=== PATIENT | female | born 1935 | race Caucasian/White ===

== ENCOUNTER 2021-04-18 10:47 | Inpatient (IN) ==
--- NOTE | 2021-04-18 10:56 | Emergency Department Note ---
HPI General Chief complaint: Shortness of Breath/Dyspnea Stated complaint: SOB Time Seen by Provider: 04/18/21 10:56 Source: patient Mode of arrival: EMS Limitations: no limitations History of Present Illness HPI Narrative: 85-year-old female with past medical history of CKD, hypertension, and GERD presenting with cough and confusion. She lives at a nursing facility and was sent over today because she seemed more confused than usual and has had a cough productive of brown sputum for the last 3 days. Patient states she received her Covid booster shot 4 days ago. She endorses chills but no fevers. No headache, chest pain, shortness of breath, abdominal pain, vomiting, or leg swelling. Not on anticoagulation. No other complaints. Related Data Home Medications Medication Instructions Recorded Confirmed acetaminophen 325 mg tablet 650 mg PO Q4H PRN 08/28/20 08/28/20 (Tylenol) aspirin 81 mg chewable tablet 81 mg PO QDAY 08/28/20 08/28/20 baclofen 10 mg tablet 10 mg PO QDAY 08/28/20 08/28/20 ciprofloxacin HCl 500 mg tablet 500 mg PO BID 08/28/20 08/28/20 fluoxetine 10 mg tablet 10 mg PO QDAY 08/28/20 08/28/20 furosemide 20 mg tablet 30 mg PO QAM 08/28/20 08/28/20 lisinopril 10 mg tablet 10 mg PO QDAY 08/28/20 08/28/20 multivitamin (Daily Multi-Vitamin) 1 tab PO QAM 08/28/20 08/28/20 pantoprazole 40 mg tablet,delayed 40 mg PO QDAY 08/28/20 08/28/20 release potassium 20 mg chewable tablet 10 mg PO DAILY 08/28/20 08/28/20 pramipexole 1 mg tablet 1 mg PO TID 08/28/20 08/28/20 pregabalin 50 mg capsule (Lyrica) 50 mg PO QDAY 08/28/20 08/28/20 tramadol 50 mg tablet 50 mg PO TID PRN 08/28/20 08/28/20 Allergies Allergy/AdvReac Type Severity Reaction Status Date / Time No Known Drug Allergies Allergy Unverified 08/28/20 06:56 Review of Systems ROS ROS Narrative: Narrative: Constitutional: Reports chills; Denies fever Eyes: Denies vision change ENT ED: Denies throat pain Cardiovascular: Denies chest pain or palpitations Respiratory: Reports cough and phlegm; Denies shortness of breath Gastrointestinal: Denies abdominal pain, nausea or vomiting Genitourinary: Denies dysuria or frequency Musculoskeletal: Denies back pain or joint swelling Integumentary: Denies rash Neurological: Reports confusion; Denies headache or weakness Psychiatric: Denies anxiety Endocrine: Denies fatigue Hematological/Lymphatic: Denies easy bleeding PFSH Narrative Patient History Narrative: Narrative: Medical/Surgical/Family History All Active Problems (Updated 04/18/21 @ 14:31 by Kevin Grijalva MD) Pneumonia (Acute) Renal insufficiency (Acute) Leukocytosis (Acute) UTI (urinary tract infection) (Acute) Social History Smoking Status: Former smoker Exam Narrative Narrative: Narrative: General Limitations: no limitations General appearance: Present alert and in no apparent distress Head Head: Present atraumatic and normocephalic Eye Eye: Present normal appearance, PERRL and EOMI; Absent scleral icterus or conjunctival injection ENT ENT: Present normal oropharynx and mucous membranes moist Neck Neck: Present normal inspection, full ROM and trachea midline Chest Chest: Present symmetric chest wall rise Respiratory Respiratory: Present rales/crackles (Base and right midlung); Absent respiratory distress, wheezes, stridor or accessory muscle use Cardiovascular Cardiovascular: Present regular rate and normal rhythm; Absent systolic murmur or diastolic murmur Adbominal Abdominal: Present soft; Absent distention, tenderness, guarding, rebound or rigidity Extremities Extremities: Present normal inspection; Absent pretibial edema Back Back: Present normal inspection; Absent CVA tenderness (R), CVA tenderness (L) or spinous process tenderness Neurological Neurological: Present alert, oriented X3 and CN II-XII intact; Absent motor sensory deficit Expanded Neurological Patient oriented to: Present person, place and time Speech: Absent expressive aphasia or dysarthria CRANIAL NERVES: EOM function (II, III, IV, ): Normal, facial sensation (V): Normal, facial palsy (VII): Normal, gag reflex (IX): Normal, spinal accessory function (XI): Normal and tongue deviation (XII): Normal CEREBELLAR FUNCTION: finger to nose: Normal Motor strength - LUE: 5/5 Motor strength - RUE: 5/5 Motor strength - LLE: 5/5 Motor strength - RLE: 5/5 SENSORY EXAM UPPER EXTREMITY: Normal: light touch SENSORY EXAM LOWER EXTREMITY: Normal: light touch Coma Scale Eye Opening: Spontaneous Coma Scale Motor Response: Obeys Commands Coma Scale Verbal Response: Oriented Coma Scale Total: 15 Psychiatric Psychiatric: Present normal affect and normal mood Skin Skin: Present warm (WNL) and dry Course Consultations Consultation #1: Dr. Pack, hospitalist Time: 14:29 Vital Signs Vital signs: Vital Signs Temperature 99.9 F H 04/18/21 10:50 Pulse Rate 105 H 04/18/21 10:50 Respiratory Rate 24 H 04/18/21 10:50 Blood Pressure 110/53 04/18/21 10:50 Pulse Oximetry (%) 98 04/18/21 10:50 Temperature 99.9 F H 04/18/21 10:50 Pulse Rate 101 H 04/18/21 14:00 Respiratory Rate 21 04/18/21 14:00 Blood Pressure 122/89 04/18/21 14:00 Pulse Oximetry (%) 84 L 04/18/21 14:00 MDM MDM Narrative Medical decision making narrative: 85-year-old female presenting with cough and confusion. She was hypoxic on room air to 88%. She is A&O x3 here in the ED. Concern for sepsis given she was initially hypotensive. Will obtain labs, blood cultures, UA, and chest x-ray. 2 L of normal saline ordered. Bladder scan in the ED was 27 cc. Chest x-ray shows evidence of right-sided pneumonia. Labs notable for a leukocytosis to 21.4. Creatinine is 3.1, unknown baseline. Lactate level was normal. She continued to be borderline hypotensive so a 3rd L of normal saline was ordered and her last blood pressure was 122/89. Troponin is elevated to 0.11 in the setting of her kidney disease. Low concern for cardiac etiology gi rayna she had an EKG with no signs of ischemia and patient has not had any chest pain. Vancomycin and Zosyn ordered. UA also shows possible infection, urine culture and blood culture sent. Patient remains stable and alert. I discussed patient with hospitalist Dr. Pack. Will repeat her troponin and then admit for further management. Lab Data Lab results reviewed: Yes I reviewed the patient's lab results. Result diagrams: 04/18/21 11:38 04/18/21 11:38 Labs: Lab Results 04/18/21 04/18/21 04/18/21 Range/Units 11:38 11:38 11:38 WBC 21.4 H (4.5-11.0) K/mcL RBC 2.79 L (3.59-5.38) M/mcL Hgb 8.7 L (11.2-15.7) g/dL Hct 26.4 L (34.1-44.9) % MCV 94.6 (80.0-100.0) fL MCH 31.2 (26.0-34.0) pg MCHC 33.0 (31.0-36.0) g/dL RDW 14.4 (11.5-14.5) % Plt Count 258 (140-440) K/mcL MPV 9.7 (7.4-10.4) fL Neut % (Auto) 88.1 H (38.0-78.0) % Lymph % (Auto) 4.2 L (15.5-49.0) % [place] % (Auto) 7.6 (1.0-12.0) % Eos % (Auto) 0 (0.0-7.0) % Baso % (Auto) 0.1 (0.0-2.0) % Lymph # (Auto) 0.89 L (1.50-4.80) K/mcL [place] # (Auto) 1.62 H (0.10-0.90) K/mcL Eos # (Auto) 0.01 (0.00-0.70) K/mcL Baso # (Auto) 0.03 (0.00-0.30) K/mcL Absolute Neutrophils 18.84 H (1.80-8.00) K/mcL VBG Lactic Acid 0.9 (0.5-2.0) mmol/L Sodium 136 (133-145) mmol/L Potassium 5.2 H (3.3-5.1) mmol/L Chloride 100 (96-108) mmol/L Carbon Dioxide 20 L (22-30) mmol/L Anion Gap 16.0 (8.0-16.0) BUN 83 H (8-23) mg/dL Creatinine 3.1 H (0.6-1.1) mg/dL GFR Calculation 13 Glucose 77 (70-105) mg/dL Calcium 9.0 (8.6-10.4) mg/dL Total Bilirubin 0.3 (0.1-1.0) mg/dL AST 42 H (<32) U/L ALT 26 (<40) U/L Alkaline Phosphatase 93 (39-117) U/L Troponin T (<0.03) ng/mL NT-Pro-B Natriuret Pep 2223.0 H (<450.0) pg/mL Total Protein 7.4 (5.9-8.4) gm/dL Albumin 3.1 L (3.2-5.2) gm/dL Globulin 4.3 H (2.2-3.7) gm/dL Albumin/Globulin Ratio 0.7 L (1.0-2.3) Urine Color Urine Appearance (Clear) Urine pH (5.0-9.0) Ur Specific [place] (1.000-1.035) Urine Protein (Negative) mg/dL Urine Glucose (UA) (Negative) mg/dL Urine Ketones (Negative) mg/dL Urine Occult Blood (Negative) mg/dL Urine Nitrate (Negative) Urine Bilirubin (Negative) mg/dL Urine Urobilinogen mg/dL Ur Leukocyte Esterase (Negative) /uL Urine RBC (0-3) /hpf Urine WBC (0-4) /hpf Ur Squamous Epith Cells (0-4) /hpf Urine Bacteria (0) /hpf Hyaline Casts (0-2) /lph Urine Mucus (None) /hpf Ur Culture Indicated? 04/18/21 04/18/21 Range/Units 11:38 12:50 WBC (4.5-11.0) K/mcL RBC (3.59-5.38) M/mcL Hgb (11.2-15.7) g/dL Hct (34.1-44.9) % MCV (80.0-100.0) fL MCH (26.0-34.0) pg MCHC (31.0-36.0) g/dL RDW (11.5-14.5) % Plt Count (140-440) K/mcL MPV (7.4-10.4) fL Neut % (Auto) (38.0-78.0) % Lymph % (Auto) (15.5-49.0) % [place] % (Auto) (1.0-12.0) % Eos % (Auto) (0.0-7.0) % Baso % (Auto) (0.0-2.0) % Lymph # (Auto) (1.50-4.80) K/mcL [place] # (Auto) (0.10-0.90) K/mcL Eos # (Auto) (0.00-0.70) K/mcL Baso # (Auto) (0.00-0.30) K/mcL Absolute Neutrophils (1.80-8.00) K/mcL VBG Lactic Acid (0.5-2.0) mmol/L Sodium (133-145) mmol/L Potassium (3.3-5.1) mmol/L Chloride (96-108) mmol/L Carbon Dioxide (22-30) mmol/L Anion Gap (8.0-16.0) BUN (8-23) mg/dL Creatinine (0.6-1.1) mg/dL GFR Calculation Glucose (70-105) mg/dL Calcium (8.6-10.4) mg/dL Total Bilirubin (0.1-1.0) mg/dL AST (<32) U/L ALT (<40) U/L Alkaline Phosphatase (39-117) U/L Troponin T 0.11 H* (<0.03) ng/mL NT-Pro-B Natriuret Pep (<450.0) pg/mL Total Protein (5.9-8.4) gm/dL Albumin (3.2-5.2) gm/dL Globulin (2.2-3.7) gm/dL Albumin/Globulin Ratio (1.0-2.3) Urine Color Yellow Urine Appearance Hazy A (Clear) Urine pH 5.0 (5.0-9.0) Ur Specific [place] 1.012 (1.000-1.035) Urine Protein Negative (Negative) mg/dL Urine Glucose (UA) Negative (Negative) mg/dL Urine Ketones Negative (Negative) mg/dL Urine Occult Blood 0.20 (Negative) mg/dL Urine Nitrate Pos A (Negative) Urine Bilirubin Negative (Negative) mg/dL Urine Urobilinogen Negative mg/dL Ur Leukocyte Esterase 25 A (Negative) /uL Urine RBC 1 (0-3) /hpf Urine WBC 8 H (0-4) /hpf Ur Squamous Epith Cells 4 (0-4) /hpf Urine Bacteria Many A (0) /hpf Hyaline Casts 3 H (0-2) /lph Urine Mucus Few A (None) /hpf Ur Culture Indicated? Yes ED POC Tests ED POC Tests: SALAS - Influenza A Negative SALAS - Influenza B Negative SALAS - SARS Antigen Negative Radiology Data Radiology results reviewed: Yes I reviewed the patient's radiology results. Radiology results narrative: Ordering Physician:Kevin Grijalva M.D. Date of Service:04/18/21 Procedure(s):XR chest 1V portable CLINICAL INFORMATION: Cough shortness of breath. History of smoking COMPARISON: None. TECHNIQUE: PA and Lateral views FINDINGS: The heart is normal size for technique. Mediastinum and pulmonary vessels are normal. Small patchy right basilar infiltrate noted with small right pleural effusion. IMPRESSION: Small patchy right basilar infiltrate and tiny right pleural effusion. Interpreted and Authenticated by: Bob Ellis 04/18/21 EKG Data EKG #1: EKG attestation: Yes I reviewed and interpreted this EKG. and Yes There a re no EKG findings of acute coronary syndrome EKG results narrative: Normal sinus rhythm at 94 bpm. No peak T waves. No ST elevation or depression. QRS is normal. Interpretation: no acute changes Discharge Plan Patient/Caregiver Discharge Instructions Pt seen by SOFTWARE ENGINEER SALES/PA only: No Clinical Impression: Pneumonia, Renal insufficiency, Leukocytosis, UTI (urinary tract infection) Patient Disposition: Xfer As Inpt ([facility]) Condition: Fair Follow up with: Kayla Bello ARNP [Primary Care Provider] - Prescriptions: No Action acetaminophen [Tylenol] 325 mg Tablet 650 mg PO Q4H PRN (Reason: pain/elevated temp) 0RF multivitamin [Daily Multi-Vitamin] Tablet 1 tab PO QAM 0RF pramipexole 1 mg Tablet 1 mg PO TID 0RF fluoxetine 10 mg Tablet 10 mg PO QDAY 0RF ciprofloxacin HCl 500 mg Tablet 500 mg PO BID 0RF tramadol 50 mg Tablet 50 mg PO TID PRN (Reason: Pain) 0RF baclofen 10 mg Tablet 10 mg PO QDAY 0RF pantoprazole 40 mg Tablet,Delayed Release (Dr/Ec) 40 mg PO QDAY 0RF lisinopril 10 mg Tablet 10 mg PO QDAY 0RF aspirin 81 mg Tablet,Chewable 81 mg PO QDAY 0RF furosemide 20 mg Tablet 30 mg PO QAM 0RF potassium 20 mg Tablet,Chewable 10 mg PO DAILY 0RF pregabalin [Lyrica] 50 mg Capsule 50 mg PO QDAY 0RF
[2021-04-18] MEDS ORDERED: 0.9 % SODIUM CHLORIDE 1,000 ML IV ONE ×3 (11:31→13:38)
--- NOTE | 2021-04-18 12:07 | XRay Report ---
CLINICAL INFORMATION: Cough shortness of breath. History of smoking COMPARISON: None. TECHNIQUE: PA and Lateral views FINDINGS: The heart is normal size for technique. Mediastinum and pulmonary vessels are normal. Small patchy right basilar infiltrate noted with small right pleural effusion. IMPRESSION: Small patchy right basilar infiltrate and tiny right pleural effusion. Interpreted and Authenticated by: Bob Ellis 04/18/21
[2021-04-18 12:31] LABS: Basophils # (Auto) 0.03 K/mcL (0.00-0.30); Basophils % (Auto) 0.1 % (0.0-2.0); Eosinophils # (Auto) 0.01 K/mcL (0.00-0.70); Eosinophils % (Auto) 0 % (0.0-7.0); Hematocrit 26.4 % (34.1-44.9); Hemoglobin 8.7 g/dL (11.2-15.7); Lymphocytes # (Auto) 0.89 K/mcL (1.50-4.80); Lymphocytes % (Auto) 4.2 % (15.5-49.0); Mean Cell Volume 94.6 fL (80.0-100.0); Mean Platelet Volume 9.7 fL (7.4-10.4); Monocytes # (Auto) 1.62 K/mcL (0.10-0.90); Monocytes % (Auto) 7.6 % (1.0-12.0); Neutrophils % (Auto) 88.1 % (38.0-78.0); Platelet Count 258 K/mcL (140-440); RBC 2.79 M/mcL (3.59-5.38); Red Cell Distribution Width 14.4 % (11.5-14.5); WBC 21.4 K/mcL (4.5-11.0)
[2021-04-18 12:57] LABS: ALT/SGPT 26 U/L (<40); AST/SGOT 42 U/L (<32); Albumin 3.1 gm/dL (3.2-5.2); Albumin/Globulin Ratio 0.7 (1.0-2.3); Alkaline Phosphatase 93 U/L (39-117); Bilirubin,Total 0.3 mg/dL (0.1-1.0); Blood Urea Nitrogen 83 mg/dL (8-23); Carbon Dioxide 20 mmol/L (22-30); Chloride 100 mmol/L (96-108); Globulin 4.3 gm/dL (2.2-3.7); Glomerular Filtration Rate 13; Glucose 77 mg/dL (70-105)
[2021-04-18] MEDS ORDERED: PIPERACILLIN SODIUM/TAZOBACTAM 3.375 GM in DEXTROSE 5% IN WATER 50 ML IV ONE (12:58)
[2021-04-18] MEDS ORDERED: VANCOMYCIN 1,500 MG in 0.9 % SODIUM CHLORIDE 500 ML IV ONE (12:58)
[2021-04-18 14:05] LABS: Appearance,Urine HAZY (Clear); Bacteria,Urine MANY /hpf (0); Bilirubin,Urine Negative (Negative); Color,Urine YELLOW; Culture Indicated,Urine Yes; Glucose,Urine (UA) Negative (Negative); Ketones,Urine Negative (Negative); Leukocyte Esterase,Urine 25 /uL (Negative); Mucus,Urine FEW /hpf; Nitrate,Urine POS (Negative); Protein,Urine Negative (Negative); Specific Gravity,Urine 1.012 (1.000-1.035); Urine Hyaline Cast 3 /lph (0-2); Urine RBC 1 /hpf (0-3); Urine Squamous Epithelial Cell 4 /hpf (0-4); Urine WBC 8 /hpf (0-4); Urobilinogen,Urine Negative
--- NOTE | 2021-04-18 15:19 | Internal Med History&Physical ---
HPI History of Present Illness Patient information: Note initiated : 04/18/21 at 3:08 pm Service Date, if different from initiated Date: [] Patient: Savanah Rubio a 85 y/o F admitted on for Shortness of breath. Chief Complaint: [] History of present illness: Ms. Rubio is a 85 year old F Who resides at [facility] was brought in from the facility because she was confused, also report of productive cough over the last 2 3 days. Per notes it was brown sputum but per patient who is now mentally more clear she states it was bloody mucus. She does report some shortness of breath with past couple days. Does report chills as well. She does have a history of obstructive sleep apnea and uses CPAP and is working on getting oxygen at night as well. Recent received a Covid booster. Covid and flu negative in the ED. Troponin 0 0.11, patient denies chest pain she does have acute on chronic CKD. Per discussion with the ED physician no EKG changes. Suspect secondary to demand but pending follow-up troponin before admission. She was found to be hypoxic in the low 80s on admit, she was hypotensive. She received several liters of IV fluid and supplemental oxygen with improvement in vital signs and her mentation. Antibiotic started in the ED. Review of Systems: Positive as above. Denies headache/fever/nausea/vomiting/chest or abdominal pain/diarrhea. Otherwise see above. PFSH PFSH All Active Problems (Updated 04/18/21 @ 14:31 by Kevin Grijalva MD) Pneumonia (Acute) Renal insufficiency (Acute) Leukocytosis (Acute) UTI (urinary tract infection) (Acute) MEDS/ALLERGIES Home Medications and Allergies Home Medications Medication Instructions Recorded Confirmed Type acetaminophen 325 mg tablet 650 mg PO Q4H PRN 08/28/20 08/28/20 History (Tylenol) aspirin 81 mg chewable tablet 81 mg PO QDAY 08/28/20 04/18/21 History baclofen 10 mg tablet 10 mg PO QDAY 08/28/20 04/18/21 History ciprofloxacin HCl 500 mg tablet 500 mg PO BID 08/28/20 08/28/20 History fluoxetine 10 mg tablet 10 mg PO QDAY 08/28/20 04/18/21 History furosemide 20 mg tablet 30 mg PO QAM 08/28/20 08/28/20 History lisinopril 10 mg tablet 10 mg PO QDAY 08/28/20 04/18/21 History multivitamin (Daily Multi-Vitamin) 1 tab PO QAM 08/28/20 04/18/21 History pantoprazole 40 mg tablet,delayed 40 mg PO QDAY 08/28/20 08/28/20 History release potassium 20 mg chewable tablet 10 mg PO DAILY 08/28/20 08/28/20 History pramipexole 1 mg tablet 1 mg PO TID PRN 08/28/20 04/18/21 History pregabalin 50 mg capsule (Lyrica) 50 mg PO HS 08/28/20 04/18/21 History tramadol 50 mg tablet 50 mg PO TID PRN 08/28/20 08/28/20 History fluticasone furoate 100 1 ea INHALATION DAILY 04/18/21 04/18/21 History mcg-vilanterol 25 mcg/dose inhalation powder (Breo Ellipta) tiotropium bromide 18 mcg capsule 18 mcg INHALATION DAILY 04/18/21 04/18/21 History with inhalation device (Spiriva with HandiHaler) torsemide 20 mg tablet 20 mg PO DAILY 04/18/21 04/18/21 History Allergies Allergy/AdvReac Type Severity Reaction Status Date / Time No Known Drug Allergies Allergy Unverified 08/28/20 06:56 EXAM Constitutional Vitals: Temp Pulse Resp BP Pulse Ox 99.9 F H 39 L 23 H 127/106 64 L 04/18/21 10:50 04/18/21 14:30 04/18/21 14:45 04/18/21 14:45 04/18/21 14:30 Exam: General: Alert, Awake, No acute Distress, obese Eyes/N/T: EOMI, PERRL, dryMM Head/Neck: neck supple, normocephalic atraumatic CV: RRR, 1/6 SM, normal s1/s2 Pulm: Diminished b/l, no wheezing Abd: soft, nontender, +BS x4 Ext: no clubbing/cyanosis/ Neuro: Alert, no focal deficits, moves all extremities, CN 2-12 grossly intact, symmetrical strength b/l upper/lower, sensations intact b/l upper/lower Skin: warm/dry DATA Data Completed and Pending Labs: Labs from last 24 hours 04/18/21 04/18/2104/18/21 14:38 12:50 11:38 WBC RBC Hgb Hct MCV MCH MCHC RDW Plt Count MPV Neut % (Auto) Lymph % (Auto) [place] % (Auto) Eos % (Auto) Baso % (Auto) Lymph # (Auto) [place] # (Auto) Eos # (Auto) Baso # (Auto) Absolute Neutrophils VBG Lactic Acid Sodium Potassium Chloride Carbon Dioxide Anion Gap BUN Creatinine GFR Calculation Glucose Calcium Total Bilirubin AST ALT Alkaline Phosphatase Troponin T Pending 0.11 H* C-Reactive Protein NT-Pro-B Natriuret Pep Total Protein Albumin Globulin Albumin/Globulin Ratio Procalcitonin Urine Color Yellow Urine Appearance Hazy A Urine pH 5.0 Ur Specific [place] 1.012 Urine Protein Negative Urine Glucose (UA) Negative Urine Ketones Negative Urine Occult Blood 0.20 Urine Nitrate Pos A Urine Bilirubin Negative Urine Urobilinogen Negative Ur Leukocyte Esterase 25 A Urine RBC 1 Urine WBC 8 H Ur Squamous Epith Cells 4 Urine Bacteria Many A Hyaline Casts 3 H Urine Mucus Few A Ur Culture Indicated? Yes 04/18/21 04/18/21 04/18/21 11:38 11:38 11:38 WBC 21.4 H RBC 2.79 L Hgb 8.7 L Hct 26.4 L MCV 94.6 MCH 31.2 MCHC 33.0 RDW 14.4 Plt Count 258 MPV 9.7 Neut % (Auto) 88.1 H Lymph % (Auto) 4.2 L [place] % (Auto) 7.6 Eos % (Auto) 0 Baso % (Auto) 0.1 Lymph # (Auto) 0.89 L [place] # (Auto) 1.62 H Eos # (Auto) 0.01 Baso # (Auto) 0.03 Absolute Neutrophils 18.84 H VBG Lactic Acid 0.9 Sodium 136 Potassium 5.2 H Chloride 100 Carbon Dioxide 20 L Anion Gap 16.0 BUN 83 H Creatinine 3.1 H GFR Calculation 13 Glucose 77 Calcium 9.0 Total Bilirubin 0.3 AST 42 H ALT 26 Alkaline Phosphatase 93 Troponin T C-Reactive Protein NT-Pro-B Natriuret Pep 2223.0 H Total Protein 7.4 Albumin 3.1 L Globulin 4.3 H Albumin/Globulin Ratio 0.7 L Procalcitonin Urine Color Urine Appearance Urine pH Ur Specific [place] Urine Protein Urine Glucose (UA) Urine Ketones Urine Occult Blood Urine Nitrate Urine Bilirubin Urine Urobilinogen Ur Leukocyte Esterase Urine RBC Urine WBC Ur Squamous Epith Cells Urine Bacteria Hyaline Casts Urine Mucus Ur Culture Indicated? 04/18/21 04/18/21 11:33 11:33 WBC RBC Hgb Hct MCV MCH MCHC RDW Plt Count MPV Neut % (Auto) Lymph % (Auto) [place] % (Auto) Eos % (Auto) Baso % (Auto) Lymph # (Auto) [place] # (Auto) Eos # (Auto) Baso # (Auto) Absolute Neutrophils VBG Lactic Acid Sodium Potassium Chloride Carbon Dioxide Anion Gap BUN Creatinine GFR Calculation Glucose Calcium Total Bilirubin AST ALT Alkaline Phosphatase Troponin T C-Reactive Protein Pending NT-Pro-B Natriuret Pep Total Protein Albumin Globulin Albumin/Globulin Ratio Procalcitonin Pending Urine Color Urine Appearance Urine pH Ur Specific [place] Urine Protein Urine Glucose (UA) Urine Ketones Urine Occult Blood Urine Nitrate Urine Bilirubin Urine Urobilinogen Ur Leukocyte Esterase Urine RBC Urine WBC Ur Squamous Epith Cells Urine Bacteria Hyaline Casts Urine Mucus Ur Culture Indicated? 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
[2021-04-18] MEDS ORDERED: POLYETHYLENE GLYCOL 3350 17 GM PACKET PO PRN (16:53)
[2021-04-18] MEDS ORDERED: HYDROcodone/APAP 5/325MG TABLET PO PRN (16:53)
[2021-04-18] MEDS ORDERED: MAGNESIUM SULFATE 2 GM/50 ML BAG IV PRN (16:53)
[2021-04-18] MEDS ORDERED: POTASSIUM CHLORIDE 20 MEQ TABLET PO PRN ×2 (16:53)
[2021-04-18] MEDS ORDERED: POTASSIUM CHLORIDE 40 MEQ in DEXTROSE 5% IN WATER 500 ML IV PRN (16:53)
[2021-04-18] MEDS ORDERED: SENNOSIDES 1 TABLET PO PRN (16:53)
[2021-04-18] MEDS ORDERED: ACETAMINOPHEN 325 MG TABLET PO PRN (16:53)
[2021-04-18] MEDS: DOCUSATE SODIUM 100 MG CAPSULE PO SCH (22:28)
[2021-04-18] MEDS: cefTRIAXone 2 GM in DEXTROSE 5% IN WATER 50 ML IV SCH (22:40)
[2021-04-18] MEDS: HEPARIN 5,000 UNIT/ML VIAL SQ SCH (22:41)
[2021-04-18] MEDS: AZITHROMYCIN 500 MG in DEXTROSE 5% IN WATER 250 ML IV SCH (22:41)
[2021-04-18] MEDS: 0.9 % SODIUM CHLORIDE 10 ML SYRINGE IV SCH (22:42)
[2021-04-19] MEDS: 0.9 % SODIUM CHLORIDE 10 ML SYRINGE IV SCH ×3 (04:26→20:10)
[2021-04-19 07:08] LABS: Hematocrit 23.5 % (34.1-44.9); Hemoglobin 7.2 g/dL (11.2-15.7); Mean Cell Volume 98.3 fL (80.0-100.0); Mean Corpuscular HGB Conc 30.6 g/dL (31.0-36.0); Mean Platelet Volume 9.8 fL (7.4-10.4); Platelet Count 218 K/mcL (140-440); RBC 2.39 M/mcL (3.59-5.38); Red Cell Distribution Width 14.7 % (11.5-14.5); WBC 20.3 K/mcL (4.5-11.0)
--- NOTE | 2021-04-19 07:26 | Internal Med Progress Note ---
SUBJECTIVE Subjective Patient information: Note initiated : 04/19/21 at 7:21 am Service Date, if different from initiated Date: [] Patient: Savanah Rubio 85 y/o F admitted on 04/18/21 for Shortness of breath. Chief Complaint: [] Interval history: History of present illness: Ms. Rubio is a 85 year old F Who resides at [facility] was brought in from the facility because she was confused, also report of productive cough over the last 2 3 days. Per notes it was brown sputum but per patient who is now mentally more clear she states it was bloody mucus. She does report some shortness of breath with past couple days. Does report chills as well. She does have a history of obstructive sleep apnea and uses CPAP and is working on getting oxygen at night as well. Recent received a Covid booster. Covid and flu negative in the ED. Troponin 0 0.11, patient denies chest pain she does have acute on chronic CKD. Per discussion with the ED physician no EKG changes. Suspect secondary to demand but pending follow-up troponin before admission. She was found to be hypoxic in the low 80s on admit, she was hypotensive. She received several liters of IV fluid and supplemental oxygen with improvement in vital signs and her mentation. Antibiotic started in the ED. 04/19 States she slept all right but then complained that she needs better sleep. She has had diarrhea x2, mild cough today, some shortness of breath with pleuritic right-sided chest pain. Review of Systems: denies headache/fever/chills/nausea/vomiting/chest or abdominal pain/diarrhea. Otherwise see above. Constitutional Vitals: Vital Signs Temp Pulse Resp BP Pulse Ox 97.1 F 81 20 94/49 93 04/19/21 06:54 04/19/21 06:54 04/19/21 06:54 04/19/21 06:54 04/19/21 06:54 Period Temp Pulse Resp BP Sys/Travis Pulse Ox Last 24 Hr 97.1 F-99.9 F 39-155 15-28 60-209/29-191 64-100 Intake and Output 04/18/21 04/19/21 04/19/21 21:59 05:59 13:59 Intake Total 1500 750 Output Total 950 Balance 1500 -200 Weight 95.572 kg Intake & Output: Intake & Output 04/18/21 04/19/21 04/19/21 21:59 05:59 13:59 Intake Total 1500 750 Output Total 950 Balance 1500 -200 Weight 95.572 kg Intake: IV 1500 150 Sodium Chloride 0.9% 1,000 ml @ 1000 Wide Open IV BOLUS ONE Rx#: [id number] Zithromax 500 mg In Dextrose 5% 100 in Water 250 ml @ 250 mls/hr IV Q24H [facility] Rx#:[id number] Vancomycin 1,500 mg In Sodium 500 Chloride 0.9% 500 ml @ 333.3 mls/hr IV ONCE ONE Rx#: [id number] Rocephin 2 gm In Dextrose 5% in 50 Water 50 ml @ 100 mls/hr IV Q24H [facility] Rx#:[id number] Oral 600 Output: Void Amount 950 Other: # Voids 1 Exam: General: Alert, Awake, No acute Distress, obese Eyes/N/T: EOMI, Head/Neck: neck supple, CV: RRR, 1/6 SM, Pulm: Diminished b/l, Right side rhonchi, no wheezing Abd: soft, nontender, +BS x4 Ext: no clubbing/cyanosis, trace b/l LE edema Neuro: Alert, no focal deficits, moves all extremities, Skin: warm/dry OBJ DATA Labs CBC & Chem 7: 04/19/21 06:09 04/19/21 06:09 Labs: Abnormal Lab Results 04/19/21 04/18/21 04/18/21 06:09 14:38 12:50 WBC 20.3 H RBC 2.39 L Hgb 7.2 L Hct 23.5 L MCHC 30.6 L RDW 14.7 H Neut % (Auto) Lymph % (Auto) Lymph # (Auto) [place] # (Auto) Absolute Neutrophils Potassium Carbon Dioxide BUN Creatinine AST Troponin T 0.10 H* C-Reactive Protein NT-Pro-B Natriuret Pep Albumin Globulin Albumin/Globulin Ratio Procalcitonin Urine Appearance Hazy A Urine Nitrate Pos A Ur Leukocyte Esterase 25 A Urine WBC 8 H Urine Bacteria Many A Hyaline Casts 3 H Urine Mucus Few A 04/18/21 04/18/21 04/18/21 11:38 11:38 11:38 WBC 21.4 H RBC 2.79 L Hgb 8.7 L Hct 26.4 L MCHC RDW Neut % (Auto) 88.1 H Lymph % (Auto) 4.2 L Lymph # (Auto) 0.89 L [place] # (Auto) 1.62 H Absolute Neutrophils 18.84 H Potassium 5.2 H Carbon Dioxide 20 L BUN 83 H Creatinine 3.1 H AST 42 H Troponin T 0.11 H* C-Reactive Protein NT-Pro-B Natriuret Pep 2223.0 H Albumin 3.1 L Globulin 4.3 H Albumin/Globulin Ratio 0.7 L Procalcitonin Urine Appearance Urine Nitrate Ur Leukocyte Esterase Urine WBC Urine Bacteria Hyaline Casts Urine Mucus 04/18/21 04/18/21 11:33 11:33 WBC RBC Hgb Hct MCHC RDW Neut % (Auto) Lymph % (Auto) Lymph # (Auto) [place] # (Auto) Absolute Neutrophils Potassium Carbon Dioxide BUN Creatinine AST Troponin T C-Reactive Protein 27.80 H NT-Pro-B Natriuret Pep Albumin Globulin Albumin/Globulin Ratio Procalcitonin 1.18 H Urine Appearance Urine Nitrate Ur Leukocyte Esterase Urine WBC Urine Bacteria Hyaline Casts Urine Mucus Meds: Medications Acetaminophen (Acetaminophen 325 Mg Tablet) 650 mg PO Q6HP PRN; Protocol PRN Reason: Per Pain Protocol/Fever > 101 Hydrocodone Bitart/Acetaminophen (Hydrocodone/Apap 5/325mg Tablet) 1 tab PO Q4HP PRN PRN Reason: PAIN LEVEL 3-6 Docusate Sodium (Docusate Sodium 100 Mg Capsule) 100 mg PO BID [facility] Last Admin: 04/18/21 22:28 Dose: Not Given Documented by: Heparin Sodium (Porcine) (Heparin 5,000 Unit/Ml Vial) 5,000 unit SQ Q12 [facility] Last Admin: 04/18/21 22:41 Dose: 5,000 unit Documented by: Potassium Chloride 40 meq/ (Dextrose) 520 mls @ 130 mls/hr IV UD PRN PRN Reason: Potassium < 3 Magnesium Sulfate (Magnesium Sulfate) 2 gm in 50 mls @ 50 mls/hr IV UD PRN PRN Reason: Magnesium </= 1.6 Ceftriaxone Sodium 2 gm/ (Dextrose) 50 mls @ 100 mls/hr IV Q24H [facility]; Protocol Last Infusion: 04/18/21 23:57 Dose: Infused Documented by: Azithromycin 500 mg/ Dextrose 250 mls @ 250 mls/hr IV Q24H [facility]; Protocol Stop: 04/20/21 19:59 Last Infusion: 04/18/21 23:05 Dose: 0 mls/hr Documented by: Ondansetron HCl (Ondansetron 4 Mg/2 Ml Vial) 4 mg IV Q4HP PRN PRN Reason: Nausea And Vomiting Pantoprazole Sodium (Pantoprazole 40 Mg Tablet) 40 mg PO QAMAC [facility] Polyethylene Glycol (Polyethylene Glycol 3350 17 Gm Packet) 17 gm PO DAILYP PRN PRN Reason: Constipation Potassium Chloride (Potassium Chloride 20 Meq Tablet) 40 meq PO UD PRN PRN Reason: Potssium is 3-3.5 Potassium Chloride (Potassium Chloride 20 Meq Tablet) 40 meq PO UD PRN PRN Reason: Potassium < 3 Senna (Sennosides 1 Tablet) 2 tab PO DAILYP PRN PRN Reason: Constipation Sodium Chloride (0.9 % Sodium Chloride 10 Ml Syringe) 10 ml IV Q8 [facility] Last Admin: 04/19/21 04:26 Dose: 10 ml Documented by: A/P Narrative A/P Narrative: A: *PNA, right side: -leukocytosis, elevated PCT/CRP *Sepsis w/hypotension(resolved in ED with IVF bolus): improving *UTI ( ): *Encephalopathy: 2/2 hypoxia -Improved *Acute hypoxic respiratory failure: -on 2L NC *FLAVIA on CKD IV: -improving *Anemia, chronic: -7.2<8.7 *COPD (not on home O2, but will be getting at night): *JERMAN on CPAP: In process of getting home O2 for night *Obesity: *HTN: *GERD: *Depression: *Chronic neck/back pain *RLS: P: -Rocephin/azithromycin, pending SC/BC/UC, mrsa screen neg -IS/Acapella, prn nebs -Wean O2 as able -f/u renal fxn -f/u H&H -f/u CXR -home cpap -hold home ACEI for FLAVIA and hypotension -hold torsemide for flavia -pt/ot -ppx: lovenox / home ppi full code Time Spent With Patient Time: Total time spent is greater than 50% in coordination of care (as documented) at patient's floor/unit and/or counseling patient: QUALITY VTE Deep Vein Thrombosis/Pulmonary Embolism Present on Admission: No
[2021-04-19 07:35] LABS: ALT/SGPT 24 U/L (<40); AST/SGOT 34 U/L (<32); Albumin 2.5 gm/dL (3.2-5.2); Albumin/Globulin Ratio 0.7 (1.0-2.3); Alkaline Phosphatase 84 U/L (39-117); Bilirubin,Direct < 0.2 mg/dL (0-0.3); Bilirubin,Total 0.2 mg/dL (0.1-1.0); Blood Urea Nitrogen 65 mg/dL (8-23); Calcium 8.2 mg/dL (8.6-10.4); Carbon Dioxide 19 mmol/L (22-30); Chloride 105 mmol/L (96-108); Globulin 3.8 gm/dL (2.2-3.7); Glomerular Filtration Rate 21; Glucose 95 mg/dL (70-105); Lactate Dehydrogenase 208 U/L (135-225); Phosphorous 4.1 mg/dL (2.5-4.5); Triglycerides 133 mg/dL (<150); Uric Acid 10.3 mg/dL (2.5-8.0)
[2021-04-19 08:08] LABS: Anisocytosis 1+ (None Seen); Lymphocytes % 15 % (15-49); Monocytes % (Manual) 9 % (1-12); Platelet Estimate NORMAL (Normal); RBC Morphology ABNORMAL (Normal); Segmented Neutrophils % 76 % (38-78)
[2021-04-19] MEDS: PANTOPRAZOLE 40 MG TABLET PO SCH (08:11)
[2021-04-19] MEDS: DOCUSATE SODIUM 100 MG CAPSULE PO SCH (09:53)
[2021-04-19] MEDS: FLUTICASONE FUROATE VILANTEROL INH SCH (09:54)
[2021-04-19] MEDS: TIOTROPIUM BROMIDE 18 MCG INHALANT INH SCH (09:54)
[2021-04-19] MEDS: ASPIRIN 81 MG TAB.CHEW PO SCH (09:57)
[2021-04-19] MEDS: BACLOFEN 10 MG TABLET PO SCH (09:57)
[2021-04-19] MEDS: FLUoxetine HCL 10 MG CAPSULE PO SCH (09:57)
[2021-04-19] MEDS: cefTRIAXone 2 GM in DEXTROSE 5% IN WATER 50 ML IV SCH (10:14)
[2021-04-19] MEDS ORDERED: diphenhydrAMINE 25 MG CAPSULE PO PRN (10:18)
[2021-04-19] MEDS: HEPARIN 5,000 UNIT/ML VIAL SQ SCH ×2 (10:23→20:08)
[2021-04-19] MEDS: traMADol 50 MG TABLET PO PRN ×2 (10:30→20:08)
[2021-04-19] MEDS: AZITHROMYCIN 500 MG in DEXTROSE 5% IN WATER 250 ML IV SCH (10:53)
[2021-04-19 15:06] LABS: Hemoglobin 7.3 g/dL (11.2-15.7)
[2021-04-19] MEDS: MELATONIN 3 MG TABLET PO SCH (20:08)
[2021-04-19] MEDS: PRAMIPEXOLE 1 MG TABLET PO PRN (20:08)
[2021-04-19] MEDS: PREGABALIN 25 MG CAPSULE PO SCH (20:08)
[2021-04-19] MEDS: ONDANSETRON 4 MG/2 ML VIAL IV PRN (22:24)
[2021-04-20] MEDS: 0.9 % SODIUM CHLORIDE 10 ML SYRINGE IV SCH ×2 (05:31→21:56)
[2021-04-20 06:41] LABS: Basophils # (Auto) 0.02 K/mcL (0.00-0.30); Basophils % (Auto) 0.1 % (0.0-2.0); Eosinophils # (Auto) 0.05 K/mcL (0.00-0.70); Eosinophils % (Auto) 0.3 % (0.0-7.0); Hematocrit 25.9 % (34.1-44.9); Hemoglobin 7.8 g/dL (11.2-15.7); Lymphocytes # (Auto) 1.61 K/mcL (1.50-4.80); Lymphocytes % (Auto) 9.2 % (15.5-49.0); Mean Cell Volume 99.6 fL (80.0-100.0); Mean Corpuscular HGB Conc 30.1 g/dL (31.0-36.0); Mean Platelet Volume 9.8 fL (7.4-10.4); Monocytes # (Auto) 0.94 K/mcL (0.10-0.90); Monocytes % (Auto) 5.4 % (1.0-12.0); Platelet Count 255 K/mcL (140-440); Red Cell Distribution Width 14.9 % (11.5-14.5); WBC 17.5 K/mcL (4.5-11.0)
[2021-04-20 07:10] LABS: ALT/SGPT 32 U/L (<40); AST/SGOT 36 U/L (<32); Albumin 2.8 gm/dL (3.2-5.2); Albumin/Globulin Ratio 0.7 (1.0-2.3); Alkaline Phosphatase 97 U/L (39-117); Bilirubin,Direct < 0.2 mg/dL (0-0.3); Bilirubin,Total < 0.2 mg/dL (0.1-1.0); Blood Urea Nitrogen 44 mg/dL (8-23); Calcium 8.4 mg/dL (8.6-10.4); Carbon Dioxide 19 mmol/L (22-30); Chloride 108 mmol/L (96-108); Globulin 4.1 gm/dL (2.2-3.7); Glomerular Filtration Rate 29; Glucose 76 mg/dL (70-105); Lactate Dehydrogenase 223 U/L (135-225); Phosphorous 3.2 mg/dL (2.5-4.5); Triglycerides 171 mg/dL (<150); Uric Acid 9.4 mg/dL (2.5-8.0)
--- NOTE | 2021-04-20 07:19 | Internal Med Progress Note ---
SUBJECTIVE Subjective Patient information: Note initiated : 04/20/21 at 7:16 am Service Date, if different from initiated Date: [] Patient: Savanah Rubio 85 y/o F admitted on 04/18/21 for Shortness of breath. Chief Complaint: [] Interval history: History of present illness: Ms. Rubio is a 85 year old F Who resides at [facility] was brought in from the facility because she was confused, also report of productive cough over the last 2 3 days. Per notes it was brown sputum but per patient who is now mentally more clear she states it was bloody mucus. She does report some shortness of breath with past couple days. Does report chills as well. She does have a history of obstructive sleep apnea and uses CPAP and is working on getting oxygen at night as well. Recent received a Covid booster. Covid and flu negative in the ED. Troponin 0 0.11, patient denies chest pain she does have acute on chronic CKD. Per discussion with the ED physician no EKG changes. Suspect secondary to demand but pending follow-up troponin before admission. She was found to be hypoxic in the low 80s on admit, she was hypotensive. She received several liters of IV fluid and supplemental oxygen with improvement in vital signs and her mentation. Antibiotic started in the ED. 04/19 States she slept all right but then complained that she needs better sleep. She has had diarrhea x2, mild cough today, some shortness of breath with pleuritic right-sided chest pain. 04/20 Patient feeling better today. On room air. White blood cell count slowly improving, creatinine improved. Procalcitonin now starting to improve. Occasional cough. Awaiting final sputum culture Review of Systems: denies headache/fever/chills/nausea/vomiting/chest or abdominal pain/diarrhea. Otherwise see above. Constitutional Vitals: Vital Signs Temp Pulse Resp BP Pulse Ox 97 F 88 17 97/44 93 04/20/21 06:51 04/20/21 06:51 04/20/21 06:51 04/20/21 06:51 04/20/21 06:51 Period Temp Pulse Resp BP Sys/Travis Pulse Ox Last 24 Hr 97 F-98.4 F 76-88 17-20 89-126/44-64 91-95 Intake and Output 04/19/21 04/20/2104/20/21 21:59 05:59 13:59 Intake Total 700 Output Total 1 Balance 699 Weight 95.368 kg Intake & Output: Intake & Output 04/19/21 04/20/21 04/20/21 21:59 05:59 13:59 Intake Total 700 Output Total 1 Balance 699 Weight 95.368 kg Intake: Oral 700 Output: # of times incontinent of urine 1 Other: # Voids 2 4 Exam: General: Alert, Awake, No acute Distress, obese Eyes/N/T: EOMI, Head/Neck: neck supple, CV: RRR, 1/6 SM, Pulm: Diminished b/l, Right side rhonchi improving, no wheezing Abd: soft, nontender, +BS x4 Ext: no clubbing/cyanosis, trace b/l LE edema Neuro: Alert, no focal deficits, moves all extremities, Skin: warm/dry OBJ DATA Labs CBC & Chem 7: 04/20/21 05:20 04/20/21 05:20 Labs: Abnormal Lab Results 04/20/21 04/20/21 04/19/21 05:20 05:20 14:38 WBC 17.5 H RBC 2.60 L Hgb 7.8 L 7.3 L Hct 25.9 L 23.0 L MCHC 30.1 L RDW 14.9 H Neut % (Auto) 85.0 H Lymph % (Auto) 9.2 L Lymph # (Auto) [place] # (Auto) 0.94 H Absolute Neutrophils 14.83 H RBC Morphology Anisocytosis Potassium Carbon Dioxide 19 L BUN 44 H Creatinine 1.6 H Uric Acid 9.4 H Calcium 8.4 L Magnesium AST 36 H Troponin T C-Reactive Protein 28.30 H NT-Pro-B Natriuret Pep Albumin 2.8 L Globulin 4.1 H Albumin/Globulin Ratio 0.7 L Triglycerides 171 H Procalcitonin Urine Appearance Urine Nitrate Ur Leukocyte Esterase Urine WBC Urine Bacteria Hyaline Casts Urine Mucus 04/19/21 04/19/21 04/19/21 06:09 06:09 06:09 WBC 20.3 H RBC 2.39 L Hgb 7.2 L Hct 23.5 L MCHC 30.6 L RDW 14.7 H Neut % (Auto) Lymph % (Auto) Lymph # (Auto) [place] # (Auto) Absolute Neutrophils RBC Morphology Abnormal A Anisocytosis 1+ A Potassium Carbon Dioxide 19 L BUN 65 H Creatinine 2.1 H Uric Acid 10.3 H Calcium 8.2 L Magnesium 2.6 H AST 34 H Troponin T C-Reactive Protein NT-Pro-B Natriuret Pep Albumin 2.5 L Globulin 3.8 H Albumin/Globulin Ratio 0.7 L Triglycerides Procalcitonin 1.58 H Urine Appearance Urine Nitrate Ur Leukocyte Esterase Urine WBC Urine Bacteria Hyaline Casts Urine Mucus 04/19/21 04/18/21 04/18/21 06:09 14:38 12:50 WBC RBC Hgb Hct MCHC RDW Neut % (Auto) Lymph % (Auto) Lymph # (Auto) [place] # (Auto) Absolute Neutrophils RBC Morphology Anisocytosis Potassium Carbon Dioxide BUN Creatinine Uric Acid Calcium Magnesium AST Troponin T 0.10 H* C-Reactive Protein 32.20 H NT-Pro-B Natriuret Pep Albumin Globulin Albumin/Globulin Ratio Triglycerides Procalcitonin Urine Appearance Hazy A Urine Nitrate Pos A Ur Leukocyte Esterase 25 A Urine WBC 8 H Urine Bacteria Many A Hyaline Casts 3 H Urine Mucus Few A 04/18/21 04/18/21 04/18/21 11:38 11:38 11:38 WBC 21.4 H RBC 2.79 L Hgb 8.7 L Hct 26.4 L MCHC RDW Neut % (Auto) 88.1 H Lymph % (Auto) 4.2 L Lymph # (Auto) 0.89 L [place] # (Auto) 1.62 H Absolute Neutrophils 18.84 H RBC Morphology Anisocytosis Potassium 5.2 H Carbon Dioxide 20 L BUN 83 H Creatinine 3.1 H Uric Acid Calcium Magnesium AST 42 H Troponin T 0.11 H* C-Reactive Protein NT-Pro-B Natriuret Pep 2223.0 H Albumin 3.1 L Globulin 4.3 H Albumin/Globulin Ratio 0.7 L Triglycerides Procalcitonin Urine Appearance Urine Nitrate Ur Leukocyte Esterase Urine WBC Urine Bacteria Hyaline Casts Urine Mucus 04/18/21 04/18/21 11:33 11:33 WBC RBC Hgb Hct MCHC RDW Neut % (Auto) Lymph % (Auto) Lymph # (Auto) [place] # (Auto) Absolute Neutrophils RBC Morphology Anisocytosis Potassium Carbon Dioxide BUN Creatinine Uric Acid Calcium Magnesium AST Troponin T C-Reactive Protein 27.80 H NT-Pro-B Natriuret Pep Albumin Globulin Albumin/Globulin Ratio Triglycerides Procalcitonin 1.18 H Urine Appearance Urine Nitrate Ur Leukocyte Esterase Urine WBC Urine Bacteria Hyaline Casts Urine Mucus Meds: Medications Acetaminophen (Acetaminophen 325 Mg Tablet) 650 mg PO Q6HP PRN; Protocol PRN Reason: Per Pain Protocol/Fever > 101 Aspirin (Aspirin 81 Mg Tab.Chew) 81 mg PO QDAY [facility] Last Admin: 04/19/21 09:57 Dose: 81 mg Documented by: Baclofen (Baclofen 10 Mg Tablet) 10 mg PO QDAY [facility] Last Admin: 04/19/21 09:57 Dose: 10 mg Documented by: Diphenhydramine HCl (Diphenhydramine 25 Mg Capsule) 25 mg PO HSP PRN PRN Reason: Insomnia Fluoxetine HCl (Fluoxetine Hcl 10 Mg Capsule) 10 mg PO DAILY [facility] Last Admin: 04/19/21 09:57 Dose: 10 mg Documented by: Heparin Sodium (Porcine) (Heparin 5,000 Unit/Ml Vial) 5,000 unit SQ Q12 [facility] Last Admin: 04/19/21 20:08 Dose: 5,000 unit Documented by: Potassium Chloride 40 meq/ (Dextrose) 520 mls @ 130 mls/hr IV UD PRN PRN Reason: Potassium < 3 Magnesium Sulfate (Magnesium Sulfate) 2 gm in 50 mls @ 50 mls/hr IV UD PRN PRN Reason: Magnesium </= 1.6 Ceftriaxone Sodium 2 gm/ (Dextrose) 50 mls @ 100 mls/hr IV Q24H [facility]; Protocol Last Infusion: 04/19/21 10:50 Dose: Infused Documented by: Azithromycin 500 mg/ Dextrose 250 mls @ 250 mls/hr IV Q24H [facility]; Protocol Stop: 04/20/21 19:59 Last Infusion: 04/19/21 11:55 Dose: Infused Documented by: Melatonin (Melatonin 3 Mg Tablet) 3 mg PO QHS [facility] Last Admin: 04/19/21 20:08 Dose: 3 mg Documented by: Ondansetron HCl (Ondansetron 4 Mg/2 Ml Vial) 4 mg IV Q4HP PRN PRN Reason: Nausea And Vomiting Last Admin: 04/19/21 22:24 Dose: 4 mg Documented by: Pantoprazole Sodium (Pantoprazole 40 Mg Tablet) [facility] Admin: 04/19/21 08:11 Dose: 40 mg Documented by: Fluticasone Furoate- Vilanterol [Breo Ellipta] 100 Mcg Inhaler 1 dose INH DAILY [facility] Last Admin: 04/19/21 09:54 Dose: Not Given Documented by: Polyethylene Glycol (Polyethylene Glycol 3350 17 Gm Packet) 17 gm PO DAILYP PRN PRN Reason: Constipation Potassium Chloride (Potassium Chloride 20 Meq Tablet) 40 meq PO UD PRN PRN Reason: Potssium is 3-3.5 Potassium Chloride (Potassium Chloride 20 Meq Tablet) 40 meq PO UD PRN PRN Reason: Potassium < 3 Pramipexole Dihydrochloride (Pramipexole 1 Mg Tablet) 1 mg PO TID PRN PRN Reason: restless legs Last Admin: 04/19/21 20:08 Dose: 1 mg Documented by: Pregabalin (Pregabalin 25 Mg Capsule) 50 mg PO HS [facility] Last Admin: 04/19/21 20:08 Dose: 50 mg Documented by: Senna (Sennosides 1 Tablet) 2 tab PO DAILYP PRN PRN Reason: Constipation Sodium Chloride (0.9 % Sodium Chloride 10 Ml Syringe) 10 ml IV Q8 [facility] Last Admin: 04/20/21 05:31 Dose: 10 ml Documented by: Tiotropium [place] (Tiotropium [place] 18 Mcg Inhalant) 18 mcg INH DAILY [facility] Last Admin: 04/19/21 09:54 Dose: Not Given Documented by: Tramadol HCl (Tramadol 50 Mg Tablet) 50 mg PO TID PRN; Protocol PRN Reason: Pain Last Admin: 04/19/21 20:08 Dose: 50 mg Documented by: A/P Narrative A/P Narrative: A: *PNA, right side: -leukocytosis slowly improving, elevated PCT/CRP -SC w/GPC, strep Ur Ag / Myco *Sepsis w/hypotension(resolved in ED with IVF bolus): improving *UTI (GNB): *Encephalopathy: 2/2 hypoxia -Improved *Acute hypoxic respiratory failure: -now on room air *FLAVIA on CKD IV: -improving *Anemia, chronic: -7.8<7.2<8.7 *COPD (not on home O2, but will be getting at night): *JERMAN on CPAP: In process of getting home O2 for night *Obesity: *HTN: *GERD: *Depression: *Chronic neck/back pain *RLS: P: -Rocephin/azithromycin, pending SC/BC/UC, mrsa screen neg -IS/Acapella, prn nebs -Wean O2 as able -f/u CXR today -home cpap -hold home ACEI for FLAVIA and hypotension -hold torsemide for flavia -pt/ot -ppx: lovenox / home ppi full code Time Spent With Patient Time: Total time spent is greater than 50% in coordination of care (as documented) at patient's floor/unit and/or counseling patient: QUALITY VTE Deep Vein Thrombosis/Pulmonary Embolism Present on Admission: No
[2021-04-20] MEDS: PANTOPRAZOLE 40 MG TABLET PO SCH (08:03)
[2021-04-20] MEDS: FLUTICASONE FUROATE VILANTEROL INH SCH (09:07)
[2021-04-20] MEDS: FLUoxetine HCL 10 MG CAPSULE PO SCH (09:07)
[2021-04-20] MEDS: cefTRIAXone 2 GM in DEXTROSE 5% IN WATER 50 ML IV SCH (09:07)
[2021-04-20] MEDS: ASPIRIN 81 MG TAB.CHEW PO SCH (09:07)
[2021-04-20] MEDS: BACLOFEN 10 MG TABLET PO SCH (09:07)
[2021-04-20] MEDS: HEPARIN 5,000 UNIT/ML VIAL SQ SCH ×2 (09:07→21:56)
--- NOTE | 2021-04-20 09:26 | XRay Report ---
HISTORY: Follow-up right-sided pneumonia FINDINGS: A small consolidating infiltrate is present posteriorly and medially in the right lower lobe. Associated with this is a very small right-sided pleural effusion. A more subtle streaky infiltrate is present laterally in the right mid thorax. The infiltrates have not changed significantly. The volume of pleural fluid has increased a small amount. The left lung is clear. The heart size is normal. No adenopathy is detected. IMPRESSION: Persistent mild right lower lobe pneumonia with associated small pleural effusion Interpreted and Authenticated by: Suhas Adames 04/20/21
[2021-04-20] MEDS: AZITHROMYCIN 500 MG in DEXTROSE 5% IN WATER 250 ML IV SCH (09:49)
--- NOTE | 2021-04-20 10:15 | EKG ---
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
--- NOTE | 2021-04-20 10:38 | Discharge Summary ---
Discharge Provider Provider Patient information: Note initiated : 04/20/21 at 10:36 am Service Date, if different from initiated Date: [] Patient: Savanah Rubio 85 y/o F admitted on 04/18/21 for Shortness of breath. Chief Complaint: [] Date of admission: 04/18/21 16:40 Discharge date: 04/21/21 Primary care physician: Kayla Bello Consults: 04/18/21 Consult to Physician [CONS] Stat Comment: Consulting Provider: Jung Pack Reason For Exam: Physician to Consult 04/18/21 14:25 Consult to Physician [CONS] Stat Comment: Consulting Provider: Jung Pack Reason For Exam: Physician to Consult Discharge Meds Discharge Medications Home Medications acetaminophen 325 mg tablet (Tylenol) 650 mg PO Q4H PRN 08/28/20 [History Confirmed 04/18/21 Last Taken Unknown] aspirin 81 mg chewable tablet 81 mg PO QDAY 08/28/20 [History Confirmed 04/18/21 Last Taken 04/18/21 09:00] baclofen 10 mg tablet 10 mg PO QDAY 08/28/20 [History Confirmed 04/18/21 Last Taken 04/18/21 09:00] fluoxetine 10 mg tablet 10 mg PO QDAY 08/28/20 [History Confirmed 04/18/21 Last Taken 04/18/21 09:00] multivitamin (Daily Multi-Vitamin) 1 tab PO QAM 08/28/20 [History Confirmed 04/18/21 Last Taken 04/18/21 09:00] pramipexole 1 mg tablet 1 mg PO TID PRN 08/28/20 [History Confirmed 04/18/21 Last Taken 04/17/21 21:00] pregabalin 50 mg capsule (Lyrica) 50 mg PO HS 08/28/20 [History Confirmed 04/18/21 Last Taken 04/17/21 21:00] tramadol 50 mg tablet 50 mg PO TID PRN 08/28/20 [History Confirmed 04/18/21 Last Taken 04/18/21 09:00] fluticasone furoate 100 mcg-vilanterol 25 mcg/dose inhalation powder (Breo Ellipta) 1 ea INHALATION DAILY 04/18/21 [History Confirmed 04/18/21 Last Taken 04/18/21 09:00] tiotropium bromide 18 mcg capsule with inhalation device (Spiriva with HandiHaler) 18 mcg INHALATION DAILY 04/18/21 [History Confirmed 04/18/21 Last Taken 04/18/21 09:00] torsemide 20 mg tablet 20 mg PO DAILY 04/18/21 [History Confirmed 04/18/21 Last Taken 04/18/21 09:00] levofloxacin 750 mg tablet 750 mg PO Q24H #2 tab 04/20/21 [Rx Last Taken Unknown] pantoprazole 40 mg tablet,delayed release (Protonix) 40 mg PO QDAY #60 tab 04/21/21 [Rx Last Taken Unknown] COURSE Hospital Course Hospital course: Interval history: History of present illness: Ms. Rubio is a 85 year old F Who resides at [facility] was brought in from the facility because she was confused, also report of productive cough over the last 2 3 days. Per notes it was brown sputum but per patient who is now mentally more clear she states it was bloody mucus. She does report some shortness of breath with past couple days. Does report chills as well. She does have a history of obstructive sleep apnea and uses CPAP and is working on getting oxygen at night as well. Recent received a Covid booster. Covid and flu negative in the ED. Troponin 0 0.11, patient denies chest pain she does have acute on chronic CKD. Per discussion with the ED physician no EKG changes. Suspect secondary to demand but pending follow-up troponin before admission. She was found to be hypoxic in the low 80s on admit, she was hypotensive. She received several liters of IV fluid and supplemental oxygen with improvement in vital signs and her mentation. Antibiotic started in the ED. 04/19 States she slept all right but then complained that she needs better sleep. She has had diarrhea x2, mild cough today, some shortness of breath with pleuritic right-sided chest pain. 04/20 Patient feeling better today. On room air. White blood cell count slowly improving, creatinine improved. Procalcitonin now starting to improve. Occasional cough. Awaiting final sputum culture 04/21 Patient feeling better again. On room air cough much improved. No notable shortness of breath at rest. Hemoglobin dropped to 7.1. She does report loose dark stools. Per old notes she did have gastritis on endoscopy at [place] and is supposed to been on a PPI but I do not see that on her home med list. Rectal exam yielded light brown stool no gross blood, however the fecal occult blood test was faintly positive. She likely has a very slow bleed or likely some gastritis that had been found earlier in the year and she is not on a PPI. FOBT faintly positive. Sputum with MSSA. *Lisinopril held upon discharge due to low blood pressure, follow-up with PCP monitor blood pressure twice daily A: *PNA (MSSA), right side: *Sepsis w/hypotension(resolved in ED with IVF bolus): resolved *UTI (e. 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 Campos *Anemia, chronic (h/o blood transfusion outpt, h/o gastritis) & ORALIA: supposed to be on ppi -rectal exam FOBT faintly positive, stool light brown - likely mild gastritis *COPD (not on home O2, but will be getting at night): *JERMAN on CPAP: In process of getting home O2 for night *Obesity: *HTN: *GERD: *Depression: *Chronic neck/back pain *RLS: *MCI: per [facility] notes Discharge diagnosis: Pneumonia UTI sepsis encephalopathy acute hypoxic respite failure acute kid Secondary discharge diagnosis: Chronic anemia COPD obstructive sleep apnea obesity hypertension GERD depression chronic pain RLS gastritis Time Spent with Patient Time attestation: Total time spent providing and/or coordinating discharge services: Time spent: Greater than 30 minutes EXAM Constitutional Vitals: Temp Pulse Resp BP Pulse Ox 97 F 88 17 95/49 93 04/20/21 06:51 04/20/21 06:51 04/20/21 06:51 04/20/21 09:28 04/20/21 06:51 Discharge Data Data Completed and Pending Labs on day of discharge: Labs from last 24 hours 04/20/21 04/20/21 04/20/21 05:20 05:20 05:20 WBC 17.5 H RBC 2.60 L Hgb 7.8 L Hct 25.9 L MCV 99.6 MCH 30.0 MCHC 30.1 L RDW 14.9 H Plt Count 255 MPV 9.8 Neut % (Auto) 85.0 H Lymph % (Auto) 9.2 L [place] % (Auto) 5.4 Eos % (Auto) 0.3 Baso % (Auto) 0.1 Lymph # (Auto) 1.61 [place] # (Auto) 0.94 H Eos # (Auto) 0.05 Baso # (Auto) 0.02 Absolute Neutrophils 14.83 H Sodium 138 Potassium 5.0 Chloride 108 Carbon Dioxide 19 L Anion Gap 11.0 BUN 44 H Creatinine 1.6 H GFR Calculation 29 Glucose 76 Uric Acid 9.4 H Calcium 8.4 L Phosphorus 3.2 Magnesium 2.5 Total Bilirubin < 0.2 Direct Bilirubin < 0.2 GGT 26 AST 36 H ALT 32 Alkaline Phosphatase 97 Lactate Dehydrogenase 223 C-Reactive Protein 28.30 H Total Protein 6.9 Albumin 2.8 L Globulin 4.1 H Albumin/Globulin Ratio 0.7 L Triglycerides 171 H Procalcitonin 1.02 H Mycoplasma pneumon IgG Mycoplasma pneumon IgM Ur Strep pneumoniae Ag 04/19/21 04/19/21 04/18/21 14:38 06:05 12:50 WBC RBC Hgb 7.3 L Hct 23.0 L MCV MCH MCHC RDW Plt Count MPV Neut % (Auto) Lymph % (Auto) [place] % (Auto) Eos % (Auto) Baso % (Auto) Lymph # (Auto) [place] # (Auto) Eos # (Auto) Baso # (Auto) Absolute Neutrophils Sodium Potassium Chloride Carbon Dioxide Anion Gap BUN Creatinine GFR Calculation Glucose Uric Acid Calcium Phosphorus Magnesium Total Bilirubin Direct Bilirubin GGT AST ALT Alkaline Phosphatase Lactate Dehydrogenase C-Reactive Protein Total Protein Albumin Globulin Albumin/Globulin Ratio Triglycerides Procalcitonin Mycoplasma pneumon IgG Pending Mycoplasma pneumon IgM Pending Ur Strep pneumoniae Ag Negative Preliminary micro results at discharge 04/18/21 12:50 Urine Culture - Preliminary Urine - Clean Void Mid-Stream Gram negative bacillus 04/18/21 12:58 Blood Culture - Preliminary Blood 04/18/21 12:05 Blood Culture - Preliminary Blood 04/19/21 03:28 Gram Stain - Preliminary Sputum source - Expectorated Discharge Plan Patient/Caregiver Discharge Instructions Activity: increase activity as tolerated Diet: Regular Diet Activity Restrictions/Additional Instructions: *Lisinopril held upon discharge due to low blood pressure, follow-up with PCP monitor blood pressure twice daily. Follow-up with GI for guaiac positive stool, suspect gastritis 3 to 14 days. Prescriptions: New levofloxacin 750 mg tablet 750 mg PO Q24H Qty: 2 0RF Rx Instructions: start on 04/22/2021 pantoprazole [Protonix] 40 mg tablet,delayed release (DR/EC) 40 mg PO QDAY Qty: 60 0RF Continued acetaminophen [Tylenol] 325 mg Tablet 650 mg PO Q4H PRN (Reason: pain/elevated temp) 0RF multivitamin [Daily Multi-Vitamin] Tablet 1 tab PO QAM 0RF pramipexole 1 mg Tablet 1 mg PO TID PRN (Reason: restless legs) 0RF fluoxetine 10 mg Tablet 10 mg PO QDAY 0RF tramadol 50 mg Tablet 50 mg PO TID PRN (Reason: Pain) 0RF Rx Instructions: 1-2 tabs every 6 hours PRN baclofen 10 mg Tablet 10 mg PO QDAY 0RF aspirin 81 mg Tablet,Chewable 81 mg PO QDAY 0RF pregabalin [Lyrica] 50 mg Capsule 50 mg PO HS 0RF torsemide 20 mg tablet 20 mg PO DAILY 0RF Spiriva with HandiHaler 18 mcg capsule, w/inhalation device 18 mcg INHALATION DAILY 0RF Breo Ellipta 100-25 mcg/dose blister with device 1 ea INHALATION DAILY 0RF Discontinued lisinopril 10 mg Tablet 10 mg PO QDAY 0RF Other Ambulatory Orders: Complete Blood Count (Routine) Timeframe: 3 Days Facility: [facility] - Location: Laboratory Ordered By: Jung Pack Follow Up Plan Follow up with: Kayla Bello ARNP [Primary Care Provider] - 04/30/21 11:30 am Patient Disposition: Xfer Assisted Living Facility Prognosis: Fair Overall status at discharge: patient is progressing back to baseline Discharge Orders: Discharge Order (Routine); Ordered 04/21/21 Ordered By: Jung Pack QUALITY VTE Deep Vein Thrombosis/Pulmonary Embolism Present on Admission: No
[2021-04-20] MEDS: TIOTROPIUM BROMIDE 18 MCG INHALANT INH SCH (12:17)
[2021-04-20] MEDS: traMADol 50 MG TABLET PO PRN (21:57)
[2021-04-20] MEDS: ONDANSETRON 4 MG/2 ML VIAL IV PRN (21:57)
[2021-04-20] MEDS: MELATONIN 3 MG TABLET PO SCH (21:57)
[2021-04-20] MEDS: PREGABALIN 25 MG CAPSULE PO SCH (21:58)
[2021-04-20] MEDS: PRAMIPEXOLE 1 MG TABLET PO PRN (21:58)
[2021-04-21] MEDS: 0.9 % SODIUM CHLORIDE 10 ML SYRINGE IV SCH (05:06)
[2021-04-21 06:57] LABS: Basophils # (Auto) 0.02 K/mcL (0.00-0.30); Basophils % (Auto) 0.1 % (0.0-2.0); Eosinophils % (Auto) 0.7 % (0.0-7.0); Hematocrit 23.2 % (34.1-44.9); Hemoglobin 7.1 g/dL (11.2-15.7); Lymphocytes % (Auto) 7.6 % (15.5-49.0); Mean Cell Volume 97.9 fL (80.0-100.0); Mean Corpuscular HGB Conc 30.6 g/dL (31.0-36.0); Mean Platelet Volume 9.4 fL (7.4-10.4); Monocytes # (Auto) 0.78 K/mcL (0.10-0.90); Monocytes % (Auto) 5.4 % (1.0-12.0); Neutrophils % (Auto) 86.2 % (38.0-78.0); Platelet Count 256 K/mcL (140-440); RBC 2.37 M/mcL (3.59-5.38); WBC 14.5 K/mcL (4.5-11.0)
[2021-04-21 07:22] LABS: ALT/SGPT 34 U/L (<40); AST/SGOT 30 U/L (<32); Albumin 2.6 gm/dL (3.2-5.2); Albumin/Globulin Ratio 0.6 (1.0-2.3); Alkaline Phosphatase 145 U/L (39-117); Bilirubin,Direct < 0.2 mg/dL (0-0.3); Bilirubin,Total < 0.2 mg/dL (0.1-1.0); Blood Urea Nitrogen 33 mg/dL (8-23); Calcium 8.7 mg/dL (8.6-10.4); Carbon Dioxide 18 mmol/L (22-30); Chloride 108 mmol/L (96-108); Globulin 4.1 gm/dL (2.2-3.7); Glomerular Filtration Rate 37; Glucose 88 mg/dL (70-105); Lactate Dehydrogenase 259 U/L (135-225); Triglycerides 143 mg/dL (<150); Uric Acid 8.1 mg/dL (2.5-8.0)
[2021-04-21] MEDS ORDERED: 0.9 % SODIUM CHLORIDE 250 ML IV SCH (07:30)
--- NOTE | 2021-04-21 07:34 | Internal Med Progress Note ---
SUBJECTIVE Subjective Patient information: Note initiated : 04/21/21 at 7:25 am Service Date, if different from initiated Date: [] Patient: Savanah Rubio a 85 y/o F admitted on 04/18/21 for Shortness of breath. Chief Complaint: [] Interval history: History of present illness: Ms. Rubio is a 85 year old F Who resides at [facility] was brought in from the facility because she was confused, also report of productive cough over the last 2 3 days. Per notes it was brown sputum but per patient who is now mentally more clear she states it was bloody mucus. She does report some shortness of breath with past couple days. Does report chills as well. She does have a history of obstructive sleep apnea and uses CPAP and is working on getting oxygen at night as well. Recent received a Covid booster. Covid and flu negative in the ED. Troponin 0 0.11, patient denies chest pain she does have acute on chronic CKD. Per discussion with the ED physician no EKG changes. Suspect secondary to demand but pending follow-up troponin before admission. She was found to be hypoxic in the low 80s on admit, she was hypotensive. She received several liters of IV fluid and supplemental oxygen with improvement in vital signs and her mentation. Antibiotic started in the ED. 04/19 States she slept all right but then complained that she needs better sleep. She has had diarrhea x2, mild cough today, some shortness of breath with pleuritic right-sided chest pain. 04/20 Patient feeling better today. On room air. White blood cell count slowly improving, creatinine improved. Procalcitonin now starting to improve. Occasional cough. Awaiting final sputum culture 04/21 Patient feeling better again. On room air cough much improved. No notable shortness of breath at rest. Hemoglobin dropped to 7.1. She does report loose dark stools. Per old notes she did have gastritis on endoscopy at [place] and is supposed to been on a PPI but I do not see that on her home med list. Rectal exam yielded light brown stool no gross blood, however the fecal occult blood test was faintly positive. She likely has a very slow bleed or likely some gastritis that had been found earlier in the year and she is not on a PPI. Review of Systems: denies headache/fever/chills/nausea/vomiting/chest or abdominal pain/diarrhea. Otherwise see above. Constitutional Vitals: Vital Signs Temp Pulse Resp BP Pulse Ox 97.7 F 92 H 24 H 112/61 93 04/21/21 04:15 04/21/21 04:15 04/21/21 04:15 04/21/21 04:15 04/21/21 04:15 Period Temp Pulse Resp BP Sys/Travis Pulse Ox Last 24 Hr 97.7 F-98.8 F 54-92 16-24 95-113/49-61 92-99 Intake and Output 04/20/21 04/21/21 04/21/21 21:59 05:59 13:59 Intake Total 800 50 Output Total 0 Balance 800 50 Weight 96.162 kg Intake & Output: Intake & Output 04/20/21 04/21/21 04/21/21 21:59 05:59 13:59 Intake Total 800 50 Output Total 0 Balance 800 50 Weight 96.162 kg Intake: Oral 800 50 Output: Void Amount 0 # of times incontinent of urine 0 Other: Meal Lunch Percent of Meal Consumed 100% Feeding Ability Independent # Voids 4 # Bowel Movements 1 Exam: General: Alert, Awake, No acute Distress, obese Eyes/N/T: EOMI, Head/Neck: neck supple, CV: RRR, 1/6 SM, Pulm: Right side rhonchi improved, no wheezing Abd: soft, nontender, +BS x4 Ext: no clubbing/cyanosis, trace b/l LE edema Neuro: Alert, no focal deficits, moves all extremities, Skin: warm/dry RECTAL Exam: no gross blood, stool light brown OBJ DATA Labs CBC & Chem 7: 04/21/21 05:31 04/21/21 05:30 Labs: Abnormal Lab Results 04/21/21 04/21/21 04/20/21 05:31 05:30 05:20 WBC 14.5 H RBC 2.37 L Hgb 7.1 L Hct 23.2 L MCHC 30.6 L RDW 15.0 H Neut % (Auto) 86.2 H Lymph % (Auto) 7.6 L Lymph # (Auto) 1.10 L [place] # (Auto) Absolute Neutrophils 12.52 H RBC Morphology Anisocytosis Potassium Carbon Dioxide 18 L 19 L BUN 33 H 44 H Creatinine 1.3 H 1.6 H Uric Acid 8.1 H 9.4 H Calcium 8.4 L Magnesium AST 36 H Alkaline Phosphatase 145 H Lactate Dehydrogenase 259 H Troponin T C-Reactive Protein 28.30 H NT-Pro-B Natriuret Pep Albumin 2.6 L 2.8 L Globulin 4.1 H 4.1 H Albumin/Globulin Ratio 0.6 L 0.7 L Triglycerides 171 H Procalcitonin Urine Appearance Urine Nitrate Ur Leukocyte Esterase Urine WBC Urine Bacteria Hyaline Casts Urine Mucus 04/20/21 04/20/21 04/19/21 05:20 05:20 14:38 WBC 17.5 H RBC 2.60 L Hgb 7.8 L 7.3 L Hct 25.9 L 23.0 L MCHC 30.1 L RDW 14.9 H Neut % (Auto) 85.0 H Lymph % (Auto) 9.2 L Lymph # (Auto) [place] # (Auto) 0.94 H Absolute Neutrophils 14.83 H RBC Morphology Anisocytosis Potassium Carbon Dioxide BUN Creatinine Uric Acid Calcium Magnesium AST Alkaline Phosphatase Lactate Dehydrogenase Troponin T C-Reactive Protein NT-Pro-B Natriuret Pep Albumin Globulin Albumin/Globulin Ratio Triglycerides Procalcitonin 1.02 H Urine Appearance Urine Nitrate Ur Leukocyte Esterase Urine WBC Urine Bacteria Hyaline Casts Urine Mucus 04/19/21 04/19/21 04/19/21 06:09 06:09 06:09 WBC 20.3 H RBC 2.39 L Hgb 7.2 L Hct 23.5 L MCHC 30.6 L RDW 14.7 H Neut % (Auto) Lymph % (Auto) Lymph # (Auto) [place] # (Auto) Absolute Neutrophils RBC Morphology Abnormal A Anisocytosis 1+ A Potassium Carbon Dioxide 19 L BUN 65 H Creatinine 2.1 H Uric Acid 10.3 H Calcium 8.2 L Magnesium 2.6 H AST 34 H Alkaline Phosphatase Lactate Dehydrogenase Troponin T C-Reactive Protein NT-Pro-B Natriuret Pep Albumin 2.5 L Globulin 3.8 H Albumin/Globulin Ratio 0.7 L Triglycerides Procalcitonin 1.58 H Urine Appearance Urine Nitrate Ur Leukocyte Esterase Urine WBC Urine Bacteria Hyaline Casts Urine Mucus 04/19/21 04/18/21 04/18/21 06:09 14:38 12:50 WBC RBC Hgb Hct MCHC RDW Neut % (Auto) Lymph % (Auto) Lymph # (Auto) [place] # (Auto) Absolute Neutrophils RBC Morphology Anisocytosis Potassium Carbon Dioxide BUN Creatinine Uric Acid Calcium Magnesium AST Alkaline Phosphatase Lactate Dehydrogenase Troponin T 0.10 H* C-Reactive Protein 32.20 H NT-Pro-B Natriuret Pep Albumin Globulin Albumin/Globulin Ratio Triglycerides Procalcitonin Urine Appearance Hazy A Urine Nitrate Pos A Ur Leukocyte Esterase 25 A Urine WBC 8 H Urine Bacteria Many A Hyaline Casts 3 H Urine Mucus Few A 04/18/21 04/18/21 04/18/21 11:38 11:38 11:38 WBC 21.4 H RBC 2.79 L Hgb 8.7 L Hct 26.4 L MCHC RDW Neut % (Auto) 88.1 H Lymph % (Auto) 4.2 L Lymph # (Auto) 0.89 L [place] # (Auto) 1.62 H Absolute Neutrophils 18.84 H RBC Morphology Anisocytosis Potassium 5.2 H Carbon Dioxide 20 L BUN 83 H Creatinine 3.1 H Uric Acid Calcium Magnesium AST 42 H Alkaline Phosphatase Lactate Dehydrogenase Troponin T 0.11 H* C-Reactive Protein NT-Pro-B Natriuret Pep 2223.0 H Albumin 3.1 L Globulin 4.3 H Albumin/Globulin Ratio 0.7 L Triglycerides Procalcitonin Urine Appearance Urine Nitrate Ur Leukocyte Esterase Urine WBC Urine Bacteria Hyaline Casts Urine Mucus 04/18/21 04/18/21 11:33 11:33 WBC RBC Hgb Hct MCHC RDW Neut % (Auto) Lymph % (Auto) Lymph # (Auto) [place] # (Auto) Absolute Neutrophils RBC Morphology Anisocytosis Potassium Carbon Dioxide BUN Creatinine Uric Acid Calcium Magnesium AST Alkaline Phosphatase Lactate Dehydrogenase Troponin T C-Reactive Protein 27.80 H NT-Pro-B Natriuret Pep Albumin Globulin Albumin/Globulin Ratio Triglycerides Procalcitonin 1.18 H Urine Appearance Urine Nitrate Ur Leukocyte Esterase Urine WBC Urine Bacteria Hyaline Casts Urine Mucus Meds: Medications Acetaminophen (Acetaminophen 325 Mg Tablet) 650 mg PO Q6HP PRN; Protocol PRN Reason: Per Pain Protocol/Fever > 101 Aspirin (Aspirin 81 Mg Tab.Chew) 81 mg PO QDAY [facility] Last Admin: 04/20/21 09:07 Dose: 81 mg Documented by: Baclofen (Baclofen 10 Mg Tablet) 10 mg PO QDAY [facility] Last Admin: 04/20/21 09:07 Dose: 10 mg Documented by: Diphenhydramine HCl (Diphenhydramine 25 Mg Capsule) 25 mg PO HSP PRN PRN Reason: Insomnia Fluoxetine HCl (Fluoxetine Hcl 10 Mg Capsule) 10 mg PO DAILY [facility] Last Admin: 04/20/21 09:07 Dose: 10 mg Documented by: Heparin Sodium (Porcine) (Heparin 5,000 Unit/Ml Vial) 5,000 unit SQ Q12 [facility] Last Admin: 04/20/21 21:56 Dose: 5,000 unit Documented by: Potassium Chloride 40 meq/ (Dextrose) 520 mls @ 130 mls/hr IV UD PRN PRN Reason: Potassium < 3 Magnesium Sulfate (Magnesium Sulfate) 2 gm in 50 mls @ 50 mls/hr IV UD PRN PRN Reason: Magnesium </= 1.6 Ceftriaxone Sodium 2 gm/ (Dextrose) 50 mls @ 100 mls/hr IV Q24H [facility]; Protocol Last Infusion: 04/20/21 09:40 Dose: Infused Documented by: Melatonin (Melatonin 3 Mg Tablet) 3 mg PO QHS [facility] Last Admin: 04/20/21 21:57 Dose: 3 mg Documented by: Ondansetron HCl (Ondansetron 4 Mg/2 Ml Vial) 4 mg IV Q4HP PRN PRN Reason: Nausea And Vomiting Last Admin: 04/20/21 21:57 Dose: 4 mg Documented by: Pantoprazole Sodium (Pantoprazole 40 Mg Tablet) 40 mg PO QAMAC [facility] Last Admin: 04/20/21 08:03 Dose: 40 mg Documented by: Fluticasone Furoate- Vilanterol [Breo Ellipta] 100 Mcg Inhaler 1 dose INH DAILY [facility] Last Admin: 04/20/21 09:07 Dose: Not Given Documented by: Polyethylene Glycol (Polyethylene Glycol 3350 17 Gm Packet) 17 gm PO DAILYP PRN PRN Reason: Constipation Potassium Chloride (Potassium Chloride 20 Meq Tablet) 40 meq PO UD PRN PRN Reason: Potssium is 3-3.5 Potassium Chloride (Potassium Chloride 20 Meq Tablet) 40 meq PO UD PRN PRN Reason: Potassium < 3 Pramipexole Dihydrochloride (Pramipexole 1 Mg Tablet) 1 mg PO TID PRN PRN Reason: restless legs Last Admin: 04/20/21 21:58 Dose: 1 mg Documented by: Pregabalin (Pregabalin 25 Mg Capsule) 50 mg PO HS [facility] Last Admin: 04/20/21 21:58 Dose: 50 mg Documented by: Senna (Sennosides 1 Tablet) 2 tab PO DAILYP PRN PRN Reason: Constipation Sodium Chloride (0.9 % Sodium Chloride 10 Ml Syringe) 10 ml IV Q8 [facility] Last Admin: 04/21/21 05:06 Dose: 10 ml Documented by: Tiotropium [place] (Tiotropium [place] 18 Mcg Inhalant) 18 mcg INH DAILY [facility] Last Admin: 04/20/21 12:17 Dose: Not Given Documented by: Tramadol HCl (Tramadol 50 Mg Tablet) 50 mg PO TID PRN; Protocol PRN Reason: Pain Last Admin: 04/20/21 21:57 Dose: 50 mg Documented by: A/P Narrative A/P Narrative: A: *PNA (Staph, likely MSSA), right side: -leukocytosis improving, elevated PCT/CRP on admit -SC w/GPC, strep Ur Ag / Myco *Sepsis w/hypotension(resolved in ED with IVF bolus): improving *UTI (e. 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 Campos -improving *Anemia, chronic (h/o blood transfusion outpt, h/o gastritis) & ORALIA: supposed to be on ppi -7.1<7.8<7.2<8.7 -rectal exam FOBT positive, stool light brown - likely slow bleed *COPD (not on home O2, but will be getting at night): *JERMAN on CPAP: In process of getting home O2 for night *Obesity: *HTN: *GERD: *Depression: *Chronic neck/back pain *RLS: *MCI: per [facility] notes P: -Rocephin/azithromycin, pending SC/BC/UC, mrsa screen neg -IS/Acapella, prn nebs -Wean O2 as able -anemia w/u -f/u with GI and f/u H&H outpt -1prbc, ppi -home cpap -hold home ACEI for FLAVIA and hypotension -hold torsemide for flavia -pt/ot -ppx: lovenox full code Time Spent With Patient Time: Total time spent is greater than 50% in coordination of care (as documented) at patient's floor/unit and/or counseling patient: QUALITY VTE Deep Vein Thrombosis/Pulmonary Embolism Present on Admission: No
[2021-04-21] MEDS: PANTOPRAZOLE 40 MG TABLET PO SCH (07:43)
[2021-04-21] MEDS: BACLOFEN 10 MG TABLET PO SCH (08:03)
[2021-04-21] MEDS: FLUoxetine HCL 10 MG CAPSULE PO SCH (08:03)
[2021-04-21 08:28] LABS: Retic Absolute 0.04 M/mcL (0.02-0.10)
[2021-04-21] MEDS ORDERED: IRON POLYSACCHARIDE COMPLEX 150 MG CAPSULE PO SCH (09:00)
[2021-04-21 09:07] LABS: Ferritin 325.2 ng/mL (30.0-400.0)
[2021-04-21 09:14] LABS: Folate 14.8 ng/mL (4.2-19.9)
[2021-04-21] MEDS: cefTRIAXone 2 GM in DEXTROSE 5% IN WATER 50 ML IV SCH (09:51)
[2021-04-21] MEDS: ASPIRIN 81 MG TAB.CHEW PO SCH (09:58)
[2021-04-21] MEDS: HEPARIN 5,000 UNIT/ML VIAL SQ SCH (09:58)
[2021-04-21] MEDS: TIOTROPIUM BROMIDE 18 MCG INHALANT INH SCH (09:59)
[2021-04-21] MEDS: FLUTICASONE FUROATE VILANTEROL INH SCH (09:59)
[2021-04-21] MEDS ORDERED: PANTOPRAZOLE 40 MG TABLET PO SCH (17:00)
[2021-04-23 23:36] LABS: M. Pneumoniae IGG 1.53
== END 2021-04-21 16:20 | DRG 871 ==
LOC: ED 10:47 → MEDSUR 16:40
PROVIDERS: ADMIT Internal Medicine; ATTEND Internal Medicine

== ENCOUNTER 2022-08-25 09:52 | Inpatient (IN) ==
[2022-08-25] MEDS ORDERED: 0.9 % SODIUM CHLORIDE 1,000 ML IV ONE ×2 (10:06→10:35)
[2022-08-25] MEDS ORDERED: PIPERACILLIN SODIUM/TAZOBACTAM 4.5 GM in DEXTROSE 5% IN WATER 50 ML IV ONE (10:15)
--- NOTE | 2022-08-25 10:17 | Emergency Department Note ---
HPI General Chief complaint: Weakness Stated complaint: recent sepsis, weakness, frequent urination Time Seen by Provider: 08/25/22 10:06 Source: patient Mode of arrival: EMS Limitations: no limitations History of Present Illness HPI Narrative: Narrative: This is a pleasant 86-year-old female presents emergency department via EMS from [facility] living with weakness and shortness of breath. She was seen here [address] Albrecht and diagnosed with right-sided pneumonia and diverticulosis without diverticulitis. She has been taking azithromycin and Augmentin since then. She reports that she has not been getting any worse but she thought by now that she be feeling better. What brought her in initially was that she was having some right-sided abdominal pain but on further examination its really her right lower ribs. She also noticed that she was much more fatigued and felt short of breath on exertion when she was walking around. She has a history of sepsis and pneumonia. She is not a diabetic and otherwise immunocompromise that she knows of. She has not noticed fevers or chills or change in her sputum which she reports is a chronic cough with thick clear sputum. She has not been having any headaches sore throat rhinorrhea any other chest pain, nausea vomiting. She has been having diarrhea that seem to get worse when she started the antibiotics. She reports that she is unable to even hold it in and she has been having quite a few bouts of watery diarrhea. Her abdominal surgeries include cholecystectomy, umbilical hernia repair. No history of bowel obstruction. She denies dysuria urinary frequency or urgency. She has a history of CHF, COPD, chronic kidney disease. Patient reports that with her diarrhea she has not noticed any black or blood in her stool. Related Data Home Medications Medication Instructions Recorded Confirmed acetaminophen 325 mg tablet 650 mg PO Q4H PRN pain/elevated 08/28/20 08/23/22 (Tylenol) temp fluoxetine 10 mg tablet 10 mg PO QDAY 08/28/20 08/25/22 multivitamin (Daily Multi-Vitamin 1 tab PO QAM 08/28/20 08/25/22 tablet) pramipexole 1 mg tablet 1 mg PO TID PRN restless legs 08/28/20 08/23/22 tiotropium bromide 18 mcg capsule 18 mcg inhalation DAILY 04/18/21 06/17/22 with inhalation device (Spiriva with HandiHaler) baclofen 10 mg tablet 10 mg PO BID 12/16/21 08/25/22 torsemide 20 mg tablet 10 mg PO QDAY 12/16/21 08/25/22 hydrocodone 5 mg-acetaminophen 325 1 tab PO TID PRN Pain 05/13/22 08/25/22 mg tablet magnesium glycinate mg PO 05/13/22 06/17/22 pantoprazole 40 mg tablet,delayed 20 mg PO QDAY 05/13/22 08/25/22 release (Protonix) pregabalin 50 mg capsule 50 mg PO QDAY 08/25/22 08/25/22 Previous Rx's Medication Instructions Recorded Trelegy Ellipta 100 mcg-62.5 1 ea PO QDAY #60 ea 05/25/22 mcg-25 mcg powder for inhalation ([id number]) amoxicillin 875 mg-potassium 1 tab PO BID 7 days #14 tabs 08/23/22 clavulanate 125 mg tablet azithromycin 250 mg tablet See Rx Instructions PO .COMPLEX #6 08/23/22 tabs Allergies Allergy/AdvReac Type Severity Reaction Status Date / Time No Known Drug Allergies Allergy Verified 06/17/22 13:35 Review of Systems ROS ROS Narrative: Narrative: All systems ED: reviewed and negative except as stated. [facility] Narrative Patient History Narrative: Narrative: Medical/Surgical/Family History All Active Problems (Updated 08/25/22 @ 13:07 by Jesse Jain PA-C) Sepsis (Acute) Diverticulitis (Acute) Bacteremia (Acute) Diarrhea (Acute) Obstructive sleep apnea (Chronic) Cellulitis (Acute) Fall (Acute) Closed head injury (Acute) Abrasion (Acute) Complex sleep apnea syndrome (Chronic) GI hemorrhage (Acute) Anemia (Acute) Pulmonary fibrosis (Chronic) Rheumatoid factor positive (Acute) Nocturnal hypoxia (Chronic) Staphylococcal pneumonia (Acute) Snoring (Chronic) Cavitary lesion of lung (Chronic) Urinary urgency (Chronic) Incontinence (Chronic) Peripheral edema (Chronic) Frequent urination (Chronic) Leg pain (Chronic) Asymptomatic COVID-19 virus infection (Chronic) Aortic stenosis (Chronic) Muscle stiffness (Chronic) Muscle weakness (Chronic) Muscle cramps (Chronic) Anxiety (Chronic) Arthritis (Chronic) Focal neurological deficit (Chronic) Paresthesias (Chronic) Joint swelling (Chronic) Joint pain (Chronic) Malaise (Chronic) Fatigue (Chronic) Weakness (Chronic) Chronic joint pain (Acute) History of falling (Chronic) History of tobacco use (Chronic) penitentiary (current) use of aspirin (Chronic) BMI 37.0-37.9, adult (Chronic) Obesity (Chronic) Mixed incontinence urge and stress (Chronic) Depression (Chronic) Mild cognitive disorder (Chronic) Allergic rhinitis (Chronic) Hypersomnia (Chronic) Frequent falls (Chronic) Restless leg syndrome (Chronic) Edema (Chronic) Aortic stenosis, moderate (Chronic) Anemia due to blood loss (Chronic) Anemia in CKD (chronic kidney disease) (Chronic) 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 and stage 1 through stage 4 chronic kidney disease, or unspecified chronic kidney disease (Chronic) Knee joint pain (Chronic) Bilateral primary osteoarthritis of knee (Acute) Pain of both shoulder joints (Chronic) BMI 40.0-44.9, adult (Chronic) Morbid (severe) obesity due to excess calories (Chronic) Neck pain, chronic (Chronic) Back pain (Acute) SOB (shortness of breath) (Chronic) Chest pain (Chronic) Dyspnea (Chronic) COVID (Chronic) CHF (congestive heart failure) (Chronic) COPD (chronic obstructive pulmonary disease) (Chronic) Pneumonia (Chronic) Renal insufficiency (Chronic) Leukocytosis (Chronic) UTI (urinary tract infection) (Chronic) Fall (Chronic) Skin tear (Chronic) Medical History Allergic rhinitis Anemia due to blood loss Anemia in CKD (chronic kidney disease) Anxiety Aortic stenosis Aortic stenosis, moderate Arthritis Asymptomatic COVID-19 virus infection Back pain Bilateral primary osteoarthritis of knee BMI 37.0-37.9, adult BMI 40.0-44.9, adult Cavitary lesion of lung 04/09/2022has shrunk down to an 8 mm scar. It has been stable Chest pain CHF (congestive heart failure) Chronic joint pain Complex sleep apnea syndrome COPD (chronic obstructive pulmonary disease) hospitalization for copd exacerbation COVID Depression Dyspnea Edema Both legs Fall Fatigue Focal neurological deficit Frequent falls Frequent urination History of falling History of tobacco use Hypersomnia Hypertensive heart and chronic kidney disease with heart failure and stage 1 thr ough stage 4 chronic kidney disease, or unspecified chronic kidney disease Incontinence Joint pain Joint swelling Knee joint pain Bilateral Leg pain Leukocytosis penitentiary (current) use of aspirin Malaise Mild cognitive disorder Mixed incontinence urge and stress Morbid (severe) obesity due to excess calories Muscle cramps Muscle stiffness Muscle weakness Neck pain, chronic Nocturnal hypoxia Obesity Obstructive sleep apnea Pain of both shoulder joints Paresthesias Peripheral edema Pneumonia Pulmonary fibrosis Renal insufficiency Restless leg syndrome Rheumatoid factor positive Skin tear Snoring SOB (shortness of breath) Stage 4 chronic kidney disease Staphylococcal pneumonia Urinary urgency UTI (urinary tract infection) Weakness lower Ext Surgical History History of cholecystectomy History of hernia surgery Abdominal Family History Other No pertinent family history Social History Smoking Status: Current every day smoker Alcohol Intake Frequency: does not drink Substance Use: does not use Exam Narrative Narrative: General: Alert, in no acute distress Head: No trauma normocephalic Eyes: PERRLA, EOMs intact no scleral icterus or scleral injection Neck: Full range of motion, no midline tenderness ENT: Moist mucous membranes, uvula is midline. No sign of peritonsillar abscess or Irais's angina. Cardiovascular: Regular rate and rhythm Respiratory: There are bilateral lower lobe Rales worse on the right lower lung field, no tachypnea no respiratory distress patient points to her right lower chest where her pain is, it is not tender to palpation Abdomen pelvis: Abdomen is soft and nontender to palpation. There is no guarding no rebound tenderness. Negative Yeh sign. No tenderness over McBurney's point. Neuro: Patient is alert and oriented x3 Psych: Normal affect, normal mood Skin: Warm, no rash, normal color Back: Negative CVA tenderness bilaterally. General Limitations: no limitations Course Vital Signs Vital signs: Vital Signs Temperature 97.7 F 08/25/22 09:53 Pulse Rate 77 08/25/22 09:53 Respiratory Rate 20 08/25/22 09:53 Pulse Oximetry (%) 95 08/25/22 09:53 Oxygen Delivery Method Room Air 08/25/22 09:53 Temperature 97.7 F 08/25/22 10:05 Pulse Rate 80 08/25/22 13:16 Respiratory Rate 21 08/25/22 13:16 Blood Pressure 123/58 08/25/22 13:16 Pulse Oximetry (%) 92 08/25/22 13:16 Oxygen Delivery Method Room Air 08/25/22 10:05 MDM MDM Narrative Medical decision making narrative: Narrative: Differential diagnosis: Sepsis, bacteremia, pneumonia, diverticulitis, UTI Independent lab ordered and reviewed by me: I reviewed the blood cultures that were taken on the and both bottles grew out strep pneumo CBC significant improvement in white blood cell count from the which was 20.9-10.9 today, H&H is lower from 12.6/38.6 to 10.9/34.2. No left shift today. CMP slightly elevated BUN creatinine stable no electrolyte abnormalities Magnesium normal Noins-gc-drlm venous blood gas and lactic acid pH 7.3, lactic acid is 0.3 Repeat blood cultures x2 pending UA pending at admission C. difficile pending at admission Procalcitonin still quite elevated at 0.01 Chest x-rayInterval resolution of right basilar infiltrate and effusion Influenza and COVID are negative. Medications ordered: IV Zosyn ordered for coverage of the bacteremia of strep pneumoniae as well as a diverticulitis 2 L of IV normal saline ordered based on ideal body weight and 30 cc/kg equals 1920 cc of saline Tests considered but not ordered: I did consider getting a repeat CAT scan of her abdomen pelvis but she is currently not having any abdominal pain and her abdomen is soft and nondistended. She is having quite a bit of diarrhea which we will check C. difficile. Prescriptions given or considered: Discussed with other physicians/providers: Disposition decision making At 1237 the patient's blood pressure is 102/59. She is now on her second liter of normal saline. Patient does have a positive blood cultures from 3 days ago with strep pneumo. We have started her on Zosyn here in the emergency d epartment gotten repeat blood cultures. The patient's H&H is down from 3 days ago she has not noticed any black or blood in her stools she has been having quite a bit of diarrhea in the C. difficile is not back as she has not been able to give a sample yet nor is her UA been back yet. Her chest x-ray shows resolution of the pneumonia. Her COVID influenza is negative her electrolytes are normal. I am concerned with her positive blood cultures and soft blood pressures that here in the emergency department despite fluid resuscitation and have the patient feels that she has not been getting better at home.. I will attempt to admit her for bacteremia to Dr. Angel I spoke with Dr Angel who agreed to admit the patient for further evaluation and treatment of bacteremia and diarrhea. Lab Data 08/25/22 10:25 08/25/22 10:25 Labs: Lab Results 08/25/22 08/25/22 08/25/22 Range/Units 10:25 10:25 10:25 WBC 6.5 (4.5-11.0) K/mcL RBC 3.50 L (3.59-5.38) M/mcL Hgb 10.9 L (11.2-15.7) g/dL Hct 34.2 (34.1-44.9) % MCV 97.7 (80.0-100.0) fL MCH 31.1 (26.0-34.0) pg MCHC 31.9 (31.0-36.0) g/dL RDW 13.4 (11.5-14.5) % Plt Count 189 (140-440) K/mcL MPV 10.6 (8.8-12.5) fL Immature Gran % (Auto) 0.3 (0.0-0.5) % Neut % (Auto) 70.1 (38.0-78.0) % Lymph % (Auto) 16.6 (15.5-49.0) % [place] % (Auto) 10.2 (1.0-12.0) % Eos % (Auto) 2.3 (0.0-7.0) % Baso % (Auto) 0.5 (0.0-2.0) % Lymph # (Auto) 1.08 L (1.50-4.80) K/mcL [place] # (Auto) 0.66 (0.10-0.90) K/mcL Eos # (Auto) 0.15 (0.00-0.70) K/mcL Baso # (Auto) 0.03 (0.00-0.30) K/mcL Immature Gran # 0.02 (0.00-0.05) K/mcl Absolute Neutrophils 4.55 (1.80-8.00) K/mcL POC VBG pH (7.32-7.42) POC VBG pCO2 at Temp (41-51) POC VBG pO2 (25-40) POC VBG HCO3 (24-28) POC VBG Total CO2 (25-29) POC Venous O2 Sat (40-70) POC VBG Base Excess (-2-2) VBG Lactic Acid (0.5-2) Sodium 139 (133-145) mmol/L Potassium 4.3 (3.3-5.1) mmol/L Chloride 105 (96-108) mmol/L Carbon Dioxide 23 (22-30) mmol/L Anion Gap 11.0 (8.0-16.0) BUN 41 H (8-23) mg/dL Creatinine 1.4 H (0.6-1.1) mg/dL GFR Calculation 34 Glucose 90 (70-105) mg/dL Calcium 9.1 (8.6-10.4) mg/dL Magnesium 2.4 (1.6-2.5) mg/dL Total Bilirubin 0.3 (0.1-1.0) mg/dL AST 40 H (<32) U/L ALT 37 (<40) U/L Alkaline Phosphatase 90 (39-117) U/L Total Protein 7.0 (5.9-8.4) gm/dL Albumin 3.5 (3.2-5.2) gm/dL Globulin 3.5 (2.2-3.7) gm/dL Albumin/Globulin Ratio 1.0 (1.0-2.3) Procalcitonin 1.01 H (<0.10) ng/mL 08/25/22 Range/Units 10:27 WBC (4.5-11.0) K/mcL RBC (3.59-5.38) M/mcL Hgb (11.2-15.7) g/dL Hct (34.1-44.9) % MCV (80.0-100.0) fL MCH (26.0-34.0) pg MCHC (31.0-36.0) g/dL RDW (11.5-14.5) % Plt Count (140-440) K/mcL MPV (8.8-12.5) fL Immature Gran % (Auto) (0.0-0.5) % Neut % (Auto) (38.0-78.0) % Lymph % (Auto) (15.5-49.0) % [place] % (Auto) (1.0-12.0) % Eos % (Auto) (0.0-7.0) % Baso % (Auto) (0.0-2.0) % Lymph # (Auto) (1.50-4.80) K/mcL [place] # (Auto) (0.10-0.90) K/mcL Eos # (Auto) (0.00-0.70) K/mcL Baso # (Auto) (0.00-0.30) K/mcL Immature Gran # (0.00-0.05) K/mcl Absolute Neutrophils (1.80-8.00) K/mcL POC VBG pH 7.30 L (7.32-7.42) POC VBG pCO2 at Temp 52.9 H (41-51) POC VBG pO2 16 L (25-40) POC VBG HCO3 26.2 (24-28) POC VBG Total CO2 28.0 (25-29) POC Venous O2 Sat 18.0 L (40-70) POC VBG Base Excess 0 (-2-2) VBG Lactic Acid 0.3 L (0.5-2) Sodium (133-145) mmol/L Potassium (3.3-5.1) mmol/L Chloride (96-108) mmol/L Carbon Dioxide (22-30) mmol/L Anion Gap (8.0-16.0) BUN (8-23) mg/dL Creatinine (0.6-1.1) mg/dL GFR Calculation Glucose (70-105) mg/dL Calcium (8.6-10.4) mg/dL Magnesium (1.6-2.5) mg/dL Total Bilirubin (0.1-1.0) mg/dL AST (<32) U/L ALT (<40) U/L Alkaline Phosphatase (39-117) U/L Total Protein (5.9-8.4) gm/dL Albumin (3.2-5.2) gm/dL Globulin (2.2-3.7) gm/dL Albumin/Globulin Ratio (1.0-2.3) Procalcitonin (<0.10) ng/mL Discharge Plan Patient/Caregiver Discharge Instructions Pt seen by AURICULAR THERAPIST/PA only: Yes Clinical Impression: Pneumonia, Bacteremia, Diarrhea Patient Disposition: Xfer As Inpt ([facility]) Condition: Fair Follow up with: Dayanara Mccabe FNP [Primary Care Provider] - Prescriptions: No Action Trelegy Ellipta 100-62.5-25 mcg blister with device 1 ea PO QDAY Qty: 60 10RF Rx Instructions: Rinse, gargle and spit after use torsemide 20 mg tablet 10 mg PO QDAY hydrocodone-acetaminophen 5-325 mg tablet 1 tab PO TID PRN (Reason: Pain) magnesium glycinate 100 mg magnesium capsule PO pantoprazole [Protonix] 40 mg tablet,delayed release (DR/EC) 20 mg PO QDAY acetaminophen [Tylenol] 325 mg Tablet 650 mg PO Q4H PRN (Reason: pain/elevated temp) multivitamin [Daily Multi-Vitamin] Tablet 1 tab PO QAM pramipexole 1 mg Tablet 1 mg PO TID PRN (Reason: restless legs) fluoxetine 10 mg Tablet 10 mg PO QDAY baclofen 10 mg tablet 10 mg PO BID Spiriva with HandiHaler 18 mcg capsule, w/inhalation device 18 mcg INHALATION DAILY amoxicillin-pot clavulanate 875-125 mg tablet 1 tab PO BID 7 Days Qty: 14 0RF azithromycin 250 mg tablet See Rx Instructions .ROUTE .COMPLEX Qty: 6 0RF Rx Instructions: For 250 mg dose pack: take 500 mg today (day 1), then 250 mg for 4 days (days 2-5) pregabalin 50 mg capsule 50 mg PO QDAY
[2022-08-25 11:51] LABS: Basophils # (Auto) 0.03 K/mcL (0.00-0.30); Basophils % (Auto) 0.5 % (0.0-2.0); Eosinophils # (Auto) 0.15 K/mcL (0.00-0.70); Eosinophils % (Auto) 2.3 % (0.0-7.0); Hematocrit 34.2 % (34.1-44.9); Hemoglobin 10.9 g/dL (11.2-15.7); Lymphocytes # (Auto) 1.08 K/mcL (1.50-4.80); Lymphocytes % (Auto) 16.6 % (15.5-49.0); Mean Cell Volume 97.7 fL (80.0-100.0); Mean Corpuscular HGB Conc 31.9 g/dL (31.0-36.0); Mean Platelet Volume 10.6 fL (8.8-12.5); Monocytes # (Auto) 0.66 K/mcL (0.10-0.90); Monocytes % (Auto) 10.2 % (1.0-12.0); Neutrophils % (Auto) 70.1 % (38.0-78.0); Platelet Count 189 K/mcL (140-440); Red Cell Distribution Width 13.4 % (11.5-14.5); WBC 6.5 K/mcL (4.5-11.0)
--- NOTE | 2022-08-25 12:08 | XRay Report ---
CLINICAL INFORMATION: Cough and fever COMPARISON: 08/23/2022 TECHNIQUE: Portable FINDINGS: Mild cardiomegaly is unchanged. Mediastinum and pulmonary vasculature are normal. Right basilar infiltrate and effusion have resolved since previous exam. IMPRESSION: Interval resolution of right basilar infiltrate and effusion. Interpreted and Authenticated by: Bob Ellis 08/25/22
[2022-08-25 12:15] LABS: ALT/SGPT 37 U/L (<40); AST/SGOT 40 U/L (<32); Albumin 3.5 gm/dL (3.2-5.2); Alkaline Phosphatase 90 U/L (39-117); Bilirubin,Total 0.3 mg/dL (0.1-1.0); Blood Urea Nitrogen 41 mg/dL (8-23); Calcium 9.1 mg/dL (8.6-10.4); Carbon Dioxide 23 mmol/L (22-30); Chloride 105 mmol/L (96-108); Globulin 3.5 gm/dL (2.2-3.7); Glomerular Filtration Rate 34; Glucose 90 mg/dL (70-105)
--- NOTE | 2022-08-25 13:34 | Internal Med History&Physical ---
HPI History of Present Illness Patient information: Note initiated : 08/25/22 at 1:33 pm Service Date, if different from initiated Date: [] Patient: Savanah Rubio a 86 y/o F admitted on for recent sepsis, weakness, frequent urination. Chief Complaint: [general body weakness, RUQ abdominal pain, diarrhea] Chief complaint: general body weakness, RUQ abdominal pain, diarrhea History of present illness: Ms. Rubio is a 86 year old F history of obstructive sleep apnea, restless leg syndrome, anxiety/depressions, hypertensions with chronic kidney disease stage III, COPD, CHF, presented with 3-day history of general body weakness, diarrhea, and right upper quadrant abdominal pain. She presented to our ED 2 days ago for similar symptoms, and found with CT abdomen pelvis to have sigmoid diverticulosis without diverticulitis, as well as moderate right lower lobe pneumonia with small right pleural effusions. She was being discharged back to [facility] with prescriptions of Augmentin and azithromycin. She returned it today for worsening symptoms with right upper quadrant abdominal pain, sharp, severe, intermittent, ongoing diarrhea, and worsening general body weakness. She denies any fever chills or diaphoresis. She denies any nausea vomiting and she has good appetite. Blood culture obtained from her initial visit positive for strep pneumoniae in both sets. Soft blood pressure upon ED presentation today as low as 85 over 45 mmHg. Rest of the vital signs within normal limits. Blood pressure normalized now after fluid resuscitation's. Labs today significant for lack of leukocytosis with WBC 6.5. Lactic acid 0.3. Procalcitonin level 1.01. Repeat chest x-ray today showing interval resolution of right basilar infiltrate and effusions. Admission request is called for strep pneumoniae bacteremia. Constitutional Constitutional: Present weakness; Absent chills, excessive sweating, fatigue or fever(s) EENT Eyes: Absent blurry vision, change in vision, loss of vision or other visual disturbances Ears: Absent decreased hearing or tinnitus Nose, mouth and throat: Absent abnormal hearing, dry mouth, headache(s), nasal congestion or sore throat Cardiovascular Cardiovascular: Absent chest pain, chest pain at rest, edema, irregular heart rhythm or palpatations Respiratory Respiratory: Absent cough, dyspnea or wheezing Gastrointestinal Gastrointestinal: Present abdominal pain and diarrhea; Absent constipation, nausea or vomiting Musculoskeletal Musculoskeletal: Absent back pain, deformity, limited range of motion, muscle cramps, muscle weakness or numbness Integumentary Integumentary: Absent lesions, rash or wounds Neurological Neurological: Absent focal weakness, headache(s) or numbness Psychiatric Psychiatric: Absent anxiety, depression or hallucinations PFSH PFSH All Active Problems (Updated 08/25/22 @ 13:42 by Fer Angel MD) Right lower lobe pneumonia (Acute) Anxiety and depression (Acute) Bacteremia due to Streptococcus pneumoniae (Acute) Sepsis (Acute) Diverticulitis (Acute) Bacteremia (Acute) Diarrhea (Acute) Obstructive sleep apnea (Chronic) Cellulitis (Acute) Fall (Acute) Closed head injury (Acute) Abrasion (Acute) Complex sleep apnea syndrome (Chronic) GI hemorrhage (Acute) Anemia (Acute) Pulmonary fibrosis (Chronic) Rheumatoid factor positive (Acute) Nocturnal hypoxia (Chronic) Staphylococcal pneumonia (Acute) Snoring (Chronic) Cavitary lesion of lung (Chronic) Urinary urgency (Chronic) Incontinence (Chronic) Peripheral edema (Chronic) Frequent urination (Chronic) Leg pain (Chronic) Asymptomatic COVID-19 virus infection (Chronic) Aortic stenosis (Chronic) Muscle stiffness (Chronic) Muscle weakness (Chronic) Muscle cramps (Chronic) Anxiety (Chronic) Arthritis (Chronic) Focal neurological deficit (Chronic) Paresthesias (Chronic) Joint swelling (Chronic) Joint pain (Chronic) Malaise (Chronic) Fatigue (Chronic) Weakness (Chronic) Chronic joint pain (Acute) History of falling (Chronic) History 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 use (Chronic) 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 (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) BMI 37.0-37.9, adult (Chronic) Obesity (Chronic) Mixed incontinence urge and stress (Chronic) Depression (Chronic) Mild cognitive disorder (Chronic) Allergic rhinitis (Chronic) Hypersomnia (Chronic) Frequent falls (Chronic) Restless leg syndrome (Chronic) Edema (Chronic) Aortic stenosis, moderate (Chronic) Anemia due to blood loss (Chronic) Anemia in CKD (chronic kidney disease) (Chronic) 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 and stage 1 through stage 4 chronic kidney disease, or unspecified chronic kidney disease (Chronic) Knee joint pain (Chronic) Bilateral primary osteoarthritis of knee (Acute) Pain of both shoulder joints (Chronic) BMI 40.0-44.9, adult (Chronic) Morbid (severe) obesity due to excess calories (Chronic) Neck pain, chronic (Chronic) Back pain (Acute) SOB (shortness of breath) (Chronic) Chest pain (Chronic) Dyspnea (Chronic) COVID (Chronic) CHF (congestive heart failure) (Chronic) COPD (chronic obstructive pulmonary disease) (Chronic) Pneumonia (Chronic) Renal insufficiency (Chronic) Leukocytosis (Chronic) UTI (urinary tract infection) (Chronic) Fall (Chronic) Skin tear (Chronic) Medical History Allergic rhinitis Anemia due to blood loss Anemia in CKD (chronic kidney disease) Anxiety Aortic stenosis Aortic stenosis, moderate Arthritis Asymptomatic COVID-19 virus infection Back pain Bilateral primary osteoarthritis of knee BMI 37.0-37.9, adult BMI 40.0-44.9, adult Cavitary lesion of lung 04/09/2022has shrunk down to an 8 mm scar. It has been stable Chest pain CHF (congestive heart failure) Chronic joint pain Complex sleep apnea syndrome COPD (chronic obstructive pulmonary disease) hospitalization for copd exacerbation COVID Depression Dyspnea Edema Both legs Fall Fatigue Focal neurological deficit Frequent falls Frequent urination History of falling History of tobacco use Hypersomnia Hypertensive heart and chronic kidney disease with heart failure and stage 1 through stage 4 chronic kidney disease, or unspecified chronic kidney disease Incontinence Joint pain Joint swelling Knee joint pain Bilateral Leg pain Leukocytosis nursing home (current) use of aspirin Malaise Mild cognitive disorder Mixed incontinence urge and stress Morbid (severe) obesity due to excess calories Muscle cramps Muscle stiffness Muscle weakness Neck pain, chronic Nocturnal hypoxia Obesity Obstructive sleep apnea Pain of both shoulder joints Paresthesias Peripheral edema Pneumonia Pulmonary fibrosis Renal insufficiency Restless leg syndrome Rheumatoid factor positive Skin tear Snoring SOB (shortness of breath) Stage 4 chronic kidney disease Staphylococcal pneumonia Urinary urgency UTI (urinary tract infection) Weakness lower Ext Surgical History History of cholecystectomy History of hernia surgery Abdominal Family History Other No pertinent family history Social History marital status: occupational status: retired physical activity: none smoking status: Current every day smoker tobacco type: cigarettes per day: 5 pack-years: 75 alcohol intake frequency: does not drink substance use type: does not use MEDS/ALLERGIES Home Medications and Allergies Home Medications Medication Instructions Recorded Confirmed Type acetaminophen 325 mg tablet 650 mg PO Q4H PRN pain/elevated 08/28/20 08/23/22 History (Tylenol) temp fluoxetine 10 mg tablet 10 mg PO QDAY 08/28/20 08/25/22 History multivitamin (Daily Multi-Vitamin 1 tab PO QAM 08/28/20 08/25/22 History tablet) pramipexole 1 mg tablet 1 mg PO TID PRN restless legs 08/28/20 08/23/22 History tiotropium bromide 18 mcg capsule 18 mcg inhalation DAILY 04/18/21 06/17/22 History with inhalation device (Spiriva with HandiHaler) baclofen 10 mg tablet 10 mg PO BID 12/16/21 08/25/22 History torsemide 20 mg tablet 10 mg PO QDAY 12/16/21 08/25/22 History hydrocodone 5 mg-acetaminophen 325 1 tab PO TID PRN Pain 05/13/22 08/25/22 History mg tablet magnesium glycinate mg PO 05/13/22 06/17/22 History pantoprazole 40 mg tablet,delayed 20 mg PO QDAY 05/13/22 08/25/22 History release (Protonix) Trelegy Ellipta 100 mcg-62.5 1 ea PO QDAY #60 ea 05/25/22 08/25/22 Rx mcg-25 mcg powder for inhalation ([id number]) amoxicillin 875 mg-potassium 1 tab PO BID 7 days #14 tabs 08/23/22 08/25/22 Rx clavulanate 125 mg tablet azithromycin 250 mg tablet See Rx Instructions PO .COMPLEX #6 08/23/22 08/25/22 Rx tabs pregabalin 50 mg capsule 50 mg PO QDAY 08/25/22 08/25/22 History Allergies Allergy/AdvReac Type Severity Reaction Status Date / Time No Known Drug Allergies Allergy Verified 06/17/22 13:35 EXAM Constitutional Vitals: Temp Pulse Resp BP Pulse Ox O2 Del Method 36.5 C 80 21 123/58 92 Room Air 08/25/22 10:05 08/25/22 13:16 08/25/22 13:16 08/25/22 13:16 08/25/22 13:16 08/25/22 10:05 General appearance: cooperative and no acute distress Head Head exam: Present atraumatic and normocephalic Eye Eye exam: Present EOMI and PERRL ENT ENT exam: Present mucous membranes moist, normal exam and normal external ear exam Neck Neck exam: Present normal inspection; Absent lymphadenopathy, tenderness or thyromegaly Respiratory Respiratory exam: Absent accessory muscle use, respiratory distress or wheezes Cardiovascular Cardiovascular exam: Present normal rate and rhythm; Absent JVD GI/Abdominal GI/Abdominal exam: Present normal bowel sounds, soft and tenderness; Absent organomegaly Extremities Exam Extremities exam: Present full ROM, normal capillary refill and normal inspection; Absent tenderness Neurological Exam Neurological exam: Present alert, CN II-XII intact and oriented X3; Absent motor sensory deficit Psychiatric Psychiatric exam: Present normal affect and normal mood; Absent anxious or depressed Skin Skin exam: Present dry and intact DATA Data Completed and Pending Labs: Labs from last 24 hours 08/25/22 08/25/22 08/25/22 13:12 10:27 10:25 WBC RBC Hgb Hct MCV MCH MCHC RDW Plt Count MPV Immature Gran % (Auto) Neut % (Auto) Lymph % (Auto) [place] % (Auto) Eos % (Auto) Baso % (Auto) Lymph # (Auto) [place] # (Auto) Eos # (Auto) Baso # (Auto) Immature Gran # Absolute Neutrophils POC VBG pH 7.30 L POC VBG pCO2 at Temp 52.9 H POC VBG pO2 16 L POC VBG HCO3 26.2 POC VBG Total CO2 28.0 POC Venous O2 Sat 18.0 L POC VBG Base Excess 0 VBG Lactic Acid 0.3 L Sodium Potassium Chloride Carbon Dioxide Anion Gap BUN Creatinine GFR Calculation Glucose Calcium Magnesium Total Bilirubin AST ALT Alkaline Phosphatase Total Protein Albumin Globulin Albumin/Globulin Ratio Procalcitonin 1.01 H Urine Color Pending Urine Appearance Pending Urine pH Pending Ur Specific [place] Pending Urine Protein Pending Urine Glucose (UA) Pending Urine Ketones Pending Urine Occult Blood Pending Urine Nitrate Pending Urine Bilirubin Pending Urine Urobilinogen Pending Ur Leukocyte Esterase Pending 08/25/22 08/25/22 10:25 10:25 WBC 6.5 RBC 3.50 L Hgb 10.9 L Hct 34.2 MCV 97.7 MCH 31.1 MCHC 31.9 RDW 13.4 Plt Count 189 MPV 10.6 Immature Gran % (Auto) 0.3 Neut % (Auto) 70.1 Lymph % (Auto) 16.6 [place] % (Auto) 10.2 Eos % (Auto) 2.3 Baso % (Auto) 0.5 Lymph # (Auto) 1.08 L [place] # (Auto) 0.66 Eos # (Auto) 0.15 Baso # (Auto) 0.03 Immature Gran # 0.02 Absolute Neutrophils 4.55 POC VBG pH POC VBG pCO2 at Temp POC VBG pO2 POC VBG HCO3 POC VBG Total CO2 POC Venous O2 Sat POC VBG Base Excess VBG Lactic Acid Sodium 139 Potassium 4.3 Chloride 105 Carbon Dioxide 23 Anion Gap 11.0 BUN 41 H Creatinine 1.4 H GFR Calculation 34 Glucose 90 Calcium 9.1 Magnesium 2.4 Total Bilirubin 0.3 AST 40 H ALT 37 Alkaline Phosphatase 90 Total Protein 7.0 Albumin 3.5 Globulin 3.5 Albumin/Globulin Ratio 1.0 Procalcitonin Urine Color Urine Appearance Urine pH Ur Specific [place] Urine Protein Urine Glucose (UA) Urine Ketones Urine Occult Blood Urine Nitrate Urine Bilirubin Urine Urobilinogen Ur Leukocyte Esterase A/P Assessment and plan (1) Bacteremia due to Streptococcus pneumoniae: Status: Acute (2) Diarrhea: Status: Acute (3) Obstructive sleep apnea: Status: Chronic (4) Restless leg syndrome: Status: Chronic (5) Hypertensive heart and chronic kidney disease with heart failure and stage 1 through stage 4 chronic kidney disease, or unspecified chronic kidney disease: Status: Chronic (6) CHF (congestive heart failure): Status: Chronic (7) COPD (chronic obstructive pulmonary disease): Status: Chronic Comment: hospitalization for copd exacerbation Qualifiers: COPD type: chronic bronchitis Chronic bronchitis type: mucopurulent Qualified Code(s): J41.1 - Mucopurulent chronic bronchitis (8) Anxiety and depression: Status: Acute (9) Right lower lobe pneumonia: Status: Acute Narrative A/P Narrative: Assessment and Plans: 1. Strep pneumoniae bacteremia: Inpatient med surg Serial lactic acid Procalcitonin level Repeat blood cultures X2 on 08/25 cbc w/ auto diff in the morning to trend WBC s/p IV fluid resuscitation in the ED, to be followed by NS@75cc/hr Rocephin Physical therapy evaluation and treatment 2. Right lower lobe pneumonia: Repeat CXR showing interval resolution of infiltrates Cover with Rocephin and Zithromax anyway Supplemental oxygen therapy titrate to achieve spo2>=88% Respiratory panel 3. Diarrhea: C diff toxin PCR 4. Depression with anxiety: Fluoxetine 5. h/o COPD, stable: DuoNEB NEB PRN wheezing or shortness of breath Trelegy Ellipta Spiriva 6. h/o CHF: Holding Torsemide while giving IV fluid as part of the treatment of bacteremia, see #1 7. Restless leg syndrome: Pramipexole 8. Obstructive sleep apnea: CPAP at night while sleeping 9. Hypertension with chronic kidney disease III: Holding Torsemide while giving IV fluid as part of the treatment of bacteremia, see #1 Avoid nephrotoxic agents CMP in the morning to trend kidney functions GI ppx: PPI DVT ppx: Lovenox Code status: Full Prognosis: guarded Disposition: inpatient med surg Time Spent With Patient Time: Total time spent is greater than 50% in coordination of care (as documented) at patient's floor/unit and/or counseling patient: Initial: Total time with patient: 55 - 74 minutes
[2022-08-25 14:08] LABS: Appearance,Urine HAZY (Clear); Bilirubin,Urine Negative (Negative); Color,Urine YELLOW; Culture Indicated,Urine No; Glucose,Urine (UA) Negative (Negative); Ketones,Urine Negative (Negative); Leukocyte Esterase,Urine 25 /uL (Negative); Mucus,Urine FEW /hpf; Nitrate,Urine Negative (Negative); Protein,Urine Negative (Negative); Specific Gravity,Urine 1.016 (1.000-1.035); Urine Blood Negative (Negative); Urine RBC 1 /hpf (0-3); Urine Squamous Epithelial Cell < 1 /hpf (0-4); Urine WBC 2 /hpf (0-4); Urobilinogen,Urine Negative
[2022-08-25] MEDS ORDERED: morphine 4 MG/ML VIAL IV PRN (14:47)
[2022-08-25] MEDS ORDERED: traZODone HCL 50 MG TABLET PO PRN (14:47)
[2022-08-25] MEDS ORDERED: oxyCODONE IR 5 MG TABLET PO PRN (14:47)
[2022-08-25] MEDS ORDERED: ONDANSETRON 4 MG/2 ML VIAL IV PRN (14:47)
[2022-08-25] MEDS ORDERED: ACETAMINOPHEN 325 MG TABLET PO PRN (14:47)
[2022-08-25] MEDS: 0.9 % SODIUM CHLORIDE 1,000 ML IV SCH (14:50)
[2022-08-25] MEDS: 0.9 % SODIUM CHLORIDE 10 ML SYRINGE IV SCH ×2 (15:46→20:58)
[2022-08-25] MEDS: cefTRIAXone 2 GM in DEXTROSE 5% IN WATER 50 ML IV SCH (16:47)
[2022-08-25] MEDS: AZITHROMYCIN 500 MG in DEXTROSE 5% IN WATER 250 ML IV SCH (17:41)
[2022-08-25] MEDS: SENNOSIDES 1 TABLET PO SCH (20:58)
[2022-08-25] MEDS: BACLOFEN 10 MG TABLET PO SCH (20:58)
[2022-08-25] MEDS: DOCUSATE SODIUM 100 MG CAPSULE PO SCH (20:58)
[2022-08-25] MEDS: PRAMIPEXOLE 0.25 MG TABLET PO SCH (20:58)
[2022-08-26] MEDS: 0.9 % SODIUM CHLORIDE 1,000 ML IV SCH ×2 (04:56→20:19)
[2022-08-26] MEDS: 0.9 % SODIUM CHLORIDE 10 ML SYRINGE IV SCH ×3 (04:56→21:12)
[2022-08-26 06:47] LABS: Basophils # (Auto) 0.05 K/mcL (0.00-0.30); Basophils % (Auto) 0.7 % (0.0-2.0); Eosinophils # (Auto) 0.27 K/mcL (0.00-0.70); Eosinophils % (Auto) 3.5 % (0.0-7.0); Hematocrit 34.9 % (34.1-44.9); Hemoglobin 10.9 g/dL (11.2-15.7); Lymphocytes # (Auto) 1.68 K/mcL (1.50-4.80); Mean Cell Volume 100.3 fL (80.0-100.0); Mean Corpuscular HGB Conc 31.2 g/dL (31.0-36.0); Mean Platelet Volume 10.1 fL (8.8-12.5); Monocytes # (Auto) 0.75 K/mcL (0.10-0.90); Monocytes % (Auto) 9.8 % (1.0-12.0); Neutrophils % (Auto) 63.5 % (38.0-78.0); Platelet Count 193 K/mcL (140-440); RBC 3.48 M/mcL (3.59-5.38); Red Cell Distribution Width 13.5 % (11.5-14.5); WBC 7.6 K/mcL (4.5-11.0)
[2022-08-26 07:01] LABS: ALT/SGPT 30 U/L (<40); AST/SGOT 28 U/L (<32); Albumin 3.2 gm/dL (3.2-5.2); Albumin/Globulin Ratio 0.9 (1.0-2.3); Alkaline Phosphatase 100 U/L (39-117); Bilirubin,Total 0.2 mg/dL (0.1-1.0); Blood Urea Nitrogen 30 mg/dL (8-23); Calcium 8.5 mg/dL (8.6-10.4); Carbon Dioxide 25 mmol/L (22-30); Chloride 112 mmol/L (96-108); Globulin 3.5 gm/dL (2.2-3.7); Glomerular Filtration Rate 41; Glucose 76 mg/dL (70-105)
[2022-08-26] MEDS: PANTOPRAZOLE 40 MG TABLET PO SCH (07:38)
[2022-08-26] MEDS ORDERED: cefTRIAXone 2 GM VIAL ONE (09:31)
[2022-08-26] MEDS: cefTRIAXone 2 GM in DEXTROSE 5% IN WATER 50 ML IV SCH (09:32)
[2022-08-26] MEDS: DOCUSATE SODIUM 100 MG CAPSULE PO SCH ×2 (09:34→20:11)
[2022-08-26] MEDS: BACLOFEN 10 MG TABLET PO SCH ×2 (09:36→20:11)
[2022-08-26] MEDS: PREGABALIN 25 MG CAPSULE PO SCH (09:37)
[2022-08-26] MEDS: FLUoxetine HCL 10 MG CAPSULE PO SCH (09:41)
[2022-08-26] MEDS: MULTIVIT,THER IRON,CA,FA & MIN 1 TABLET PO SCH (09:42)
[2022-08-26] MEDS: ENOXAPARIN 40 MG/0.4 ML SYRINGE SQ SCH (09:42)
[2022-08-26] MEDS: Fluticasone-Umeclidin-Vilanter [Trelegy Ellipta] PO SCH (10:00)
[2022-08-26] MEDS: AZITHROMYCIN 500 MG in DEXTROSE 5% IN WATER 250 ML IV SCH (11:30)
[2022-08-26] MEDS ORDERED: POLYETHYLENE GLYCOL 3350 17 GM PACKET PO PRN (12:37)
[2022-08-26] MEDS ORDERED: MAGNESIUM HYDROXIDE 30 ML ORAL.SUSP PO PRN (12:37)
--- NOTE | 2022-08-26 12:47 | Internal Med Progress Note ---
SUBJECTIVE Subjective Patient information: Note initiated : 08/26/22 at 12:43 pm Service Date, if different from initiated Date: [] Patient: Savanah Rubio a 86 y/o F admitted on 08/25/22 for recent sepsis, weakness, frequent urination. Chief Complaint: [] Interval history: Ms. Rubio is a 86 year old F history of obstructive sleep apnea, restless leg syndrome, anxiety/depressions, hypertensions with chronic kidney disease stage III, COPD, CHF, presented with 3-day history of general body weakness, diarrhea, and right upper quadrant abdominal pain. She presented to our ED 2 days ago for similar symptoms, and found with CT abdomen pelvis to have sigmoid diverticulosis without diverticulitis, as well as moderate right lower lobe pneumonia with small right pleural effusions. She was being discharged back to [facility] with prescriptions of Augmentin and azithromycin. She returned it today for worsening symptoms with right upper quadrant abdominal pain, sharp, severe, intermittent, ongoing diarrhea, and worsening general body weakness. She denies any fever chills or diaphoresis. She denies any nausea vomiting and she has good appetite. Blood culture obtained from her initial visit positive for strep pneumoniae in both sets. Soft blood pressure upon ED presentation today as low as 85 over 45 mmHg. Rest of the vital signs within normal limits. Blood pressure normalized now after fluid resuscitation's. Labs today significant for lack of leukocytosis with WBC 6.5. Lactic acid 0.3. Procalcitonin level 1.01. Repeat chest x-ray today showing interval resolution of right basilar infiltrate and effusions. Admission request is called for strep pneumoniae bacteremia. 08/26: Afebrile overnight. WBC 7.6 this morning. Repeat blood culture no growth today. Respiratory panel all negative. Patient is on room air. Patient had a few small bowel movement overnight. She is still complaining of right upper quadrant moderate sharp abdominal pain. She has no nausea vomiting and she is able to tolerate oral intake. Differential diagnosis of abdominal pain right lower lobe pneumonia versus costochondritis versus constipations. We will continue antibiotics with Rocephin and azithromycin. We will continue IV fluid with normal saline at 75 cc/h. Continue to monitor culture results. We will offer stool softener and laxative with Colace, senna, milk of magnesia, and MiraLAX to promote bowel mo vement. We will continue to offer narcotics including morphine and [place] for pain control. Overall condition guarded. Stay in [facility]. Constitutional Vitals: Vital Signs Temp Pulse Resp BP Pulse Ox O2 Del Method 36.5 C 77 14 144/89 97 Room Air 08/26/22 12:00 08/26/22 12:00 08/26/22 12:00 08/26/22 12:00 08/26/22 12:00 08/26/22 12:00 Period Temp Pulse Resp BP Sys/Travis Pulse Ox O2 Del Method O2 Flow Rate Last 24 Hr 36.2 C-36.8 C 68-87 12-22 85-144/45-89 91-97 Room Air-Room Air Intake and Output 08/26/22 08/26/22 08/26/22 03:59 11:59 19:59 Intake Total 250 1530 Balance 250 1530 Weight 81.703 kg Intake & Output: Intake & Output 08/26/22 08/26/22 08/26/22 03:59 11:59 19:59 Intake Total 250 1530 Balance 250 1530 Weight 81.703 kg Intake: IV 250 1050 Sodium Chloride 0.9% 1,000 ml @ 1000 75 mls/hr IV .[id number] [facility] Rx#: [id number] Zithromax 500 mg In Dextrose 5% 250 in Water 250 ml @ 250 mls/hr IV Q24H [facility] Rx#:[id number] Rocephin 2 gm In Dextrose 5% in 50 Water 50 ml @ 100 mls/hr IV Q24H [facility] Rx#:[id number] Oral 480 Other: Stool Size Moderate Stool Color Brown Stool Consistency Loose # Voids 2 # Bowel Movements 2 Head Head exam: Present atraumatic and normal inspection Eye Eye exam: Present normal appearance ENT ENT exam: Present mucous membranes moist, normal exam and normal external ear exam Neck Neck exam: Present normal inspection Respiratory Respiratory exam: Present normal respiratory exam Cardiovascular Cardiovascular exam: Present normal rate and rhythm GI/Abdominal GI/Abdominal exam: Present normal bowel sounds and tenderness Back Exam Back exam: Present normal inspection Neurological Exam Neurological exam: Present alert and oriented X3 Skin Skin exam: Present intact and warm OBJ DATA Labs 08/26/22 05:49 08/26/22 05:49 Labs: Abnormal Lab Results 08/26/22 08/26/22 08/25/22 05:49 05:49 13:12 RBC 3.48 L Hgb 10.9 L MCV 100.3 H Lymph # (Auto) POC VBG pH POC VBG pCO2 at Temp POC VBG pO2 POC Venous O2 Sat VBG Lactic Acid Chloride 112 H Anion Gap 5.0 L BUN 30 H Creatinine 1.2 H Calcium 8.5 L AST Albumin/Globulin Ratio 0.9 L Procalcitonin Urine Appearance Hazy A Ur Leukocyte Esterase 25 A Urine Mucus Few A 08/25/22 08/25/22 08/25/22 10:27 10:25 10:25 RBC 3.50 L Hgb 10.9 L MCV Lymph # (Auto) 1.08 L POC VBG pH 7.30 L POC VBG pCO2 at Temp 52.9 H POC VBG pO2 16 L POC Venous O2 Sat 18.0 L VBG Lactic Acid 0.3 L Chloride Anion Gap BUN Creatinine Calcium AST Albumin/Globulin Ratio Procalcitonin 1.01 H Urine Appearance Ur Leukocyte Esterase Urine Mucus 08/25/22 10:25 RBC Hgb MCV Lymph # (Auto) POC VBG pH POC VBG pCO2 at Temp POC VBG pO2 POC Venous O2 Sat VBG Lactic Acid Chloride Anion Gap BUN 41 H Creatinine 1.4 H Calcium AST 40 H Albumin/Globulin Ratio Procalcitonin Urine Appearance Ur Leukocyte Esterase Urine Mucus Meds: Medications Acetaminophen (Acetaminophen 325 Mg Tablet) 650 mg PO Q6HP PRN; Protocol PRN Reason: Per Pain Protocol/Fever > 101 Hydrocodone Bitart/Acetaminophen (Hydrocodone/Apap 5/325mg Tablet) 1 tab PO TIDP PRN PRN Reason: Pain Albuterol/Ipratropium (Ipratropium/Albuterol 3 Ml Ampul.Neb) 3 ml NEB Q4HRT PRN PRN Reason: Wheezing Azithromycin (Azithromycin 250 Mg Tablet) 500 mg PO DAILY@1000 [facility] Stop: 08/27/22 16:00 Baclofen (Baclofen 10 Mg Tablet) 10 mg PO BID [facility] Last Admin: 08/26/22 09:36 Dose: 10 mg Docusate Sodium (Docusate Sodium 100 Mg Capsule) 100 mg PO BID [facility] Last Admin: 08/26/22 09:34 Dose: 100 mg Enoxaparin Sodium (Enoxaparin 40 Mg/0.4 Ml Syringe) 40 mg SQ DAILY [facility] Last Admin: 08/26/22 09:42 Dose: 40 mg Fluoxetine HCl (Fluoxetine Hcl 10 Mg Capsule) 10 mg PO QDAY [facility] Last Admin: 08/26/22 09:41 Dose: 10 mg Sodium Chloride (Sodium Chloride 0.9%) 1,000 mls @ 75 mls/hr IV .[id number] [facility] Last Admin: 08/26/22 04:56 Dose: 75 mls/hr Ceftriaxone Sodium 2 gm/ (Dextrose) 50 mls @ 100 mls/hr IV Q24H [facility]; Protocol Last Infusion: 08/26/22 10:02 Dose: Infused Azithromycin 500 mg/ Dextrose 250 mls @ 250 mls/hr IV Q24H [facility]; Protocol Stop: 08/26/22 13:00 Last Admin: 08/26/22 11:30 Dose: 250 mls/hr Iron Carb/Multivit/[place]/Folic Acid (Multivit,Ther Iron,Ca,Fa & Min 1 Tablet) [facility] Last Admin: 08/26/22 09:42 Dose: 1 tab Magnesium Hydroxide (Magnesium Hydroxide 30 Ml Oral.Susp) 30 ml PO BIDP PRN PRN Reason: Constipation Morphine Sulfate (Morphine 4 Mg/Ml Vial) 2 mg IV Q4HP PRN; Protocol PRN Reason: Per Pain Protocol Ondansetron HCl (Ondansetron 4 Mg/2 Ml Vial) 4 mg IV Q6HP PRN PRN Reason: Nausea And Vomiting Oxycodone HCl (Oxycodone Ir 5 Mg Tablet) 5 mg PO Q4HP PRN; Protocol PRN Reason: Per Pain Protocol Pantoprazole Sodium (Pantoprazole 40 Mg Tablet) [facility] Last Admin: 08/26/22 07:38 Dose: 40 mg Fluticasone- Umeclidin-Vilanter [ Trelegy Ellipta] 1 dose PO QDAY [facility] Last Admin: 08/26/22 10:00 Dose: Not Given Polyethylene Glycol (Polyethylene Glycol 3350 17 Gm Packet) 17 gm PO DAILYP PRN PRN Reason: Constipation Pramipexole Dihydrochloride (Pramipexole 0.25 Mg Tablet) 0.5 mg PO [facility] Last Admin: 08/25/22 20:58 Dose: 0.5 mg Pregabalin (Pregabalin 25 Mg Capsule) 50 mg PO QDAY [facility] Last Admin: 08/26/22 09:37 Dose: 50 mg Senna (Sennosides 1 Tablet) 2 tab PO HS [facility] Last Admin: 08/25/22 20:58 Dose: Not Given Sodium Chloride (0.9 % Sodium Chloride 10 Ml Syringe) 10 ml IV Q8 [facility] Last Admin: 08/26/22 04:56 Dose: Not Given Trazodone HCl (Trazodone Hcl 50 Mg Tablet) 25 mg PO HSP PRN PRN Reason: Insomnia A/P Assessment and plan (1) Bacteremia due to Streptococcus pneumoniae: Status: Acute (2) Diarrhea: Status: Acute (3) Obstructive sleep apnea: Status: Chronic (4) Restless leg syndrome: Status: Chronic (5) Hypertensive heart and chronic kidney disease with heart failure and stage 1 through stage 4 chronic kidney disease, or unspecified chronic kidney disease: Status: Chronic (6) CHF (congestive heart failure): Status: Chronic (7) COPD (chronic obstructive pulmonary disease): Status: Chronic Comment: hospitalization for copd exacerbation Qualifiers: COPD type: chronic bronchitis Chronic bronchitis type: mucopurulent Qualified Code(s): J41.1 - Mucopurulent chronic bronchitis (8) Anxiety and depression: Status: Acute (9) Right lower lobe pneumonia: Status: Acute Narrative A/P Narrative: Assessment and Plans: 1. Strep pneumoniae bacteremia: Inpatient med surg Serial lactic acid Procalcitonin level Repeat blood cultures X2 on 08/25, no growth to date cbc w/ auto diff in the morning to trend WBC s/p IV fluid resuscitation in the ED, to be followed by NS@75cc/hr Rocephin Physical therapy evaluation and treatment 2. Right lower lobe pneumonia: Repeat CXR showing interval resolution of infiltrates Cover with Rocephin and Zithromax Supplemental oxygen therapy titrate to achieve spo2>=88% Respiratory panel 3. Diarrhea: C diff toxin PCR 4. Depression with anxiety: Fluoxetine 5. h/o COPD, stable: DuoNEB NEB PRN wheezing or shortness of breath Trelegy Ellipta Spiriva 6. h/o CHF: Holding Torsemide while giving IV fluid as part of the treatment of bacteremia, see #1 7. Restless leg syndrome: Pramipexole 8. Obstructive sleep apnea: CPAP at night while sleeping 9. Hypertension with chronic kidney disease III: Holding Torsemide while giving IV fluid as part of the treatment of bacteremia, see #1 Avoid nephrotoxic agents CMP in the morning to trend kidney functions 10. RUQ abdominal pain: DDx: right lower lobe pneumonia versus costochondritis versus constipations Rocephin and Zithromax for pneumonia Colace Senna Milk of Magnesia Miralax for constipation [place] Morphine for pain control GI ppx: PPI DVT ppx: Lovenox Code status: Full Prognosis: guarded Disposition: inpatient med surg Time Spent With Patient Time: Total time spent is greater than 50% in coordination of care (as documented) at patient's floor/unit and/or counseling patient: Subsequent: Total time with patient: 35 - 49 minutes QUALITY VTE Deep Vein Thrombosis/Pulmonary Embolism Present on Admission: No
[2022-08-26] MEDS: PRAMIPEXOLE 0.25 MG TABLET PO SCH (20:11)
[2022-08-26] MEDS: SENNOSIDES 1 TABLET PO SCH (20:11)
[2022-08-27] MEDS: 0.9 % SODIUM CHLORIDE 10 ML SYRINGE IV SCH ×3 (06:36→20:10)
[2022-08-27 07:01] LABS: Basophils # (Auto) 0.03 K/mcL (0.00-0.30); Basophils % (Auto) 0.5 % (0.0-2.0); Eosinophils # (Auto) 0.23 K/mcL (0.00-0.70); Eosinophils % (Auto) 3.6 % (0.0-7.0); Hematocrit 31.2 % (34.1-44.9); Hemoglobin 9.8 g/dL (11.2-15.7); Lymphocytes # (Auto) 1.11 K/mcL (1.50-4.80); Lymphocytes % (Auto) 17.2 % (15.5-49.0); Mean Cell Volume 99.4 fL (80.0-100.0); Mean Corpuscular HGB Conc 31.4 g/dL (31.0-36.0); Mean Platelet Volume 10.3 fL (8.8-12.5); Monocytes # (Auto) 0.72 K/mcL (0.10-0.90); Monocytes % (Auto) 11.2 % (1.0-12.0); Neutrophils % (Auto) 66.6 % (38.0-78.0); Platelet Count 183 K/mcL (140-440); RBC 3.14 M/mcL (3.59-5.38); Red Cell Distribution Width 13.3 % (11.5-14.5); WBC 6.5 K/mcL (4.5-11.0)
[2022-08-27 07:37] LABS: ALT/SGPT 22 U/L (<40); AST/SGOT 22 U/L (<32); Alkaline Phosphatase 83 U/L (39-117); Bilirubin,Total < 0.2 mg/dL (0.1-1.0); Blood Urea Nitrogen 20 mg/dL (8-23); Calcium 8.4 mg/dL (8.6-10.4); Carbon Dioxide 22 mmol/L (22-30); Chloride 114 mmol/L (96-108); Globulin 2.9 gm/dL (2.2-3.7); Glomerular Filtration Rate 51; Glucose 102 mg/dL (70-105)
[2022-08-27] MEDS: PANTOPRAZOLE 40 MG TABLET PO SCH (08:02)
[2022-08-27] MEDS: ENOXAPARIN 40 MG/0.4 ML SYRINGE SQ SCH (09:30)
[2022-08-27] MEDS: PREGABALIN 25 MG CAPSULE PO SCH (09:31)
[2022-08-27] MEDS: DOCUSATE SODIUM 100 MG CAPSULE PO SCH ×2 (09:31→20:44)
[2022-08-27] MEDS: FLUoxetine HCL 10 MG CAPSULE PO SCH (09:31)
[2022-08-27] MEDS: BACLOFEN 10 MG TABLET PO SCH ×2 (09:31→20:44)
[2022-08-27] MEDS: MULTIVIT,THER IRON,CA,FA & MIN 1 TABLET PO SCH (09:31)
[2022-08-27] MEDS: cefTRIAXone 2 GM in DEXTROSE 5% IN WATER 50 ML IV SCH (09:31)
[2022-08-27] MEDS: 0.9 % SODIUM CHLORIDE 1,000 ML IV SCH ×2 (09:32→20:44)
[2022-08-27] MEDS: Fluticasone-Umeclidin-Vilanter [Trelegy Ellipta] PO SCH (09:36)
[2022-08-27] MEDS ORDERED: AZITHROMYCIN 250 MG TABLET PO SCH (10:00)
--- NOTE | 2022-08-27 11:46 | Internal Med Progress Note ---
SUBJECTIVE Subjective Patient information: Note initiated : 08/27/22 at 11:41 am Service Date, if different from initiated Date: [] Patient: Savanah Rubio a 86 y/o F admitted on 08/25/22 for recent sepsis, weakness, frequent urination. Chief Complaint: [] Interval history: Ms. Rubio is a 86 year old F history of obstructive sleep apnea, restless leg syndrome, anxiety/depressions, hypertensions with chronic kidney disease stage III, COPD, CHF, presented with 3-day history of general body weakness, diarrhea, and right upper quadrant abdominal pain. She presented to our ED 2 days ago for similar symptoms, and found with CT abdomen pelvis to have sigmoid diverticulosis without diverticulitis, as well as moderate right lower lobe pneumonia with small right pleural effusions. She was being discharged back to [facility] with prescriptions of Augmentin and azithromycin. She returned it today for worsening symptoms with right upper quadrant abdominal pain, sharp, severe, intermittent, ongoing diarrhea, and worsening general body weakness. She denies any fever chills or diaphoresis. She denies any nausea vomiting and she has good appetite. Blood culture obtained from her initial visit positive for strep pneumoniae in both sets. Soft blood pressure upon ED presentation today as low as 85 over 45 mmHg. Rest of the vital signs within normal limits. Blood pressure normalized now after fluid resuscitation's. Labs today significant for lack of leukocytosis with WBC 6.5. Lactic acid 0.3. Procalcitonin level 1.01. Repeat chest x-ray today showing interval resolution of right basilar infiltrate and effusions. Admission request is called for strep pneumoniae bacteremia. 08/26: Afebrile overnight. WBC 7.6 this morning. Repeat blood culture no growth today. Respiratory panel all negative. Patient is on room air. Patient had a few small bowel movement overnight. She is still complaining of right upper quadrant moderate sharp abdominal pain. She has no nausea vomiting and she is able to tolerate oral intake. Differential diagnosis of abdominal pain right lower lobe pneumonia versus costochondritis versus constipations. We will continue antibiotics with Rocephin and azithromycin. We will continue IV fluid with normal saline at 75 cc/h. Continue to monitor culture results. We will offer stool softener and laxative with Colace, senna, milk of magnesia, and MiraLAX to promote bowel mo vement. We will continue to offer narcotics including morphine and [place] for pain control. Overall condition guarded. Stay in [facility]. 08/27: Afebrile overnight. WBC 6.5. Repeat blood culture no growth today. Patient had bowel movement overnight. She is on 2 L/min nasal cannula oxygen. She is complaining of mild shortness of breath. She is coming of cough with pink sputum. She is still complaining of moderate to severe right upper quadrant abdominal pain. Continue antibiotics with Rocephin and azithromycin while monitoring for repeat blood culture result. Continue normal saline running at 75 cc/h. Supplemental oxygen therapy. Incentive spirometry while awake. Continue stool softener and laxative Colace senna milk of magnesia and MiraLAX as needed to promote bowel movement. Overall condition guarded. Stay in [facility]. Constitutional Vitals: Vital Signs Temp Pulse Resp BP Pulse Ox O2 Del Method O2 Flow Rate 36.7 C 88 18 142/72 98 Nasal Cannula 2 08/27/22 08:00 08/27/22 08:00 08/27/22 08:00 08/27/22 08:00 08/27/22 08:00 08/27/22 08:00 08/27/22 08:00 Period Temp Pulse Resp BP Sys/Travis Pulse Ox O2 Del Method O2 Flow Rate Last 24 Hr 36.1 C-36.7 C 74-95 14-22 131-157/67-97 93-98 Nasal Cannula- Room Air 2-2 Intake and Output 08/26/22 08/27/22 08/27/22 19:59 03:59 11:59 Intake Total 600 1500 991 Output Total 876 650 450 Balance -276 850 541 Weight 81.329 kg Intake & Output: Intake & Output 08/26/22 08/27/22 08/27/22 19:59 03:59 11:59 Intake Total 600 1500 991 Output Total 876 650 450 Balance -276 850 541 Weight 81.329 kg Intake: IV 250 1000 991 Sodium Chloride 0.9% 1,000 ml @ 1000 991 75 mls/hr IV .[id number] [facility] Rx#: [id number] Zithromax 500 mg In Dextrose 5% 250 in Water 250 ml @ 250 mls/hr IV Q24H [facility] Rx#:[id number] Oral 350 500 Output: Void Amount 875 650 450 # of times incontinent of urine 1 Other: Meal Breakfast Percent of Meal Consumed 100% Urine Appearance Clear Clear Clear Urine Color Bright Yellow Yellow Yellow Urine Odor Normal Stool Size Moderate Smear Small Stool Color Brown Brown Brown Stool Consistency Soft Soft Soft Loose # Voids 1 # Bowel Movements 1 1 1 # of times incontinent of 1 Bowels Head Head exam: Present atraumatic and normal inspection Eye Eye exam: Present normal appearance ENT ENT exam: Present mucous membranes moist, normal exam and normal external ear exam Additional comments: Nasal cannula in place Neck Neck exam: Present normal inspection Respiratory Respiratory exam: Present rhonchi and wheezes Cardiovascular Cardiovascular exam: Present normal rate and rhythm GI/Abdominal GI/Abdominal exam: Present normal bowel sounds Back Exam Back exam: Present normal inspection Neurological Exam Neurological exam: Present alert and oriented X3 Skin Skin exam: Present intact and warm OBJ DATA Labs 08/27/22 05:00 08/27/22 05:00 Labs: Abnormal Lab Results 08/27/22 08/27/22 08/26/22 05:00 05:00 05:49 RBC 3.14 L Hgb 9.8 L Hct 31.2 L MCV Immature Gran % (Auto) 0.9 H Lymph # (Auto) 1.11 L Immature Gran # 0.06 H POC VBG pH POC VBG pCO2 at Temp POC VBG pO2 POC Venous O2 Sat VBG Lactic Acid Chloride 114 H 112 H Anion Gap 6.0 L 5.0 L BUN 30 H Creatinine 1.2 H Calcium 8.4 L 8.5 L AST Albumin 3.0 L Albumin/Globulin Ratio 0.9 L Procalcitonin Urine Appearance Ur Leukocyte Esterase Urine Mucus 08/26/22 08/25/22 08/25/22 05:49 13:12 10:27 RBC 3.48 L Hgb 10.9 L Hct MCV 100.3 H Immature Gran % (Auto) Lymph # (Auto) Immature Gran # POC VBG pH 7.30 L POC VBG pCO2 at Temp 52.9 H POC VBG pO2 16 L POC Venous O2 Sat 18.0 L VBG Lactic Acid 0.3 L Chloride Anion Gap BUN Creatinine Calcium AST Albumin Albumin/Globulin Ratio Procalcitonin Urine Appearance Hazy A Ur Leukocyte Esterase 25 A Urine Mucus Few A 08/25/22 08/25/22 08/25/22 10:25 10:25 10:25 RBC 3.50 L Hgb 10.9 L Hct MCV Immature Gran % (Auto) Lymph # (Auto) 1.08 L Immature Gran # POC VBG pH POC VBG pCO2 at Temp POC VBG pO2 POC Venous O2 Sat VBG Lactic Acid Chloride Anion Gap BUN 41 H Creatinine 1.4 H Calcium AST 40 H Albumin Albumin/Globulin Ratio Procalcitonin 1.01 H Urine Appearance Ur Leukocyte Esterase Urine Mucus Meds: Medications Acetaminophen (Acetaminophen 325 Mg Tablet) 650 mg PO Q6HP PRN; Protocol PRN Reason: Per Pain Protocol/Fever > 101 Hydrocodone Bitart/Acetaminophen (Hydrocodone/Apap 5/325mg Tablet) 1 tab PO TIDP PRN PRN Reason: Pain Albuterol/Ipratropium (Ipratropium/Albuterol 3 Ml Ampul.Neb) 3 ml NEB Q4HRT PRN PRN Reason: Wheezing Azithromycin (Azithromycin 250 Mg Tablet) 500 mg PO DAILY@1000 [facility] Stop: 08/27/22 16:00 Last Admin: 08/27/22 09:31 Dose: 500 mg Baclofen (Baclofen 10 Mg Tablet) 10 mg PO BID [facility] Last Admin: 08/27/22 09:31 Dose: 10 mg Docusate Sodium (Docusate Sodium 100 Mg Capsule) 100 mg PO BID [facility] Last Admin: 08/27/22 09:31 Dose: 100 mg Enoxaparin Sodium (Enoxaparin 40 Mg/0.4 Ml Syringe) 40 mg SQ DAILY [facility] Last Admin: 08/27/22 09:30 Dose: 40 mg Fluoxetine HCl (Fluoxetine Hcl 10 Mg Capsule) 10 mg PO QDAY [facility] Last Admin: 08/27/22 09:31 Dose: 10 mg Sodium Chloride (Sodium Chloride 0.9%) 1,000 mls @ 75 mls/hr IV .[id number] [facility] Last Admin: 08/27/22 09:32 Dose: 75 mls/hr Ceftriaxone Sodium 2 gm/ (Dextrose) 50 mls @ 100 mls/hr IV Q24H [facility]; Protocol Last Admin: 08/27/22 09:31 Dose: 100 mls/hr Iron Carb/Multivit/[employer]/Folic Acid (Multivit,Ther Iron,Ca,Fa & Min 1 Tablet) 1 tab PO QAM [facility] Last Admin: 08/27/22 09:31 Dose: 1 tab Magnesium Hydroxide (Magnesium Hydroxide 30 Ml Oral.Susp) 30 ml PO BIDP PRN PRN Reason: Constipation Morphine Sulfate (Morphine 4 Mg/Ml Vial) 2 mg IV Q4HP PRN; Protocol PRN Reason: Per Pain Protocol Ondansetron HCl (Ondansetron 4 Mg/2 Ml Vial) 4 mg IV Q6HP PRN PRN Reason: Nausea And Vomiting Oxycodone HCl (Oxycodone Ir 5 Mg Tablet) 5 mg PO Q4HP PRN; Protocol PRN Reason: Per Pain Protocol Pantoprazole Sodium ([facility]ole 40 Mg Tablet) [facility] Last Admin: 08/27/22 08:02 Dose: 40 mg Fluticasone- Umeclidin-Vilanter [ Trelegy Ellipta] 1 dose PO QDAY [facility] Last Admin: 08/27/22 09:36 Dose: Not Given Polyethylene Glycol (Polyethylene Glycol 3350 17 Gm Packet) 17 gm PO DAILYP PRN PRN Reason: Constipation Pramipexole Dihydrochloride (Pramipexole 0.25 Mg Tablet) 0.5 mg PO [facility] Last Admin: 08/26/22 20:11 Dose: 0.5 mg Pregabalin (Pregabalin 25 Mg Capsule) 50 mg PO QDAY [facility] Last Admin: 08/27/22 09:31 Dose: 50 mg Senna (Sennosides 1 Tablet) 2 tab PO [facility] Last Admin: 08/26/22 20:11 Dose: Not Given Sodium Chloride (0.9 % Sodium Chloride 10 Ml Syringe) 10 ml IV Q8 [facility] Last Admin: 08/27/22 06:36 Dose: Not Given Trazodone HCl (Trazodone Hcl 50 Mg Tablet) 25 mg PO HSP PRN PRN Reason: Insomnia A/P Assessment and plan (1) Bacteremia due to Streptococcus pneumoniae: Status: Acute (2) Diarrhea: Status: Acute (3) Obstructive sleep apnea: Status: Chronic (4) Restless leg syndrome: Status: Chronic (5) Hypertensive heart and chronic kidney disease with heart failure and stage 1 through stage 4 chronic kidney disease, or unspecified chronic kidney disease: Status: Chronic (6) CHF (congestive heart failure): Status: Chronic (7) COPD (chronic obstructive pulmonary disease): Status: Chronic Comment: hospitalization for copd exacerbation Qualifiers: COPD type: chronic bronchitis Chronic bronchitis type: mucopurulent Qualified Code(s): J41.1 - Mucopurulent chronic bronchitis (8) Anxiety and depression: Status: Acute (9) Right lower lobe pneumonia: Status: Acute Narrative A/P Narrative: Assessment and Plans: 1. Strep pneumoniae bacteremia: Inpatient med surg Serial lactic acid Procalcitonin level Repeat blood cultures X2 on 08/25, no growth to date cbc w/ auto diff in the morning to trend WBC s/p IV fluid resuscitation in the ED, to be followed by NS@75cc/hr Rocephin Physical therapy evaluation and treatment 2. Right lower lobe pneumonia: Repeat CXR showing interval resolution of infiltrates Cover with Rocephin and Zithromax Supplemental oxygen therapy titrate to achieve spo2>=88% Respiratory panel Incentive spirometry 3. Diarrhea: C diff toxin PCR NEGATIVE 4. Depression with anxiety: Fluoxetine 5. h/o COPD, stable: DuoNEB NEB PRN wheezing or shortness of breath Trelegy Ellipta Spiriva 6. h/o CHF: Holding Torsemide while giving IV fluid as part of the treatment of bacteremia, see #1 7. Restless leg syndrome: Pramipexole 8. Obstructive sleep apnea: CPAP at night while sleeping 9. Hypertension with chronic kidney disease III: Holding Torsemide while giving IV fluid as part of the treatment of bacteremia, see #1 Avoid nephrotoxic agents CMP in the morning to trend kidney functions 10. RUQ abdominal pain: DDx: right lower lobe pneumonia versus costochondritis versus constipations Rocephin and Zithromax for pneumonia Colace Senna Milk of Magnesia Miralax for constipation [place] Morphine for pain control GI ppx: PPI DVT ppx: Lovenox Code status: Full Prognosis: guarded Disposition: inpatient med surg Time Spent With Patient Time: Total time spent is greater than 50% in coordination of care (as documented) at patient's floor/unit and/or counseling patient: Subsequent: Total time with patient: 35 - 49 minutes QUALITY VTE Deep Vein Thrombosis/Pulmonary Embolism Present on Admission: No
[2022-08-27] MEDS: SENNOSIDES 1 TABLET PO SCH (20:09)
[2022-08-27] MEDS: PRAMIPEXOLE 0.25 MG TABLET PO SCH (20:44)
[2022-08-28 06:29] LABS: Basophils # (Auto) 0.02 K/mcL (0.00-0.30); Basophils % (Auto) 0.3 % (0.0-2.0); Eosinophils # (Auto) 0.27 K/mcL (0.00-0.70); Eosinophils % (Auto) 4.4 % (0.0-7.0); Hematocrit 31.9 % (34.1-44.9); Hemoglobin 9.8 g/dL (11.2-15.7); Lymphocytes # (Auto) 1.18 K/mcL (1.50-4.80); Lymphocytes % (Auto) 19.2 % (15.5-49.0); Mean Cell Volume 99.1 fL (80.0-100.0); Mean Corpuscular HGB Conc 30.7 g/dL (31.0-36.0); Mean Platelet Volume 9.7 fL (8.8-12.5); Monocytes % (Auto) 11.4 % (1.0-12.0); Neutrophils % (Auto) 63.9 % (38.0-78.0); Platelet Count 192 K/mcL (140-440); RBC 3.22 M/mcL (3.59-5.38); Red Cell Distribution Width 13.2 % (11.5-14.5); WBC 6.1 K/mcL (4.5-11.0)
[2022-08-28 06:53] LABS: ALT/SGPT 20 U/L (<40); AST/SGOT 17 U/L (<32); Albumin 2.9 gm/dL (3.2-5.2); Albumin/Globulin Ratio 0.9 (1.0-2.3); Alkaline Phosphatase 72 U/L (39-117); Bilirubin,Total 0.2 mg/dL (0.1-1.0); Blood Urea Nitrogen 14 mg/dL (8-23); Calcium 8.5 mg/dL (8.6-10.4); Carbon Dioxide 25 mmol/L (22-30); Chloride 108 mmol/L (96-108); Globulin 3.2 gm/dL (2.2-3.7); Glomerular Filtration Rate 58; Glucose 80 mg/dL (70-105)
[2022-08-28] MEDS: 0.9 % SODIUM CHLORIDE 10 ML SYRINGE IV SCH ×3 (06:58→20:20)
[2022-08-28] MEDS: PANTOPRAZOLE 40 MG TABLET PO SCH (08:14)
[2022-08-28] MEDS: ENOXAPARIN 40 MG/0.4 ML SYRINGE SQ SCH (08:42)
[2022-08-28] MEDS: BACLOFEN 10 MG TABLET PO SCH ×2 (08:42→20:20)
[2022-08-28] MEDS: FLUoxetine HCL 10 MG CAPSULE PO SCH (08:43)
[2022-08-28] MEDS: MULTIVIT,THER IRON,CA,FA & MIN 1 TABLET PO SCH (08:43)
[2022-08-28] MEDS: PREGABALIN 25 MG CAPSULE PO SCH (08:43)
[2022-08-28] MEDS: HYDROcodone/APAP 5/325MG TABLET PO PRN (08:43)
[2022-08-28] MEDS: Fluticasone-Umeclidin-Vilanter [Trelegy Ellipta] PO SCH (08:44)
[2022-08-28] MEDS: IPRATROPIUM/ALBUTEROL 3 ML AMPUL.NEB NEB PRN (09:30)
[2022-08-28] MEDS: DOCUSATE SODIUM 100 MG CAPSULE PO SCH (09:40)
[2022-08-28] MEDS: 0.9 % SODIUM CHLORIDE 1,000 ML IV SCH (09:59)
[2022-08-28] MEDS: cefTRIAXone 2 GM in DEXTROSE 5% IN WATER 50 ML IV SCH (09:59)
--- NOTE | 2022-08-28 10:05 | Internal Med Progress Note ---
SUBJECTIVE Subjective Patient information: Note initiated : 08/28/22 at 10:04 am Service Date, if different from initiated Date: [] Patient: Savanah Rubio a 86 y/o F admitted on 08/25/22 for recent sepsis, weakness, frequent urination. Chief Complaint: [] Interval history: Ms. Rubio is a 86 year old F history of obstructive sleep apnea, restless leg syndrome, anxiety/depressions, hypertensions with chronic kidney disease stage III, COPD, CHF, presented with 3-day history of general body weakness, diarrhea, and right upper quadrant abdominal pain. She presented to our ED 2 days ago for similar symptoms, and found with CT abdomen pelvis to have sigmoid diverticulosis without diverticulitis, as well as moderate right lower lobe pneumonia with small right pleural effusions. She was being discharged back to [facility] with prescriptions of Augmentin and azithromycin. She returned it today for worsening symptoms with right upper quadrant abdominal pain, sharp, severe, intermittent, ongoing diarrhea, and worsening general body weakness. She denies any fever chills or diaphoresis. She denies any nausea vomiting and she has good appetite. Blood culture obtained from her initial visit positive for strep pneumoniae in both sets. Soft blood pressure upon ED presentation today as low as 85 over 45 mmHg. Rest of the vital signs within normal limits. Blood pressure normalized now after fluid resuscitation's. Labs today significant for lack of leukocytosis with WBC 6.5. Lactic acid 0.3. Procalcitonin level 1.01. Repeat chest x-ray today showing interval resolution of right basilar infiltrate and effusions. Admission request is called for strep pneumoniae bacteremia. 08/26: Afebrile overnight. WBC 7.6 this morning. Repeat blood culture no growth today. Respiratory panel all negative. Patient is on room air. Patient had a few small bowel movement overnight. She is still complaining of right upper quadrant moderate sharp abdominal pain. She has no nausea vomiting and she is able to tolerate oral intake. Differential diagnosis of abdominal pain right lower lobe pneumonia versus costochondritis versus constipations. We will continue antibiotics with Rocephin and azithromycin. We will continue IV fluid with normal saline at 75 cc/h. Continue to monitor culture results. We will offer stool softener and laxative with Colace, senna, milk of magnesia, and MiraLAX to promote bowel mo vement. We will continue to offer narcotics including morphine and [place] for pain control. Overall condition guarded. Stay in [facility]. 08/27: Afebrile overnight. WBC 6.5. Repeat blood culture no growth to date. Patient had bowel movement overnight. She is on 2 L/min nasal cannula oxygen. She is complaining of mild shortness of breath. She is coming of cough with pink sputum. She is still complaining of moderate to severe right upper quadrant abdominal pain. Continue antibiotics with Rocephin and azithromycin while monitoring for repeat blood culture result. Continue normal saline running at 75 cc/h. Supplemental oxygen therapy. Incentive spirometry while awake. Continue stool softener and laxative Colace senna milk of magnesia and MiraLAX as needed to promote bowel movement. Overall condition guarded. Stay in [facility]. 08/28: Afebrile overnight. WBC 6.1. Repeat blood culture no growth to date. Patient had bowel movement overnight. She is on 2 L/min nasal cannula oxygen. She denies any shortness of breath and she has productive cough with clear sputum. She is coming of headache. She is coming of mild diffuse abdominal pain. Continue antibiotics with Rocephin and azithromycin while monitoring for repeat blood culture result. Saline lock. Supplemental oxygen therapy. Incentive spirometry while awake. Overall condition stable. Stay in [facility]. Constitutional Vitals: Vital Signs Temp Pulse Resp BP Pulse Ox O2 Del Method O2 Flow Rate 36.2 C 82 20 149/85 98 Nasal Cannula 2 08/28/22 04:00 08/28/22 09:52 08/28/22 09:52 08/28/22 04:00 08/28/22 04:00 08/28/22 09:52 08/28/22 09:52 Period Temp Pulse Resp BP Sys/Travis Pulse Ox O2 Del Method O2 Flow Rate Last 24 Hr 36.1 C-36.8 C 70-88 16-20 130-150/70-85 95-98 Nasal Cannula- Room Air 2 Intake and Output 08/27/22 08/28/22 08/28/22 19:59 03:59 11:59 Intake Total 300 1550 994 Output Total 1450 900 Balance -1150 650 994 Weight 81.783 kg Intake & Output: Intake & Output 08/27/22 08/28/22 08/28/22 19:59 03:59 11:59 Intake Total 300 1550 994 Output Total 1450 900 Balance -1150 650 994 Weight 81.783 kg Intake: IV 1000 994 Sodium Chloride 0.9% 1,000 ml @ 1000 994 75 mls/hr IV .[id number] [facility] Rx#: [id number] Oral 300 550 Output: Void Amount 1450 900 Other: Meal Lunch Percent of Meal Consumed 100% Feeding Ability Independent Urine Appearance Clear Clear Urine Color Yellow Yellow Urine Odor Normal Normal Stool Size Moderate Moderate Stool Color Brown Brown Stool Consistency Soft Soft # Voids 1 # Bowel Movements 1 Head Head exam: Present atraumatic and normal inspection Eye Eye exam: Present normal appearance ENT ENT exam: Present mucous membranes moist, normal exam and normal external ear exam Additional comments: Nasal cannula in place Neck Neck exam: Present normal inspection Respiratory Respiratory exam: Present normal respiratory exam Cardiovascular Cardiovascular exam: Present normal rate and rhythm GI/Abdominal GI/Abdominal exam: Present normal bowel sounds and tenderness Back Exam Back exam: Present normal inspection Neurological Exam Neurological exam: Present alert and oriented X3 Skin Skin exam: Present intact and warm OBJ DATA Labs 08/28/22 05:29 08/28/22 05:29 Labs: Abnormal Lab Results 08/28/22 08/28/22 08/27/22 05:29 05:29 05:00 RBC 3.22 L Hgb 9.8 L Hct 31.9 L MCV MCHC 30.7 L Immature Gran % (Auto) 0.8 H Lymph # (Auto) 1.18 L Immature Gran # POC VBG pH POC VBG pCO2 at Temp POC VBG pO2 POC Venous O2 Sat VBG Lactic Acid Chloride 114 H Anion Gap 5.0 L 6.0 L BUN Creatinine Calcium 8.5 L 8.4 L AST Albumin 2.9 L 3.0 L Albumin/Globulin Ratio 0.9 L Procalcitonin Urine Appearance Ur Leukocyte Esterase Urine Mucus 08/27/22 08/26/22 08/26/22 05:00 05:49 05:49 RBC 3.14 L 3.48 L Hgb 9.8 L 10.9 L Hct 31.2 L MCV 100.3 H MCHC Immature Gran % (Auto) 0.9 H Lymph # (Auto) 1.11 L Immature Gran # 0.06 H POC VBG pH POC VBG pCO2 at Temp POC VBG pO2 POC Venous O2 Sat VBG Lactic Acid Chloride 112 H Anion Gap 5.0 L BUN 30 H Creatinine 1.2 H Calcium 8.5 L AST Albumin Albumin/Globulin Ratio 0.9 L Procalcitonin Urine Appearance Ur Leukocyte Esterase Urine Mucus 08/25/22 08/25/22 08/25/22 13:12 10:27 10:25 RBC Hgb Hct MCV MCHC Immature Gran % (Auto) Lymph # (Auto) Immature Gran # POC VBG pH 7.30 L POC VBG pCO2 at Temp 52.9 H POC VBG pO2 16 L POC Venous O2 Sat 18.0 L VBG Lactic Acid 0.3 L Chloride Anion Gap BUN Creatinine Calcium AST Albumin Albumin/Globulin Ratio Procalcitonin 1.01 H Urine Appearance Hazy A Ur Leukocyte Esterase 25 A Urine Mucus Few A 08/25/22 08/25/22 10:25 10:25 RBC 3.50 L Hgb 10.9 L Hct MCV MCHC Immature Gran % (Auto) Lymph # (Auto) 1.08 L Immature Gran # POC VBG pH POC VBG pCO2 at Temp POC VBG pO2 POC Venous O2 Sat VBG Lactic Acid Chloride Anion Gap BUN 41 H Creatinine 1.4 H Calcium AST 40 H Albumin Albumin/Globulin Ratio Procalcitonin Urine Appearance Ur Leukocyte Esterase Urine Mucus Meds: Medications Acetaminophen (Acetaminophen 325 Mg Tablet) 650 mg PO Q6HP PRN; Protocol PRN Reason: Per Pain Protocol/Fever > 101 Hydrocodone Bitart/Acetaminophen (Hydrocodone/Apap 5/325mg Tablet) 1 tab PO TIDP PRN PRN Reason: Pain Last Admin: 08/28/22 08:43 Dose: 1 tab Albuterol/Ipratropium (Ipratropium/Albuterol 3 Ml Ampul.Neb) 3 ml NEB Q4HRT PRN PRN Reason: Wheezing Last Admin: 08/28/22 09:30 Dose: 3 ml Baclofen (Baclofen 10 Mg Tablet) 10 mg PO BID [facility] Last Admin: 08/28/22 08:42 Dose: 10 mg Docusate Sodium (Docusate Sodium 100 Mg Capsule) 100 mg PO BID [facility] Last Admin: 08/28/22 09:40 Dose: Not Given Enoxaparin Sodium (Enoxaparin 40 Mg/0.4 Ml Syringe) 40 mg SQ DAILY [facility] Last Admin: 08/28/22 08:42 Dose: 40 mg Fluoxetine HCl (Fluoxetine Hcl 10 Mg Capsule) 10 mg PO QDAY [facility] Last Admin: 08/28/22 08:43 Dose: 10 mg Sodium Chloride (Sodium Chloride 0.9%) 1,000 mls @ 75 mls/hr IV .[id number] [facility] Last Admin: 08/28/22 09:59 Dose: 75 mls/hr Ceftriaxone Sodium 2 gm/ (Dextrose) 50 mls @ 100 mls/hr IV Q24H [facility]; Protocol Last Admin: 08/28/22 09:59 Dose: 100 mls/hr Iron Carb/Multivit/[place]/Folic Acid (Multivit,Ther Iron,Ca,Fa & Min 1 Tablet) 1 tab PO QAM [facility] Last Admin: 08/28/22 08:43 Dose: 1 tab Magnesium Hydroxide (Magnesium Hydroxide 30 Ml Oral.Susp) 30 ml PO BIDP PRN PRN Reason: Constipation Morphine Sulfate (Morphine 4 Mg/Ml Vial) 2 mg IV Q4HP PRN; Protocol PRN Reason: Per Pain Protocol Ondansetron HCl (Ondansetron 4 Mg/2 Ml Vial) 4 mg IV Q6HP PRN PRN Reason: Nausea And Vomiting Oxycodone HCl (Oxycodone Ir 5 Mg Tablet) 5 mg PO Q4HP PRN; Protocol PRN Reason: Per Pain Protocol Pantoprazole Sodium ([facility]antoprazole 40 Mg Tablet) [facility] Last Admin: 08/28/22 08:14 Dose: 40 mg Fluticasone- Umeclidin-Vilanter [ Trelegy Ellipta] 1 dose PO QDAY [facility] Last Admin: 08/28/22 08:44 Dose: Not Given Polyethylene Glycol (Polyethylene Glycol 3350 17 Gm Packet) 17 gm PO DAILYP PRN PRN Reason: Constipation Pramipexole Dihydrochloride (Pramipexole 0.25 Mg Tablet) 0.5 mg PO [facility] Last Admin: 08/27/22 20:44 Dose: 0.5 mg Pregabalin (Pregabalin 25 Mg Capsule) 50 mg PO QDAY [facility] Last Admin: 08/28/22 08:43 Dose: 50 mg Senna (Sennosides 1 Tablet) 2 tab PO [facility] Last Admin: 08/27/22 20:09 Dose: Not Given Sodium Chloride (0.9 % Sodium Chloride 10 Ml Syringe) 10 ml IV Q8 [facility] Last Admin: 08/28/22 06:58 Dose: Not Given Trazodone HCl (Trazodone Hcl 50 Mg Tablet) 25 mg PO HSP PRN PRN Reason: Insomnia A/P Assessment and plan (1) Bacteremia due to Streptococcus pneumoniae: Status: Acute (2) Diarrhea: Status: Acute (3) Obstructive sleep apnea: Status: Chronic (4) Restless leg syndrome: Status: Chronic (5) Hypertensive heart and chronic kidney disease with heart failure and stage 1 through stage 4 chronic kidney disease, or unspecified chronic kidney disease: Status: Chronic (6) CHF (congestive heart failure): Status: Chronic (7) COPD (chronic obstructive pulmonary disease): Status: Chronic Comment: hospitalization for copd exacerbation Qualifiers: COPD type: chronic bronchitis Chronic bronchitis type: mucopurulent Qualified Code(s): J41.1 - Mucopurulent chronic bronchitis (8) Anxiety and depression: Status: Acute (9) Right lower lobe pneumonia: Status: Acute Narrative A/P Narrative: Assessment and Plans: 1. Strep pneumoniae bacteremia: Inpatient med surg Serial lactic acid Procalcitonin level Repeat blood cultures X2 on 08/25, no growth to date cbc w/ auto diff in the morning to trend WBC Saline lock Rocephin Physical therapy evaluation and treatment 2. Right lower lobe pneumonia: Repeat CXR showing interval resolution of infiltrates Cover with Rocephin and Zithromax Supplemental oxygen therapy titrate to achieve spo2>=88% Respiratory panel Incentive spirometry 3. Diarrhea: C diff toxin PCR NEGATIVE 4. Depression with anxiety: Fluoxetine 5. h/o COPD, stable: DuoNEB NEB PRN wheezing or shortness of breath Trelegy Ellipta Spiriva 6. h/o CHF: Saline lock Resume Torsemide 7. Restless leg syndrome: Pramipexole 8. Obstructive sleep apnea: CPAP at night while sleeping 9. Hypertension with chronic kidney disease III: Resume Torsemide Avoid nephrotoxic agents CMP in the morning to trend kidney functions 10. RUQ abdominal pain: DDx: right lower lobe pneumonia versus costochondritis versus constipations Rocephin and Zithromax for pneumonia Laxative/stool softeners PRN constipation [place] Morphine for pain control GI ppx: PPI DVT ppx: Lovenox Code status: Full Prognosis: Stable Disposition: inpatient med surg Time Spent With Patient Time: Total time spent is greater than 50% in coordination of care (as documented) at patient's floor/unit and/or counseling patient: Subsequent: Total time with patient: 35 - 49 minutes QUALITY VTE Deep Vein Thrombosis/Pulmonary Embolism Present on Admission: No
--- NOTE | 2022-08-28 13:54 | Internal Med Progress Note ---
SUBJECTIVE Subjective Patient information: Note initiated : 08/28/22 at 1:47 pm Service Date, if different from initiated Date: [] Patient: Savanah Rubio a 86 y/o F admitted on 08/25/22 for recent sepsis, weakness, frequent urination. Chief Complaint: [] Interval history: Ms. Rubio is a 86 year old F history of obstructive sleep apnea, restless leg syndrome, anxiety/depressions, hypertensions with chronic kidney disease stage III, COPD, CHF, presented with 3-day history of general body weakness, diarrhea, and right upper quadrant abdominal pain. She presented to our ED 2 days ago for similar symptoms, and found with CT abdomen pelvis to have sigmoid diverticulosis without diverticulitis, as well as moderate right lower lobe pneumonia with small right pleural effusions. She was being discharged back to [facility] with prescriptions of Augmentin and azithromycin. She returned it today for worsening symptoms with right upper quadrant abdominal pain, sharp, severe, intermittent, ongoing diarrhea, and worsening general body weakness. She denies any fever chills or diaphoresis. She denies any nausea vomiting and she has good appetite. Blood culture obtained from her initial visit positive for strep pneumoniae in both sets. Soft blood pressure upon ED presentation today as low as 85 over 45 mmHg. Rest of the vital signs within normal limits. Blood pressure normalized now after fluid resuscitation's. Labs today significant for lack of leukocytosis with WBC 6.5. Lactic acid 0.3. Procalcitonin level 1.01. Repeat chest x-ray today showing interval resolution of right basilar infiltrate and effusions. Admission request is called for strep pneumoniae bacteremia. 08/26: Afebrile overnight. WBC 7.6 this morning. Repeat blood culture no growth today. Respiratory panel all negative. Patient is on room air. Patient had a few small bowel movement overnight. She is still complaining of right upper quadrant moderate sharp abdominal pain. She has no nausea vomiting and she is able to tolerate oral intake. Differential diagnosis of abdominal pain right lower lobe pneumonia versus costochondritis versus constipations. We will continue antibiotics with Rocephin and azithromycin. We will continue IV fluid with normal saline at 75 cc/h. Continue to monitor culture results. We will offer stool softener and laxative with Colace, senna, milk of magnesia, and MiraLAX to promote bowel mov ement. We will continue to offer narcotics including morphine and [place] for pain control. Overall condition guarded. Stay in [facility]. 08/27: Afebrile overnight. WBC 6.5. Repeat blood culture no growth to date. Patient had bowel movement overnight. She is on 2 L/min nasal cannula oxygen. She is complaining of mild shortness of breath. She is coming of cough with pink sputum. She is still complaining of moderate to severe right upper quadrant abdominal pain. Continue antibiotics with Rocephin and azithromycin while monitoring for repeat blood culture result. Continue normal saline running at 75 cc/h. Supplemental oxygen therapy. Incentive spirometry while awake. Continue stool softener and laxative Colace senna milk of magnesia and MiraLAX as needed to promote bowel movement. Overall condition guarded. Stay in [facility]. 08/28: Afebrile overnight. WBC 6.1. Repeat blood culture no growth to date. Patient had bowel movement overnight. She is on 2 L/min nasal cannula oxygen. She denies any shortness of breath and she has productive cough with clear sputum. She is coming of headache. She is coming of mild diffuse abdominal pain. Continue antibiotics with Rocephin and azithromycin while monitoring for repeat blood culture result. Saline lock. Supplemental oxygen therapy. Incentive spirometry while awake. Overall condition stable. Stay in [facility]. 08/29 Review of Systems: denies headache/fever/chills/nausea/vomiting/chest or abdominal pain/cough/dyspnea/diarrhea. Otherwise see above. PHYSICAL EXAM General: Alert, Awake, No acute Distress, obese Eyes/N/T: EOMI, no scleral icterus, Head/Neck: neck supple, full ROM, CV: RRR, No murmurs, Pulm: Clear b/l, no wheezing/rhonchi/rales, no respiratory distress Abd: soft, nontender, +BS x4 Ext: no clubbing/cyanosis/edema, nontender Neuro: Alert, no focal deficits, moves all extremities, , sensations intact b/l upper/lower Psychiatric: Skin: warm/dry, normal color Constitutional Vitals: Vital Signs Temp Pulse Resp BP Pulse Ox O2 Del Method O2 Flow Rate 98.1 F 80 16 140/70 95 Room Air 2 08/28/22 12:00 08/28/22 12:00 08/28/22 12:00 08/28/22 12:00 08/28/22 12:00 08/28/22 12:00 08/28/22 09:52 Period Temp Pulse Resp BP Sys/Travis Pulse Ox O2 Del Method O2 Flow Rate Last 24 Hr 97 F-98.2 F 70-88 16-20 130-150/70-85 95-98 Nasal Cannula-Room Air 2 Intake and Output 08/28/22 08/28/22 08/28/22 03:59 11:59 19:59 Intake Total 1550 994 Output Total 900 Balance 650 994 Intake & Output: Intake & Output 08/28/22 08/28/22 08/28/22 03:59 11:59 19:59 Intake Total 1550 994 Output Total 900 Balance 650 994 Intake: IV 1000 994 Sodium Chloride 0.9% 1,000 ml @ 1000 994 75 mls/hr IV .[id number] [facility] Rx#: [id number] Oral 550 Output: Void Amount 900 Other: Urine Appearance Clear Urine Color Yellow Urine Odor Normal Stool Size Moderate Stool Color Brown Stool Consistency Soft OBJ DATA Labs 08/28/22 05:29 08/28/22 05:29 Labs: Abnormal Lab Results 08/28/22 08/28/22 08/27/22 05:29 05:29 05:00 RBC 3.22 L Hgb 9.8 L Hct 31.9 L MCV MCHC 30.7 L Immature Gran % (Auto) 0.8 H Lymph # (Auto) 1.18 L Immature Gran # Chloride 114 H Anion Gap 5.0 L 6.0 L BUN Creatinine Calcium 8.5 L 8.4 L Albumin 2.9 L 3.0 L Albumin/Globulin Ratio 0.9 L Urine Appearance Ur Leukocyte Esterase Urine Mucus 08/27/22 08/26/22 08/26/22 05:00 05:49 05:49 RBC 3.14 L 3.48 L Hgb 9.8 L 10.9 L Hct 31.2 L MCV 100.3 H MCHC Immature Gran % (Auto) 0.9 H Lymph # (Auto) 1.11 L Immature Gran # 0.06 H Chloride 112 H Anion Gap 5.0 L BUN 30 H Creatinine 1.2 H Calcium 8.5 L Albumin Albumin/Globulin Ratio 0.9 L Urine Appearance Ur Leukocyte Esterase Urine Mucus 08/25/22 13:12 RBC Hgb Hct MCV MCHC Immature Gran % (Auto) Lymph # (Auto) Immature Gran # Chloride Anion Gap BUN Creatinine Calcium Albumin Albumin/Globulin Ratio Urine Appearance Hazy A Ur Leukocyte Esterase 25 A Urine Mucus Few A Meds: Medications Acetaminophen (Acetaminophen 325 Mg Tablet) 650 mg PO Q6HP PRN; Protocol PRN Reason: Per Pain Protocol/Fever > 101 Last Admin: 08/28/22 13:46 Dose: 650 mg Hydrocodone Bitart/Acetaminophen (Hydrocodone/Apap 5/325mg Tablet) 1 tab PO TIDP PRN PRN Reason: Pain Last Admin: 08/28/22 08:43 Dose: 1 tab Albuterol/Ipratropium (Ipratropium/Albuterol 3 Ml Ampul.Neb) 3 ml NEB Q4HRT PRN PRN Reason: Wheezing Last Admin: 08/28/22 09:30 Dose: 3 ml Baclofen (Baclofen 10 Mg Tablet) 10 mg PO BID [facility] Last Admin: 08/28/22 08:42 Dose: 10 mg Enoxaparin Sodium (Enoxaparin 40 Mg/0.4 Ml Syringe) 40 mg SQ DAILY [facility] Last Admin: 08/28/22 08:42 Dose: 40 mg Fluoxetine HCl (Fluoxetine Hcl 10 Mg Capsule) 10 mg PO QDAY [facility] Last Admin: 08/28/22 08:43 Dose: 10 mg Ceftriaxone Sodium 2 gm/ (Dextrose) 50 mls @ 100 mls/hr IV Q24H [facility]; Protocol Last Admin: 08/28/22 09:59 Dose: 100 mls/hr Iron Carb/Multivit/[place]/Folic Acid (Multivit,Ther Iron,Ca,Fa & Min 1 Tablet) 1 tab PO QAM [facility] Last Admin: 08/28/22 08:43 Dose: 1 tab Magnesium Hydroxide (Magnesium Hydroxide 30 Ml Oral.Susp) 30 ml PO BIDP PRN PRN Reason: Constipation Morphine Sulfate (Morphine 4 Mg/Ml Vial) 2 mg IV Q4HP PRN; Protocol PRN Reason: Per Pain Protocol Ondansetron HCl (Ondansetron 4 Mg/2 Ml Vial) 4 mg IV Q6HP PRN PRN Reason: Nausea And Vomiting Oxycodone HCl (Oxycodone Ir 5 Mg Tablet) 5 mg PO Q4HP PRN; Protocol PRN Reason: Per Pain Protocol Pantoprazole Sodium (Pantoprazole 40 Mg Tablet) 40 mg PO QAMAC [facility] Last Admin: 08/28/22 08:14 Dose: 40 mg Fluticasone- Umeclidin-Vilanter [ Trelegy Ellipta] 1 dose PO QDAY [facility] Last Admin: 08/28/22 08:44 Dose: Not Given Pramipexole Dihydrochloride (Pramipexole 0.25 Mg Tablet) 0.5 mg PO HS [facility] Last Admin: 08/27/22 20:44 Dose: 0.5 mg Pregabalin (Pregabalin 25 Mg Capsule) 50 mg PO QDAY [facility] Last Admin: 08/28/22 08:43 Dose: 50 mg Sodium Chloride (0.9 % Sodium Chloride 10 Ml Syringe) 10 ml IV Q8 [facility] Last Admin: 08/28/22 06:58 Dose: Not Given Torsemide (Torsemide 20 Mg Tablet) 10 mg PO QDAY [facility] Trazodone HCl (Trazodone Hcl 50 Mg Tablet) 25 mg PO HSP PRN PRN Reason: Insomnia A/P Narrative A/P Narrative: *Assessment and Plans: *RLL PNA: -Repeat CXR showing interval resolution of infiltrates -Cover with Rocephin and Zithromax -Supplemental oxygen therapy titrate to achieve spo2>=88% -Incentive spirometry *Bacteremia (strep pneumonia): 2/ above -Serial lactic acid , Procalcitonin level -Repeat blood cultures X2 on 08/25, no growth to date -cbc w/ auto diff in the morning to trend WBC -Rocephin *Diarrhea: -C diff toxin PCR NEGATIVE *Depression with anxiety: -Fluoxetine *h/o COPD( ), stable: -DuoNEB NEB PRN wheezing or shortness of breath -Trelegy Ellipta , Spiriva *h/o CHF: -Saline lock, -Resume Torsemide *Restless leg syndrome: -Pramipexole *Obstructive sleep apnea: -CPAP at night while sleeping *HTN: -Resume Torsemide *FLAVIA on CKD III: -Avoid nephrotoxic agents -CMP in the morning to trend kidney functions *Anemia: monitor H&H *Obesity: bmi 33 *Generalized weakness/deconditioning: -pt/ot -CM for placement needs *ppx: Lovenox / home ppi 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
--- NOTE | 2022-08-28 14:07 | Discharge Summary ---
Discharge Provider Provider IMPORTANT FOLLOW-UP INFORMATION FOR PCP: Patient information: Note initiated : 08/28/22 at 2:04 pm Service Date, if different from initiated Date: [] Patient: Savanah Rubio a 86 y/o F admitted on 08/25/22 for recent sepsis, weakness, frequent urination. Chief Complaint: [] Date of admission: 08/25/22 14:16 Discharge date: 08/30/22 Primary care physician: CHRISTINA Aragon Consults: 08/25/22 Consult to Physician [CONS] Stat Comment: Consulting Provider: Fer Angel Reason For Exam: Physician to Consult COURSE Hospital Course Hospital course: Ms. Rubio is a 86 year old F history of obstructive sleep apnea, restless leg syndrome, anxiety/depressions, hypertensions with chronic kidney disease stage III, COPD, CHF, presented with 3-day history of general body weakness, diarrhea, and right upper quadrant abdominal pain. She presented to our ED 2 days ago for similar symptoms, and found with CT abdomen pelvis to have sigmoid diverticulosis without diverticulitis, as well as moderate right lower lobe pneumonia with small right pleural effusions. She was being discharged back to [facility] with prescriptions of Augmentin and azithromycin. She returned it today for worsening symptoms with right upper quadrant abdominal pain, sharp, severe, intermittent, ongoing diarrhea, and worsening general body weakness. She denies any fever chills or diaphoresis. She denies any nausea vomiting and she has good appetite. Blood culture obtained from her initial visit positive for strep pneumoniae in both sets. Sof t blood pressure upon ED presentation today as low as 85 over 45 mmHg. Rest of the vital signs within normal limits. Blood pressure normalized now after fluid resuscitation's. Labs today significant for lack of leukocytosis with WBC 6.5. Lactic acid 0.3. Procalcitonin level 1.01. Repeat chest x-ray today showing interval resolution of right basilar infiltrate and effusions. Admission request is called for strep pneumoniae bacteremia. 08/26: Afebrile overnight. WBC 7.6 this morning. Repeat blood culture no growth today. Respiratory panel all negative. Patient is on room air. Patient had a few small bowel movement overnight. She is still complaining of right upper quadrant moderate sharp abdominal pain. She has no nausea vomiting and she is able to tolerate oral intake. Differential diagnosis of abdominal pain right lower lobe pneumonia versus costochondritis versus constipations. We will continue antibiotics with Rocephin and azithromycin. We will continue IV fluid with normal saline at 75 cc/h. Continue to monitor culture results. We will offer stool softener and laxative with Colace, senna, milk of magnesia, and MiraLAX to promote bowel movement. We will continue to offer narcotics including morphine and [place] for pain control. Overall condition guarded. Stay in [facility]. 08/27: Afebrile overnight. WBC 6.5. Repeat blood culture no growth to date. Patient had bowel movement overnight. She is on 2 L/min nasal cannula oxygen. She is complaining of mild shortness of breath. She is coming of cough with pink sputum. She is still complaining of moderate to severe right upper quadrant abdominal pain. Continue antibiotics with Rocephin and azithromycin while monitoring for repeat blood culture result. Continue normal saline running at 75 cc/h. Supplemental oxygen therapy. Incentive spirometry while awake. Continue stool softener and laxative Colace senna milk of magnesia and MiraLAX as needed to promote bowel movement. Overall condition guarded. Stay in [facility]. 08/28: Afebrile overnight. WBC 6.1. Repeat blood culture no growth to date. Patient had bowel movement overnight. She is on 2 L/min nasal cannula oxygen. She denies any shortness of breath and she has productive cough with clear sputum. She is coming of headache. She is coming of mild diffuse abdominal pain. Continue antibiotics with Rocephin and azithromycin while monitoring for repeat blood culture result. Saline lock. Supplemental oxygen therapy. Incentive spirometry while awake. Overall condition stable. Stay in [facility]. 08/29 Patient complains of poor sleep. Some itching over her forehead. Complains of headache. Has cough. Shortness of breath improving. Feeling weak. 08/30 Patient sitting up in chair. She seems to be doing well. She has residual co ugh. Would like a breathing treatment this morning. She is on room air. Assessment and Plans: *RLL PNA: -abx *Bacteremia (strep pneumonia): 2/2 above -10-14 day total course of abx *Diarrhea: C diff toxin PCR NEGATIVE *Depression with anxiety: Fluoxetine *h/o COPD( ), stable: Trelegy Ellipta , Spiriva -request prn duonebs *h/o CHF: Resume Torsemide *Restless leg syndrome: Pramipexole *Obstructive sleep apnea: CPAP at night while sleeping *HTN: Resume Torsemide *FLAVIA on CKD III: *Anemia: *Obesity: bmi 33 *Generalized weakness/deconditioning: Discharge diagnosis: Pneumonia bacteremia Secondary discharge diagnosis: Diarrhea depression anxiety COPD CHF restless leg syndrome obstructive sleep apnea hypertension acute kidney injury anemia obesity Time Spent with Patient Time attestation: Total time spent providing and/or coordinating discharge services: Time spent: Greater than 30 minutes EXAM Constitutional Vitals: Temp Pulse Resp BP Pulse Ox O2 Del Method O2 Flow Rate 98.1 F 80 16 140/70 95 Room Air 2 08/28/22 12:00 08/28/22 12:00 08/28/22 12:00 08/28/22 12:00 08/28/22 12:00 08/28/22 12:00 08/28/22 09:52 Discharge Data Data Completed and Pending Labs on day of discharge: Labs from last 24 hours 08/28/22 08/28/22 05:29 05:29 WBC 6.1 RBC 3.22 L Hgb 9.8 L Hct 31.9 L MCV 99.1 MCH 30.4 MCHC 30.7 L RDW 13.2 Plt Count 192 MPV 9.7 Immature Gran % (Auto) 0.8 H Neut % (Auto) 63.9 Lymph % (Auto) 19.2 [place] % (Auto) 11.4 Eos % (Auto) 4.4 Baso % (Auto) 0.3 Lymph # (Auto) 1.18 L [place] # (Auto) 0.70 Eos # (Auto) 0.27 Baso # (Auto) 0.02 Immature Gran # 0.05 Absolute Neutrophils 3.92 Sodium 138 Potassium 4.6 Chloride 108 Carbon Dioxide 25 Anion Gap 5.0 L BUN 14 Creatinine 0.9 GFR Calculation 58 Glucose 80 Calcium 8.5 L Total Bilirubin 0.2 AST 17 ALT 20 Alkaline Phosphatase 72 Total Protein 6.1 Albumin 2.9 L Globulin 3.2 Albumin/Globulin Ratio 0.9 L Preliminary micro results at discharge 08/25/22 10:38 Blood Culture - Preliminary Blood 08/25/22 10:25 Blood Culture - Preliminary Blood Discharge Plan Patient/Caregiver Discharge Instructions Activity: increase activity as tolerated Diet: Regular Diet Prescriptions: New ipratropium-albuterol 0.5 mg-3 mg(2.5 mg base)/3 mL solution for nebulization 3 ml inhalation Q6H PRN (Reason: shortness of breath) Qty: 90 0RF (DME) nebulizers [AeroEclipse II Nebulizer] [facility] [place] See Rx Instructions .ROUTE Qty: 1 0RF Rx Instructions: As directed Continued Trelegy Ellipta 100-62.5-25 mcg blister with device 1 ea PO QDAY Qty: 60 10RF Rx Instructions: Rinse, gargle and spit after use torsemide 20 mg tablet 10 mg PO QDAY hydrocodone-acetaminophen 5-325 mg tablet 1 tab PO TID PRN (Reason: Pain) magnesium glycinate 100 mg magnesium capsule PO pantoprazole [Protonix] 40 mg tablet,delayed release (DR/EC) 20 mg PO QDAY acetaminophen [Tylenol] 325 mg Tablet 650 mg PO Q4HP PRN (Reason: pain/elevated temp) multivitamin [Daily Multi-Vitamin] Tablet 1 tab PO QAM fluoxetine 10 mg Tablet 10 mg PO QDAY baclofen 10 mg tablet 10 mg PO BID Spiriva with HandiHaler 18 mcg capsule, w/inhalation device 18 mcg INHALATION DAILY pregabalin 50 mg capsule 50 mg PO QDAY pramipexole 0.5 mg tablet 0.5 mg PO HS amoxicillin-pot clavulanate 875-125 mg tablet 1 tab PO BID 7 Days Qty: 14 0RF Discontinued azithromycin 250 mg tablet See Rx Instructions .ROUTE .COMPLEX Qty: 6 0RF Rx Instructions: For 250 mg dose pack: take 500 mg today (day 1), then 250 mg for 4 days (days 2-5) Follow Up Plan Follow up with: Dayanara Mccabe FNP [Primary Care Provider] - Patient Disposition: [facility] Prognosis: Fair Overall status at discharge: patient is progressing back to baseline Discharge Orders: Discharge Order (Routine); Ordered 08/30/22 Ordered By: Jung Pack [facility] VTE Deep Vein Thrombosis/Pulmonary Embolism Present on Admission: No
[2022-08-28] MEDS: PRAMIPEXOLE 0.25 MG TABLET PO SCH (20:19)
[2022-08-29] MEDS: IPRATROPIUM/ALBUTEROL 3 ML AMPUL.NEB NEB PRN (03:24)
[2022-08-29] MEDS: 0.9 % SODIUM CHLORIDE 10 ML SYRINGE IV SCH ×3 (06:49→20:43)
[2022-08-29] MEDS: PANTOPRAZOLE 40 MG TABLET PO SCH (07:44)
--- NOTE | 2022-08-29 08:30 | Internal Med Progress Note ---
SUBJECTIVE Subjective Patient information: Note initiated : 08/29/22 at 8:29 am Service Date, if different from initiated Date: [] Patient: Savanah Rubio a 86 y/o F admitted on 08/25/22 for recent sepsis, weakness, frequent urination. Chief Complaint: [] Interval history: Ms. Rubio is a 86 year old F history of obstructive sleep apnea, restless leg syndrome, anxiety/depressions, hypertensions with chronic kidney disease stage III, COPD, CHF, presented with 3-day history of general body weakness, diarrhea, and right upper quadrant abdominal pain. She presented to our ED 2 days ago for similar symptoms, and found with CT abdomen pelvis to have sigmoid diverticulosis without diverticulitis, as well as moderate right lower lobe pneumonia with small right pleural effusions. She was being discharged back to [facility] with prescriptions of Augmentin and azithromycin. She returned it today for worsening symptoms with right upper quadrant abdominal pain, sharp, severe, intermittent, ongoing diarrhea, and worsening general body weakness. She denies any fever chills or diaphoresis. She denies any nausea vomiting and she has good appetite. Blood culture obtained from her initial visit positive for strep pneumoniae in both sets. Soft blood pressure upon ED presentation today as low as 85 over 45 mmHg. Rest of the vital signs within normal limits. Blood pressure normalized now after fluid resuscitation's. Labs today significant for lack of leukocytosis with WBC 6.5. Lactic acid 0.3. Procalcitonin level 1.01. Repeat chest x-ray today showing interval resolution of right basilar infiltrate and effusions. Admission request is called for strep pneumoniae bacteremia. 08/26: Afebrile overnight. WBC 7.6 this morning. Repeat blood culture no growth today. Respiratory panel all negative. Patient is on room air. Patient had a few small bowel movement overnight. She is still complaining of right upper quadrant moderate sharp abdominal pain. She has no nausea vomiting and she is able to tolerate oral intake. Differential diagnosis of abdominal pain right lower lobe pneumonia versus costochondritis versus constipations. We will continue antibiotics with Rocephin and azithromycin. We will continue IV fluid with normal saline at 75 cc/h. Continue to monitor culture results. We will offer stool softener and laxative with Colace, senna, milk of magnesia, and MiraLAX to promote bowel mov ement. We will continue to offer narcotics including morphine and [place] for pain control. Overall condition guarded. Stay in [facility]. 08/27: Afebrile overnight. WBC 6.5. Repeat blood culture no growth to date. Patient had bowel movement overnight. She is on 2 L/min nasal cannula oxygen. She is complaining of mild shortness of breath. She is coming of cough with pink sputum. She is still complaining of moderate to severe right upper quadrant abdominal pain. Continue antibiotics with Rocephin and azithromycin while monitoring for repeat blood culture result. Continue normal saline running at 75 cc/h. Supplemental oxygen therapy. Incentive spirometry while awake. Continue stool softener and laxative Colace senna milk of magnesia and MiraLAX as needed to promote bowel movement. Overall condition guarded. Stay in [facility]. 08/28: Afebrile overnight. WBC 6.1. Repeat blood culture no growth to date. Patient had bowel movement overnight. She is on 2 L/min nasal cannula oxygen. She denies any shortness of breath and she has productive cough with clear sputum. She is coming of headache. She is coming of mild diffuse abdominal pain. Continue antibiotics with Rocephin and azithromycin while monitoring for repeat blood culture result. Saline lock. Supplemental oxygen therapy. Incentive spirometry while awake. Overall condition stable. Stay in [facility]. 08/29 Patient complains of poor sleep. Some itching over her forehead. Complains of headache. Has cough. Shortness of breath improving. Feeling weak. Review of Systems: denies headache/fever/chills/nausea/vomiting/chest or abdominal pain/diarrhea. Otherwise see above. PHYSICAL EXAM General: Alert, Awake, No acute Distress, obese Eyes/N/T: EOMI, no scleral icterus, Head/Neck: neck supple, full ROM, CV: RRR, 2/6SM, Pulm: mild rales b/l, no wheezing, no respiratory distress Abd: soft, nontender, +BS x4 Ext: no clubbing/cyanosis/edema, nontender Neuro: Alert, no focal deficits, moves all extremities, , sensations intact b/l upper/lower Psychiatric: Skin: warm/dry, normal color Constitutional Vitals: Vital Signs Temp Pulse Resp BP Pulse Ox O2 Del Method O2 Flow Rate 98.2 F 80 16 142/82 94 Room Air 2 08/29/22 06:51 08/29/22 06:51 08/29/22 06:51 08/29/22 06:51 08/29/22 06:51 08/29/22 06:51 08/29/22 04:00 Period Temp Pulse Resp BP Sys/Travis Pulse Ox O2 Del Method O2 Flow Rate Last 24 Hr 97.3 F-98.8 F 68-84 16-20 133-145/48-85 94-100 Nasal Cannula- Room Air 2-2 Intake and Output 08/28/22 08/29/22 08/29/22 19:59 03:59 11:59 Intake Total 400 1500 Output Total 1350 1750 Balance -950 -250 Weight 82.826 kg Intake & Output: Intake & Output 08/28/22 08/29/22 08/29/22 19:59 03:59 11:59 Intake Total 400 1500 Output Total 1350 1750 Balance -950 -250 Weight 82.826 kg Intake: IV 1000 Sodium Chloride 0.9% 1,000 ml @ 1000 75 mls/hr IV .[id number] [facility] Rx#: [id number] Oral 400 500 Output: Void Amount 1350 Urine/Stool Mix 1750 Other: Meal Lunch Percent of Meal Consumed 100% Feeding Ability Independent Urine Appearance Clear Urine Color Yellow Stool Size Small Small Stool Color Brown Brown Stool Consistency Formed Soft # Bowel Movements 3 OBJ DATA Labs 08/28/22 05:29 08/28/22 05:29 Labs: Abnormal Lab Results 08/28/22 08/28/22 08/27/22 05:29 05:29 05:00 RBC 3.22 L Hgb 9.8 L Hct 31.9 L MCHC 30.7 L Immature Gran % (Auto) 0.8 H Lymph # (Auto) 1.18 L Immature Gran # Chloride 114 H Anion Gap 5.0 L 6.0 L Calcium 8.5 L 8.4 L Albumin 2.9 L 3.0 L Albumin/Globulin Ratio 0.9 L 08/27/22 05:00 RBC 3.14 L Hgb 9.8 L Hct 31.2 L MCHC Immature Gran % (Auto) 0.9 H Lymph # (Auto) 1.11 L Immature Gran # 0.06 H Chloride Anion Gap Calcium Albumin Albumin/Globulin Ratio Meds: Medications Acetaminophen (Acetaminophen 325 Mg Tablet) 650 mg PO Q6HP PRN; Protocol PRN Reason: Per Pain Protocol/Fever > 101 Last Admin: 08/28/22 13:46 Dose: 650 mg Hydrocodone Bitart/Acetaminophen (Hydrocodone/Apap 5/325mg Tablet) 1 tab PO TI DP PRN PRN Reason: Pain Last Admin: 08/28/22 08:43 Dose: 1 tab Albuterol/Ipratropium (Ipratropium/Albuterol 3 Ml Ampul.Neb) 3 ml NEB Q4HRT PRN PRN Reason: Wheezing Last Admin: 08/29/22 03:24 Dose: 3 ml Baclofen (Baclofen 10 Mg Tablet) 10 mg PO BID [facility] Last Admin: 08/28/22 20:20 Dose: 10 mg Enoxaparin Sodium (Enoxaparin 40 Mg/0.4 Ml Syringe) 40 mg SQ DAILY [facility] Last Admin: 08/28/22 08:42 Dose: 40 mg Fluoxetine HCl (Fluoxetine Hcl 10 Mg Capsule) 10 mg PO QDAY [facility] Last Admin: 08/28/22 08:43 Dose: 10 mg Ceftriaxone Sodium 2 gm/ (Dextrose) 50 mls @ 100 mls/hr IV Q24H [facility]; Protocol Last Infusion: 08/28/22 10:29 Dose: Infused Iron Carb/Multivit/Windows [employer] Doors Installer/Folic Acid (Multivit,Ther Iron,Ca,Fa & Min 1 Tablet) 1 tab PO QAM [facility] Last Admin: 08/28/22 08:43 Dose: 1 tab Magnesium Hydroxide (Magnesium Hydroxide 30 Ml Oral.Susp) 30 ml PO BIDP PRN PRN Reason: Constipation Morphine Sulfate (Morphine 4 Mg/Ml Vial) 2 mg IV Q4HP PRN; Protocol PRN Reason: Per Pain Protocol Ondansetron HCl (Ondansetron 4 Mg/2 Ml Vial) 4 mg IV Q6HP PRN PRN Reason: Nausea And Vomiting Oxycodone HCl (Oxycodone Ir 5 Mg Tablet) 5 mg PO Q4HP PRN; Protocol PRN Reason: Per Pain Protocol Pantoprazole Sodium (Pantoprazole 40 Mg Tablet) 40 mg PO QAMAC [facility] Last Admin: 08/29/22 07:44 Dose: 40 mg Fluticasone- Umeclidin-Vilanter [ Trelegy Ellipta] 1 dose PO QDAY [facility] Last Admin: 08/28/22 08:44 Dose: Not Given Pramipexole Dihydrochloride (Pramipexole 0.25 Mg Tablet) 0.5 mg PO HS [facility] Last Admin: 08/28/22 20:19 Dose: 0.5 mg Pregabalin (Pregabalin 25 Mg Capsule) 50 mg PO QDAY [facility] Last Admin: 08/28/22 08:43 Dose: 50 mg Sodium Chloride (0.9 % Sodium Chloride 10 Ml Syringe) 10 ml IV Q8 [facility] Last Admin: 08/29/22 06:49 Dose: Not Given Torsemide (Torsemide 20 Mg Tablet) 10 mg PO QDAY [facility] Trazodone HCl (Trazodone Hcl 50 Mg Tablet) 25 mg PO HSP PRN PRN Reason: Insomnia A/P Narrative A/P Narrative: Assessment and Plans: *RLL PNA: -Repeat CXR showing improvement -Cover with Rocephin and Zithromax -Supplemental oxygen therapy titrate to achieve spo2>=88% -Incentive spirometry *Bacteremia (strep pneumonia): / above -Serial lactic acid , Procalcitonin level -Repeat blood cultures X2 on 08/25, no growth to date -cbc w/ auto diff in the morning to trend WBC -Rocephin, 10-14 day course of abx *Diarrhea: resolved -C diff toxin PCR NEGATIVE *Depression with anxiety: -Fluoxetine *h/o COPD(not on home O2), stable: -DuoNEB NEB PRN wheezing or shortness of breath -Trelegy Ellipta , Spiriva *Obstructive sleep apnea: -CPAP at night while sleeping *h/o CHF: -Saline lock, -Resume Torsemide *Restless leg syndrome: -Pramipexole *HTN: -Resume Torsemide *FLAVIA on CKD III: -Avoid nephrotoxic agents -CMP in the morning to trend kidney functions *Anemia: monitor H&H *Obesity: bmi 33 *Generalized weakness/deconditioning: -pt/ot -CM for placement needs *ppx: Lovenox / home ppi Code status: [employer] Spent With Patient Time: Total time spent is greater than 50% in coordination of care (as documented) at patient's floor/unit and/or counseling patient: Subsequent: Total time with patient: 35 - 49 minutes QUALITY VTE Deep Vein Thrombosis/Pulmonary Embolism Present on Admission: No
[2022-08-29] MEDS ORDERED: BUTALB/ACETAMINOPHEN/CAFFEINE 1 TABLET PO PRN (09:12)
[2022-08-29] MEDS ORDERED: diphenhydrAMINE 25 MG CAPSULE PO SCH (09:12)
[2022-08-29] MEDS: HYDROcodone/APAP 5/325MG TABLET PO PRN (09:40)
[2022-08-29] MEDS: cefTRIAXone 2 GM in DEXTROSE 5% IN WATER 50 ML IV SCH (09:40)
[2022-08-29] MEDS: ENOXAPARIN 40 MG/0.4 ML SYRINGE SQ SCH (09:40)
[2022-08-29] MEDS: FLUoxetine HCL 10 MG CAPSULE PO SCH (09:41)
[2022-08-29] MEDS: PREGABALIN 25 MG CAPSULE PO SCH (09:41)
[2022-08-29] MEDS: TORSEMIDE 20 MG TABLET PO SCH (09:42)
[2022-08-29] MEDS: Fluticasone-Umeclidin-Vilanter [Trelegy Ellipta] PO SCH (09:42)
[2022-08-29] MEDS: BACLOFEN 10 MG TABLET PO SCH ×2 (09:42→20:43)
[2022-08-29] MEDS: MULTIVIT,THER IRON,CA,FA & MIN 1 TABLET PO SCH (09:42)
[2022-08-29] MEDS: PRAMIPEXOLE 0.25 MG TABLET PO SCH (20:43)
[2022-08-30] MEDS: HYDROcodone/APAP 5/325MG TABLET PO PRN (01:52)
[2022-08-30] MEDS: 0.9 % SODIUM CHLORIDE 10 ML SYRINGE IV SCH ×2 (04:34→13:54)
--- NOTE | 2022-08-30 08:08 | Internal Med Progress Note ---
SUBJECTIVE Subjective Patient information: Note initiated : 08/30/22 at 8:07 am Service Date, if different from initiated Date: [] Patient: Savanah Rubio a 86 y/o F admitted on 08/25/22 for recent sepsis, weakness, frequent urination. Chief Complaint: [] Interval history: Ms. Rubio is a 86 year old F history of obstructive sleep apnea, restless leg syndrome, anxiety/depressions, hypertensions with chronic kidney disease stage III, COPD, CHF, presented with 3-day history of general body weakness, diarrhea, and right upper quadrant abdominal pain. She presented to our ED 2 days ago for similar symptoms, and found with CT abdomen pelvis to have sigmoid diverticulosis without diverticulitis, as well as moderate right lower lobe pneumonia with small right pleural effusions. She was being discharged back to [facility] with prescriptions of Augmentin and azithromycin. She returned it today for worsening symptoms with right upper quadrant abdominal pain, sharp, severe, intermittent, ongoing diarrhea, and worsening general body weakness. She denies any fever chills or diaphoresis. She denies any nausea vomiting and she has good appetite. Blood culture obtained from her initial visit positive for strep pneumoniae in both sets. Soft blood pressure upon ED presentation today as low as 85 over 45 mmHg. Rest of the vital signs within normal limits. Blood pressure normalized now after fluid resuscitation's. Labs today significant for lack of leukocytosis with WBC 6.5. Lactic acid 0.3. Procalcitonin level 1.01. Repeat chest x-ray today showing interval resolution of right basilar infiltrate and effusions. Admission request is called for strep pneumoniae bacteremia. 08/26: Afebrile overnight. WBC 7.6 this morning. Repeat blood culture no growth today. Respiratory panel all negative. Patient is on room air. Patient had a few small bowel movement overnight. She is still complaining of right upper quadrant moderate sharp abdominal pain. She has no nausea vomiting and she is able to tolerate oral intake. Differential diagnosis of abdominal pain right lower lobe pneumonia versus costochondritis versus constipations. We will continue antibiotics with Rocephin and azithromycin. We will continue IV fluid with normal saline at 75 cc/h. Continue to monitor culture results. We will offer stool softener and laxative with Colace, senna, milk of magnesia, and MiraLAX to promote bowel mov ement. We will continue to offer narcotics including morphine and [facility] for pain control. Overall condition guarded. Stay in [facility]. 08/27: Afebrile overnight. WBC 6.5. Repeat blood culture no growth to date. Patient had bowel movement overnight. She is on 2 L/min nasal cannula oxygen. She is complaining of mild shortness of breath. She is coming of cough with pink sputum. She is still complaining of moderate to severe right upper quadrant abdominal pain. Continue antibiotics with Rocephin and azithromycin while monitoring for repeat blood culture result. Continue normal saline running at 75 cc/h. Supplemental oxygen therapy. Incentive spirometry while awake. Continue stool softener and laxative Colace senna milk of magnesia and MiraLAX as needed to promote bowel movement. Overall condition guarded. Stay in [facility]. 08/28: Afebrile overnight. WBC 6.1. Repeat blood culture no growth to date. Patient had bowel movement overnight. She is on 2 L/min nasal cannula oxygen. She denies any shortness of breath and she has productive cough with clear sputum. She is coming of headache. She is coming of mild diffuse abdominal pain. Continue antibiotics with Rocephin and azithromycin while monitoring for repeat blood culture result. Saline lock. Supplemental oxygen therapy. Incentive spirometry while awake. Overall condition stable. Stay in [facility]. 08/29 Patient complains of poor sleep. Some itching over her forehead. Complains of headache. Has cough. Shortness of breath improving. Feeling weak. 08/30 Patient sitting up in chair. She seems to be doing well. She has residual cough. Would like a breathing treatment this morning. She is on room air. Review of Systems: denies headache/fever/chills/nausea/vomiting/chest or abdominal pain/diarrhea. Otherwise see above. PHYSICAL EXAM General: Alert, Awake, No acute Distress, obese Eyes/N/T: EOMI, no scleral icterus, Head/Neck: neck supple, full ROM, CV: RRR, 2/6SM, Pulm: mild wheeze right side, left clear, no respiratory distress Abd: soft, nontender, +BS x4 Ext: no clubbing/cyanosis/edema, nontender Neuro: Alert, no focal deficits, moves all extremities, , sensations intact b/l upper/lower Psychiatric: Skin: warm/dry, normal color Constitutional Vitals: Vital Signs Temp Pulse Resp BP Pulse Ox O2 Del Method O2 Flow Rate 97.5 F 75 20 139/73 92 Nasal Cannula 2 08/30/22 04:00 08/30/22 04:00 08/30/22 04:00 08/30/22 04:00 08/30/22 04:00 08/30/22 04:00 08/30/22 06:38 Period Temp Pulse Resp BP Sys/Travis Pulse Ox O2 Del Method O2 Flow Rate Last 24 Hr 97.0 F-98.1 F 72-96 16-24 138-155/67-74 92-100 Nasal Cannula- Room Air 1-2 Intake and Output 08/29/22 08/30/22 08/30/22 19:59 03:59 11:59 Intake Total 1050 360 Output Total 1400 550 200 Balance -350 -550 160 Weight 79.067 kg Intake & Output: Intake & Output 08/29/22 08/30/22 08/30/22 19:59 03:59 11:59 Intake Total 1050 360 Output Total 1400 550 200 Balance -350 -550 160 Weight 79.067 kg Intake: Oral 1050 360 Output: Void Amount 1400 550 200 Other: Meal Lunch Percent of Meal Consumed 100% Feeding Ability Independent Urine Appearance Clear Clear Clear Urine Color Light Kajal Yellow Bright Yellow Urine Odor Normal Normal Normal Stool Size Small Small Moderate Stool Color Brown Brown Brown Stool Consistency Soft Soft Soft # Voids 1 1 OBJ DATA Labs 08/28/22 05:29 08/28/22 05:29 Labs: Abnormal Lab Results 08/28/22 08/28/22 05:29 05:29 RBC 3.22 L Hgb 9.8 L Hct 31.9 L MCHC 30.7 L Immature Gran % (Auto) 0.8 H Lymph # (Auto) 1.18 L Anion Gap 5.0 L Calcium 8.5 L Albumin 2.9 L Albumin/Globulin Ratio 0.9 L Meds: Medications Acetaminophen (Acetaminophen 325 Mg Tablet) 650 mg PO Q6HP PRN; Protocol PRN Reason: Per Pain Protocol/Fever > 101 Last Admin: 08/28/22 13:46 Dose: 650 mg Acetaminophen/Butalbital/Caffeine (Butalb/Acetaminophen/Caffeine 1 Tablet) 1 tab PO Q4HP PRN PRN Reason: Headache Hydrocodone Bitart/Acetaminophen (Hydrocodone/Apap 5/325mg Tablet) 1 tab PO TIDP PRN PRN Reason: Pain Last Admin: 08/30/22 01:52 Dose: 1 tab Albuterol/Ipratropium (Ipratropium/Albuterol 3 Ml Ampul.Neb) 3 ml NEB Q4HRT PRN PRN Reason: Wheezing Last Admin: 08/29/22 03:24 Dose: 3 ml Baclofen (Baclofen 10 Mg Tablet) 10 mg PO BID [facility] Last Admin: 08/29/22 20:43 Dose: 10 mg Enoxaparin Sodium (Enoxaparin 40 Mg/0.4 Ml Syringe) 40 mg SQ DAILY [facility] Last Admin: 08/29/22 09:40 Dose: 40 mg Fluoxetine HCl (Fluoxetine Hcl 10 Mg Capsule) 10 mg PO QDAY [facility] Last Admin: 08/29/22 09:41 Dose: 10 mg Ceftriaxone Sodium 2 gm/ (Dextrose) 50 mls @ 100 mls/hr IV Q24H [facility]; Protocol Last Infusion: 08/29/22 10:10 Dose: Infused Iron Carb/Multivit/Springer/Folic Acid (Multivit,Ther Iron,Ca,Fa & Min 1 Tablet) 1 tab PO QAM [facility] Last Admin: 08/29/22 09:42 Dose: 1 tab Magnesium Hydroxide (Magnesium Hydroxide 30 Ml Oral.Susp) 30 ml PO BIDP PRN PRN Reason: Constipation Morphine Sulfate (Morphine 4 Mg/Ml Vial) 2 mg IV Q4HP PRN; Protocol PRN Reason: Per Pain Protocol Ondansetron HCl (Ondansetron 4 Mg/2 Ml Vial) 4 mg IV Q6HP PRN PRN Reason: Nausea And Vomiting Oxycodone HCl (Oxycodone Ir 5 Mg Tablet) 5 mg PO Q4HP PRN; Protocol PRN Reason: Per Pain Protocol Pantoprazole Sodium (Pantoprazole 40 Mg Tablet) 40 mg PO QAMAC [facility] Last Admin: 08/29/22 07:44 Dose: 40 mg Fluticasone- Umeclidin-Vilanter [ Trelegy Ellipta] 1 dose PO QDAY [facility] Last Admin: 08/29/22 09:42 Dose: Not Given Pramipexole Dihydrochloride (Pramipexole 0.25 Mg Tablet) 0.5 mg PO HS [facility] Last Admin: 08/29/22 20:43 Dose: 0.5 mg Pregabalin (Pregabalin 25 Mg Capsule) 50 mg PO QDAY [facility] Last Admin: 08/29/22 09:41 Dose: 50 mg Sodium Chloride (0.9 % Sodium Chloride 10 Ml Syringe) 10 ml IV Q8 [facility] Last Admin: 08/30/22 04:34 Dose: 10 ml Torsemide (Torsemide 20 Mg Tablet) 10 mg PO QDAY [facility] Last Admin: 08/29/22 09:42 Dose: 10 mg Trazodone HCl (Trazodone Hcl 50 Mg Tablet) 25 mg PO HSP PRN PRN Reason: Insomnia A/P Narrative A/P Narrative: Assessment and Plans: *RLL PNA: -Repeat CXR showing improvement -Cover with Rocephin and Zithromax -Supplemental oxygen therapy titrate to achieve spo2>=88% -Incentive spirometry *Bacteremia (strep pneumonia): / above -Serial lactic acid , Procalcitonin level -Repeat blood cultures X2 on 08/25, no growth to date -cbc w/ auto diff in the morning to trend WBC -Rocephin, 10-14 day course of abx *Diarrhea: resolved -C diff toxin PCR NEGATIVE *Depression with anxiety: -Fluoxetine *h/o COPD(not on home O2), stable: -DuoNEB NEB PRN wheezing or shortness of breath -Rebeka Slade *Obstructive sleep apnea: -CPAP at night while sleeping *h/o CHF: -Saline lock, -Resume Torsemide *Restless leg syndrome: -Pramipexole *HTN: -Resume Torsemide *FLAVIA on CKD III: improved -Avoid nephrotoxic agents -CMP in the morning to trend kidney functions *Anemia: monitor H&H *Obesity: bmi 33 *Generalized weakness/deconditioning: -pt/ot -CM for placement needs *ppx: Lovenox / home ppi Code status: [employer] Spent With Patient Time: Total time spent is greater than 50% in coordination of care (as documented) at patient's floor/unit and/or counseling patient: Subsequent: Total time with patient: 35 - 49 minutes QUALITY VTE Deep Vein Thrombosis/Pulmonary Embolism Present on Admission: No
[2022-08-30] MEDS: PANTOPRAZOLE 40 MG TABLET PO SCH (08:27)
[2022-08-30] MEDS: PREGABALIN 25 MG CAPSULE PO SCH (08:55)
[2022-08-30] MEDS: FLUoxetine HCL 10 MG CAPSULE PO SCH (08:56)
[2022-08-30] MEDS: TORSEMIDE 20 MG TABLET PO SCH (08:56)
[2022-08-30] MEDS: BACLOFEN 10 MG TABLET PO SCH (08:56)
[2022-08-30] MEDS: ENOXAPARIN 40 MG/0.4 ML SYRINGE SQ SCH (08:56)
[2022-08-30] MEDS: MULTIVIT,THER IRON,CA,FA & MIN 1 TABLET PO SCH (08:56)
[2022-08-30] MEDS: Fluticasone-Umeclidin-Vilanter [Trelegy Ellipta] PO SCH (08:57)
[2022-08-30] MEDS: cefTRIAXone 2 GM in DEXTROSE 5% IN WATER 50 ML IV SCH (09:09)
[2022-08-30] MEDS: IPRATROPIUM/ALBUTEROL 3 ML AMPUL.NEB NEB PRN (09:59)
== END 2022-08-30 18:30 | DRG 194 ==
LOC: ED 09:52 → MEDSUR 14:16
PROVIDERS: ADMIT Internal Medicine; ATTEND Internal Medicine